=== PATIENT | male | born 1935 | race Caucasian/White ===

== ENCOUNTER 2024-05-22 18:23 | Inpatient (IN) | payer OTHER, SELFPAY ==
[2024-05-22 18:25] VITALS: BP 166/76; PULSE 51; RESP 18; TEMP 36.7; O2SAT 98
[2024-05-22 19:36] VITALS: BMI 20.8
--- NOTE | 2024-05-22 19:55 | XR_ITS ---
Examination: CT brain head without contrast. 2-D sagittal coronal reconstructions Date and time of exam:May 22, 20242024 hours INDICATIONS: Patient fell today with injury to the head, head pain CTDI: vol (mGy):54.6 DLP: (mGycm):1 Technique: Multiple CT axial sections of the brain have been obtained, 5 mm slice thickness. Contrast has not been administered. 2-D sagittal, coronal reconstructions have been obtained Low dose protocols were performed. One or more of the following dose reduction techniques were used; automated exposure control, adjustment of the mA and/or KV according to patient size, use of iterative reconstruction technique. Findings: No significant ventricular enlargement. Old infarct right cerebellar hemisphere Intra-axial or extra-axial hemorrhage density is not seen. No mass effect or midline shift Basal cisterns are not remarkable. Fourth ventricle is midline. Cranial vault intact. Old appearing fracture medial wall right orbit Impression: Negative for acute hemorrhage, mass effect or midline shift
--- NOTE | 2024-05-22 19:55 | XR_ITS ---
Examination: CT chest, without intravenous contrast. CT abdomen, without intravenous contrast. CT pelvis, without intravenous contrast. 2-D sagittal and coronal reconstructions. 3-D reconstructions. Date and time of exam:May 22, 20242024 hours INDICATIONS: Patient fell today with injury to the chest and abdomen, chest pain and abdomen pain CTDI vol (mgy) 8.33 DLP (MGycm)683 Technique: Multiple CT images, 3.0 mm slice thickness, obtained chest, abdomen, pelvis, with the high-resolution 64 slice scanner.. Sagittal and coronal 2-D reconstructions are obtained. 3-D reconstructions Low dose protocols were performed. One or more of the following dose reduction techniques were used; automated exposure control, adjustment of the mA and/or KV according to patient size, use of iterative reconstruction technique. Findings: Thoracic aorta and pulmonary arteries appear intact on this noncontrast study No pneumothorax pulmonary contusion or hemothorax The manubrium of the sternum intact No thoracic vertebral body compression fracture Acute fracture left fifth rib anteriorly without displacement Acute fracture left sixth rib anteriorly without displacement No liver splenic or renal laceration, no perinephric hematoma No gallstones Normal pancreas Abdominal aorta is intact, no free blood in the abdomen Negative for pneumoperitoneum Urinary bladder is intact Transverse prostate dimension 4.7 cm No acute lumbar fracture Bones of the pelvis demonstrate no acute fracture, hips are intact IMPRESSION: Thoracic aorta pulmonary arteries intact No pneumothorax, pulmonary contusion or hemothorax Acute nondisplaced fractures left fifth and sixth ribs anteriorly No abdominal pelvic laceration Abdominal aorta intact No free blood in the abdomen or pelvis
--- NOTE | 2024-05-22 19:55 | XR_ITS ---
Examination: CT cervical spine without contrast 2-D sagittal reconstructions 2-D coronal reconstructions 3-D reconstructions. Exam date and time:May 22, 20242021 hours INDICATIONS: Patient fell today with injury to the neck, neck pain CTDI:vol (mGy 8.06 DLP: (mGycm) 188 Technique: Multiple 2 mm axial sections of the cervical spine have been obtained. The coronal and sagittal reconstructions have been obtained. 3-D reconstructions have been obtained. Low dose protocols were performed. One or more of the following dose reduction techniques were used; automated exposure control, adjustment of the mA and/or KV according to patient size, use of iterative reconstruction technique. Findings: Axial sections demonstrate intact base of the skull. C1 exhibit satisfactory relationship to the odontoid. No acute cervical vertebral body fracture seen. Alignment posterior spinous processes satisfactory. Impression: No acute cervical fracture.
--- NOTE | 2024-05-22 19:57 | PD.EDFALL ---
ED Fall Injury RME/HPI General Chief Complaint: Fall Stated Complaint: FALL Time Seen by Provider: 05/22/24 19:29 Arrival date/time: 05/22/24 18:23 RME / HPI RME / HPI Narrative: 88-year-old male patient was brought in by EMS for evaluation regarding ground-level fall. Apparently patient was going to the restroom and the heard something loud and patient was noted on the floor. Patient sustained laceration to the scalp occipital area. Patient denies any LOC denies any vomiting denies any neck pain but complain of pain to the left anterior lateral chest wall. Denies any hip pain or pelvic pain. Patient is able to be walking but wobbly. Tetanus vaccination is unknown patient has taken it better. Related Data Home Medications ?Medication ?Instructions ?Recorded ?Confirmed latanoprost 0.005 % eye drops 1 drp Both eyes QPM 12/13/21 12/14/22 tamsulosin 0.4 mg capsule 0.4 mg PO QDAY 12/13/21 12/14/22 Allergies Allergy/AdvReac Type Severity Reaction Status Date / Time codeine Allergy Hives Verified 12/14/22 08:21 Review of Systems Review of Systems Narrative Review of Systems: Review of system reviewed and within normal limits except mentioned in HPI ED Exam Narrative Physical exam: VITAL SIGNS: Reviewed. GENERAL APPEARANCE: Alert and interactive, follows commands, no acute distress, HEAD AND FACE: 2 cm gaping laceration scalp, occipital area ENT: PERRL, pink conjunctivitis, eyelid no trauma, Mucous membrane moist. NECK: Supple, nontender, no nuchal rigidity. CHEST: Left anterolateral chest wall tenderness, no crepitus, no paradoxical movement, no retractions. LUNGS: Clear, well ventilated, symmetric, no rales, no wheezing, no ronchi, no stridor, good breath sounds bilaterally. HEART: Regular rate, regular rhythm, no murmur, no gallops. ABDOMEN: Soft, positive bowel sounds, nondistended, no guarding, nontender, no rebound, no masses, RECTAL: Deferred. GENITAL: Deferred. NEUROLOGICAL: Gross motor function intact sensory function intact, Appropriate for age. MUSCULOSKELETAL: low back nontender, full range of motion. EXTREMITIES: Nontender, full range of motion. SKIN: Color pink, dry, no rash, no lacerations, no abrasions, no contusions. LYMPHATICS: Deferred. Course Quality Measures none Orders Category Date Time Status COVID-19 Screening Questionnaire NOW Care 05/22/24 23:13 Active Decision to Admit X1 Care 05/22/24 23:13 Active EKG (ED ONLY) *Do not use* NOW Care 05/22/24 20:37 Completed Consult to Neurology / Tele-Neurology Stat Cons 05/22/24 23:[address] cervical spine wo con Stat Exams 05/22/24 19:[address] chest abdomen pelvis wo Stat Exams 05/22/24 19:[address] head/brain wo con Stat Exams 05/22/24 19:55 Completed EKG (ED Only) Stat Exams 05/22/24 20:37 Ordered CBC [CBC] Stat Lab 05/22/24 20:46 Completed CMP [Comprehensive Metabolic Panel] Stat Lab 05/22/24 20:46 Completed UA, C/S IF [Urinalysis, C/S if Indicated] Stat Lab 05/22/24 20:50 Completed Acetaminophen Tab [Tylenol ES Tab] Med 05/22/24 19:55 Discontinued 1,000 mg PO X1 ONE Tet,Diphth,Pertuss(Acell)-Tdap [Boostrix Vacc] Med 05/22/24 19:55 Discontinued 0.5 ml IMI .ONCE ONE Vital Signs Vital signs: Vital Signs Temperature 98.1 F 05/22/24 18:25 Pulse Rate 51 L 05/22/24 18:25 Respiratory Rate 18 05/22/24 18:25 Blood Pressure 166/76 H 05/22/24 18:25 Pulse Oximetry (%) 98 05/22/24 18:25 Oxygen Delivery Method Room Air 05/22/24 18:25 Fall MDM Narrative MDM Narrative:: 88-year-old male patient was brought in by EMS for evaluation regarding ground-level fall. Apparently patient was going to the restroom and the heard something loud and patient was noted on the floor. Patient sustained laceration to the scalp occipital area. Patient denies any LOC denies any vomiting denies any neck pain but complain of pain to the left anterior lateral chest wall. Denies any hip pain or pelvic pain. Patient is able to be walking but wobbly. Tetanus vaccination is unknown patient has taken it better. Patient's workup showed nondisplaced fracture of fifth and 6 rib on the left, no pneumothorax no hemothorax noted. CT scan of the head came back unremarkable CT scan of the neck came back unremarkable. Laboratory workup also came all came back normal. I was about to discharge the patient however while talking to the patient patient developed sudden onset of unresponsiveness, changes in color, become dusky and slightly cyanotic, and was shaking. Lasting for at least 20 seconds. Me and the witnessed it. I spoke to neurologist on-call, Dr Mederos, discussed the case, who advised me to admit the patient for further management and observation. Spoke with hospitalist, who admitted the patient. Patient data External records reviewed:: None Clinical information provided by:: none Social determinants that could affect healthcare access:: none Patient has the following chronic illnesses:: BPH, dementia, How is presenting disease/condition affected by chronic disease/condition?: exacerbated by Evaluation data The following diagnostics were reviewed and interpreted by me:: lab results, radiology exam(s) and EKG tracing(s) Lab and/or radiology exams considered but not ordered:: None Interpretation Summary: EKG sinus rhythm, ventricular rate of 84 bpm, MT interval 180 MS, no ST segment elevation depression noted. The rest of the labs see MDM Medications / Prescriptions Medications or Prescriptions considered but not ordered:: None Medication administrations:: Medication Administration History Discontinued Medications Acetaminophen (Acetaminophen 500 Mg Tablet) 1,000 mg PO X1 ONE Stop: 05/22/24 19:56 Last Admin: 05/22/24 20:06 Dose: 1,000 mg Documented By: LB Diphtheria/Tetanus/Acell Pertussis (Diphth,Pertuss(Acell),Tet Vac 0.5 Ml Vial) 0.5 ml IMi .ONCE ONE Stop: 05/22/24 19:56 Last Admin: 05/22/24 20:07 Dose: 0.5 ml Documented By: LB Boostrix and Tylenol Consultations Consultation(s) initiated? (list below): No Diagnosis Fall Differential Diagnosis: other (Fall, scalp laceration, rib fracture,) Most likely diagnosis given after review of the tests above:: Fall, scalp laceration, rib fracture, unexplained abnormal neurological episode Admission Indicated Admission indicated?: indicated Explain why admission is indicated or not indicated:: Patient is to be admitted for further management Admission Request Was there a request for admission?: Yes Admission Attestation Admission request attestation: Discussed case with [Dr. Angel] from Hospitalist service regarding admission. Discussed patients ED course, exam findings, labs, and radiology results. The Hospitalist [agrees] to accept the patient for admission. Disposition Plan Disposition Plan: Admit Discharge Plan Plan Patient Disposition: Admit Acute Care w/in Hospital Disposition Comment: stable Prescriptions/Referrals Prescriptions/Med Rec: No Action tamsulosin 0.4 mg capsule 0.4 mg PO QDAY latanoprost 0.005 % drops 1 drp Both eyes QPM Referrals: No Primary/Family,Physician [Primary Care Provider] - In 1 week Problem List Clinical Impression: Fall, Fracture of rib Patient/Caregiver Discharge Instructions Print Language: Kittitian Stand Alone Forms: [facility] Award Info., Patient Portal Info Letter
[2024-05-22] MEDS: ACETAMINOPHEN 500 MG TABLET 1000 MG PO (20:06)
[2024-05-22] MEDS: DIPHTH,PERTUSS(ACELL),TET VAC 0.5 ML VIAL IMi (20:07)
[2024-05-22 21:02] VITALS: BP 141/62; PULSE 74; RESP 18; O2SAT 98
[2024-05-22 21:05] LABS: Basophils % (Auto) 0 % (0-2.5); Eosinophils # (Auto) 0.1 Thou/mm3 (0.0-0.5); Eosinophils % (Auto) 1 % (0-10); Hematocrit 37.5 % (41.0-53.0); Hemoglobin 12.9 g/dL (13.5-16.0); Immature Granulocytes % (Auto) 0 % (0-0); Immature Granulocytes Auto 0.02 Thou/mm3 (0.00-0.00); Lymphocytes # (Auto) 0.9 Thou/mm3 (1.0-4.8); Lymphocytes % (Auto) 10 % (10-50); Mean Corpuscular HGB Conc 34.4 g/dl (31.0-37.0); Mean Corpuscular Hemoglobin 31.4 pg (25.0-35.0); Mean Corpuscular Volume 91 fL (80-100); Monocytes # (Auto) 0.6 Thou/mm3 (0.0-0.8); Monocytes % (Auto) 7 % (0-12); Neutrophils # (Auto) 7.6 Thou/mm3 (1.8-7.7); Neutrophils % (Auto) 82 % (37-80); Nucleated Red Blood Cell % 0 /100 WBC (0); Platelet Count 216 Thou/mm3 (140-440); RDW Standard Deviation 40.4 fL (35.1-43.9); Red Blood Count 4.11 Miln/mm3 (4.50-5.90); White Blood Count 9.3 Thou/mm3 (3.8-10.6)
[2024-05-22 21:10] LABS: Collection Type, Urine Clean Catch; Squamous Epithelial Cell,Urine 0 /hpf (0-5)
[2024-05-22 21:13] LABS: Bilirubin,Urine Negative (Negative); Blood,Urine Trace (Negative); Clarity,Urine Clear (Clear/Hazy); Color,Urine Lt-Yellow (Lt Yel-Yel); Culture Indicated,Urine Not Indicated; Glucose, Urine Negative (Negative); Ketones,Urine Negative (Negative); Leukocyte Esterase,Urine Negative (Negative); Nitrite,Urine Negative (Negative); Protein,Urine Trace (Neg - Trace); RBC,Urine 26 /hpf (0-3); Specific Gravity,Urine 1.017 (1.001-1.035); Urobilinogen,Urine Negative mg/dL (0.0-1.0); WBC,Urine 4 /hpf (0-5)
[2024-05-22 21:27] LABS: Alanine Aminotransferase 17 U/L (10-49); Albumin, Serum 4.2 gm/dL (3.4-4.8); Albumin/Globulin Ratio 1.6 (1.2-2.2); Alkaline Phosphatase 113 U/L (46-116); Anion Gap 7 (7-16); Aspartate Amino Transferase 21 U/L (0-34); BUN/Creatinine Ratio 15 Ratio (12-20); Bilirubin,Total 0.5 mg/dL (0.3-1.2); Blood Urea Nitrogen 16 mg/dL (9-23); Calcium 9.9 mg/dL (8.3-10.6); Calcium (Corrected) 9.9 mg/dL (8.5-10.1); Carbon Dioxide 28.5 mMol/L (20.0-31.0); Chloride 105 mMol/L (98-107); Creatinine (Component) 1.1 mg/dL (0.6-1.3); Estimated Creatinine Clearance 49.7 mL/min (>60); Globulin 2.6 gm/dL (2.3-3.5); Glucose 111 mg/dL (74-106); Osmolality,Calculated 281 (275-295); Potassium 4.9 mMol/L (3.4-5.1); Sodium 140 mMol/L (136-145); Total Protein 6.8 gm/dL (5.7-8.2); eGFR > 60 See Note
--- NOTE | 2024-05-22 21:30 | PC.NURSE ---
Addendum entered by Demarco Funes RN 05/22/24 23:25: 5 teresa per Clare BLAIR Original Note: Lac to back of head cleaned, stapled and dressed by Clare BLAIR.
[2024-05-22 23:00] VITALS: BP 156/72; PULSE 88; RESP 19; TEMP 36.6
--- NOTE | 2024-05-22 23:01 | PC.NURSE ---
Vladimir SEAT INSTALLER at bedside seeing pt. Results endorsed to pt and . Pt was shaky and had a blank stare. Hold discharge for now. SEAT INSTALLER is calling neurologist for consultation.
--- NOTE | 2024-05-22 23:14 | PC.NURSE ---
HBS in room seeing pt. at bedside.
[2024-05-23] VITALS (12 sets, daily range): BP systolic 115–158; BP diastolic 53–85; PULSE 64–90; RESP 15–98; TEMP 36.2–37.4; O2SAT 96–98; BMI 21.1; BMI 14.0
--- NOTE | 2024-05-23 | XR_ITS ---
Examination: MRI brain without intravenous contrast. Date and time of exam: 2024 1525 hrs. Indications: Dizziness episodes today Technique: Multiple axial and sagittal images of the brain obtained. Siemens high-resolution 1.5 Elsy short bore scanners utilized. Sagittal sections, T1-weighted, TR 500, TE 14, are performed. Axial sections proton-density and T2-weighted have been obtained. Inversion recovery axial images, TR 9, 260, TE 111, TI 2500. Diffusion weighted images, axial sections, TR 4800, TE 128, B value 1000 Axial sections, ADC map, TR 4800, TE 128 Findings: Enlargement of the sella turcica is not present. The optic chiasm and infundibular are not remarkable. Prepontine and interpeduncular cisterns are not enlarged. There is no localized enlargement of the medulla or greg. Fourth ventricle and cerebellar tonsils appear normal in position. No subacute area of hemorrhage density is seen. Mass in the cerebellopontine angle region is not evident. Globes symmetrical. Orbital musculature including medial lateral rectus muscles do not exhibit abnormality. Diffusion-weighted images demonstrate no focus of restricted diffusion. Increased white matter signal prominent including focus of increased signal on the FLAIR images in the right cerebellar hemisphere Mass effect upon the ventricular system is not identified. Impression: Negative for acute hemorrhage mass effect or midline shift No acute infarct Prominent foci of increased signal in the white matter including focus increased signal on the FLAIR images in the right cerebellar hemisphere Consider brain MRI post contrast follow-up
--- NOTE | 2024-05-23 02:47 | PD.RESHP ---
Documentation for date of: 05/23/24 HPI History of Present Illness Chief complaint: Status post ground-level fall History of present illness: Mr. Gomes is an 88-year-old male with past medical history significant for glaucoma, BPH, dementia who presented to the ED after having a ground-level fall. Patient states that he hit his head, and lost consciousness at least for 1 minute. Per patient's , patient has not had any falls in the past, and is able to ambulate on his own. Patient is also able to perform all of his IADLs. After the fall, patient had dizziness, and felt like he was going to fall, and was very off balance. Patient's baseline is A&O x [address] In the ED, patient noted to have a posterior laceration which was stapled successfully and no bleeding noted after. Her 11 PM in the ED, patient started having bilateral shakes lasting about 15 seconds, and eyes rolled to the ceiling per ED provider. Patient's at bedside only noted the bilateral shaking, and attributes that to patient wanting to say something but unable to produce speech. Associated symptoms also include left lateral chest pain on deep inspiration due to acute fifth and sixth rib fractures and tenderness to palpation anterior surface of head. Patient denies any chest pain, nausea/vomiting, constipation, diarrhea, numbness in lower extremities. Of note, patient was recently out of his memantine for a week and a half, and just restarted on 05/13/2024, and started noticing patient having difficulty producing speech. In the ED, patient presented with blood pressure 126/76, heart rate of 51 otherwise hemodynamically stable. Labs significant for slightly decreased hemoglobin of 12.9. UA negative for UTI, but did show [address] negative for any acute hemorrhage or bleed. Cervical spine CT showed no acute cervical fracture. CT chest abdomen pelvis showed no pneumothorax no free blood in the abdomen or pelvis but did show acute left fifth and sixth ribs fracture. Past medical history: As mentioned above Past surgical history: Appendectomy at 16 Family history: Noncontributory Social history: Denies any smoking, illicit drug use, alcohol use. Allergies: Codeine Patient will be admitted for further management of syncope status post ground-level fall. Review of Systems Review of Systems Systems Reviewed: All systems reviewed, normal except as documented Exam Vital Signs Temp Pulse Resp BP Pulse Ox O2 Del Method 98 F 74 20 115/53 L 97 Room Air 05/23/24 02:36 05/23/24 02:36 05/23/24 01:21 05/23/24 02:36 05/23/24 02:36 05/23/24 02:36 Narrative Exam General Appearance: Pt in mild acute distress laying in bed. Well-nourished and cooperative to most questions. HEENT: NC/AT except for 2 cm posterior laceration but is now covered in gauze. No scleral icterus, no conjunctival pallor, MMM Lungs: CTAB, no wheezes or crackles appreciated, left rib cage pain on deep inspiration CVS: RRR, S1/S2 heard, no murmurs or rubs appreciated ABD: Soft, non-tender, non-distended, BS + in all 4 quadrants EXT: no deformity/edema/lesions/cyanosis/clubbing, radial pulses 2+ BL, DP pulses 2 + BL SKIN: Skin exam normal except for seborrheic keratosis diffuse across back without any rashes. Neuro: A&O x [address]. No gross neurological deficits. Motor and sensory grossly intact in B/L UL and LL. Psych: Appropriate mood and affect Results: Labs 05/23/24 05:36 05/23/24 05:36 Labs: Short CBC 05/22/24 Range/Units 20:46 WBC 9.3 (3.8-10.6) Thou/mm3 Hgb 12.9 L (13.5-16.0) g/dL Hct 37.5 L (41.0-53.0) % Plt Count 216 (140-440) Thou/mm3 BMP 05/22/24 20:46 Sodium 140 Potassium 4.9 Chloride 105 Carbon Dioxide 28.5 BUN 16 Creatinine 1.1 Glucose 111 H Calcium 9.9 Liver Function 05/22/24 Range/Units 20:46 Total Bilirubin 0.5 (0.3-1.2) mg/dL AST 21 (0-34) U/L ALT 17 (10-49) U/L Alkaline Phosphatase 113 (46-116) U/L Albumin 4.2 (3.4-4.8) gm/dL Urine 05/22/24 Range/Units 20:50 Urine Color Lt-Yellow (Lt Yel-Yel) Urine Clarity Clear (Clear/Hazy) Urine pH 7.0 (5.0-7.0) Ur Specific [place] 1.017 (1.001-1.035) Urine Protein Trace (Neg - Trace) Urine Glucose (UA) Negative (Negative) Quality Measures Quality Measures none Advance care planning discussed with:: patient Medications Home Medications and Allergies Home Medications ?Medication ?Instructions ?Recorded ?Confirmed ?Type latanoprost 0.005 % eye drops 1 drp Both eyes QPM 12/13/21 05/23/24 History tamsulosin 0.4 mg capsule 0.4 mg PO QDAY 12/13/21 05/23/24 History memantine 5 mg tablet 5 mg PO BID 05/23/24 05/23/24 History Allergies Allergy/AdvReac Type Severity Reaction Status Date / Time codeine Allergy Hives Verified 12/14/22 08:21 Visit Medications Acetaminophen (Acetaminophen 325 Mg Tablet) 650 mg PO Q6H PRN PRN Reason: Fever >101.5 or Pain 1-3 Stop: 06/21/24 23:48 Heparin Sodium (Porcine) (Heparin Sod Inj 5000 Unit/Ml Vial) 5,000 unit SC Q12HR BLAIR Stop: 06/06/24 08:59 Latanoprost (Latanoprost Op Leyla 0.005% 2.5 Ml Btl) 0 drop BOTH EYES HS BLAIR Stop: 06/22/24 20:59 Tamsulosin HCl (Tamsulosin Hcl 0.4 Mg Capsule) 0.4 mg PO QDAY BLAIR Stop: 06/22/24 08:59 Discontinued Medications Acetaminophen (Acetaminophen 500 Mg Tablet) 1,000 mg PO X1 ONE Stop: 05/22/24 19:56 Last Admin: 05/22/24 20:06 Dose: 1,000 mg Diphtheria/Tetanus/Acell Pertussis (Diphth,Pertuss(Acell),Tet Vac 0.5 Ml Vial) 0.5 ml IMi .ONCE ONE Stop: 05/22/24 19:56 Last Admin: 05/22/24 20:07 Dose: 0.5 ml Assessment & Plan Plan Mr. Gomes is an 88-year-old male with past medical history significant for glaucoma, BPH, dementia who presented to the ED after having a ground-level fall and admitted for further management of syncope status post ground-level fall. #Syncope #Ground-level fall #? New onset seizure Patient presented with ground-level fall status post syncopal episode stating that he had some loss of consciousness lasting at least 1 minute. Patient also had a witnessed 15 seconds bilateral shaking with eyes rolled to the ceiling. Patient's denies patient ever having a seizure or having these shaking episodes. Patient most likely will have workup to determine cause of syncope either vasovagal, cardiac or neurogenic in nature. Imaging negative for any acute bleeds, but did note acute left fifth and sixth rib fractures. -Admitted to med/tele -Follow-up routine EKG, echocardiogram, orthostatic vitals -Consulted neurology, and recommended MRI and EEG -Ordered Tylenol for mild pain -Ordered PT -Ordered bedside swallow #Dementia Patient takes home memantine 5 mg twice daily. Patient's is concerned that patient's symptoms are due to restarting his home medications recently after being off for a week and a half. -Will reach out to neurology for further recommendations on whether to continue medication in the hospital #BPH Patient takes home tamsulosin 0.5 mg daily -Will restart home medication #Glaucoma Patient takes home latanoprost 1 drop in both eyes at nighttime -Will restart home medication Health Maintenance: DVT prophylaxis: Heparin subcu Diet: Carb consistent [place]: No Lines: PIV Supplemental O2: As needed CODE STATUS: Full code Disposition: Patient admitted to med/tele for further management of syncope workup. Patient's plan and care discussed with my attending, Dr. Alma Mederos MD PGY-2 Attending Provider Attestation/Addendum I attest that I was physically present for the evaluation, physical examination, lab and imaging review of the patient with the residents. I discussed the case with the residents and agree with the findings and plans of care as documented above. Patient is an 88 years old male with past medical history of BPH, dementia and glaucoma who presented to the ED after having a ground-level fall. Patient hit his head during the fall and lost his consciousness for around a minute. At baseline, patient can ambulate and perform his ADLs without assistance. Patient had dizziness and imbalance immediately following the fall. At bedside, patient is alert but oriented to name and place only. Patient also complained of left lateral chest pain on deep inspiration and had tenderness around the same area along with anterior surface of the head. Denies nausea vomiting, bleeding from orifices. at bedside also mentioned that patient used to take memantine which was held for a while and was recently started on double the dose of memantine for about a week and a half. In the ED, his heart rate was 51 otherwise vitals were stable. Head CT was done which was negative for any acute hemorrhage or mass effect or midline shift. Cervical spine CT was negative for acute fractures. CT chest/abdomen/pelvis showed acute left fifth and sixth rib fracture. We will admit the patient for management of syncope and ground-level fall. We will obtain MRI, EEG, echocardiogram, orthostatic vitals and neurology consult. We will obtain bedside swallow evaluation and physical therapy. We will hold memantine for now pending neurology recommendation. Josselyn Marquez MD
--- NOTE | 2024-05-23 03:02 | PC.NURSE ---
up to [facility]SC with assist, venessa well.
--- NOTE | 2024-05-23 04:35 | EKG_ITS ---
[facility] Test Date: 2024-05-23 Pat Name: BERYL MCLAIN Department: Room: 81A Gender: Male Architectural Representative: ZAID : [id number] Requested By: Pepe Delgado Order Number: [id number] Reading MD: Pepe Delgado Measurements Intervals [place] Rate: 76 P: 56 IA: 160 QRS: 60 QRSD: 98 T: 21 QT: 395 QTc: 446 Interpretive Statements SINUS RHYTHM WITH SINUS ARRHYTHMIA MINIMAL VOLTAGE CRITERIA FOR LVH, CONSIDER NORMAL VARIANT [MEETS CRITERIA IN ONE OF: R(aVL), S(V1), R(V5), R(V5/V6)+S(V1)] No previous ECG available for comparison /store/S0/[id number]/ecg/[id number].pdf
--- NOTE | 2024-05-23 04:36 | PC.NURSE ---
pharmacy laboratory technician called regarding patient having irregular heart rhythm second degree heart block type II, patient is asymptomatic, patient alert and oriented, awake resting in bed comfortably, called Dr. Delgado regarding this, previous EKG in chart showed sinus rhythm, stat EKG ordered.
--- NOTE | 2024-05-23 05:15 | PC.NURSE ---
called Dr. Mederos regarding patient getting more confused, restless, patient keeps getting up out of bed. Avasure in place, continue to monitor patient.
--- NOTE | 2024-05-23 05:25 | PC.NURSE ---
property assessment monitor called patient having 3 episodes of ventricular stanby, lasting a few seconds each time. called Dr. Mederos regarding this patient is asymptomatic, no complaints at this time. No new orders at this time
[2024-05-23 06:05] LABS: Basophils % (Auto) 1 % (0-2.5); Eosinophils # (Auto) 0.1 Thou/mm3 (0.0-0.5); Eosinophils % (Auto) 1 % (0-10); Hematocrit 36.8 % (41.0-53.0); Hemoglobin 12.7 g/dL (13.5-16.0); Immature Granulocytes % (Auto) 0 % (0-0); Immature Granulocytes Auto 0.03 Thou/mm3 (0.00-0.00); Lymphocytes # (Auto) 1.7 Thou/mm3 (1.0-4.8); Lymphocytes % (Auto) 21 % (10-50); Mean Corpuscular HGB Conc 34.5 g/dl (31.0-37.0); Mean Corpuscular Hemoglobin 32.1 pg (25.0-35.0); Mean Corpuscular Volume 93 fL (80-100); Monocytes # (Auto) 0.9 Thou/mm3 (0.0-0.8); Monocytes % (Auto) 10 % (0-12); Neutrophils # (Auto) 5.7 Thou/mm3 (1.8-7.7); Neutrophils % (Auto) 68 % (37-80); Nucleated Red Blood Cell % 0 /100 WBC (0); Platelet Count 213 Thou/mm3 (140-440); RDW Standard Deviation 41.2 fL (35.1-43.9); Red Blood Count 3.96 Miln/mm3 (4.50-5.90); White Blood Count 8.5 Thou/mm3 (3.8-10.6)
[2024-05-23 06:44] LABS: Alanine Aminotransferase 15 U/L (10-49); Albumin, Serum 4.2 gm/dL (3.4-4.8); Albumin/Globulin Ratio 1.6 (1.2-2.2); Alkaline Phosphatase 102 U/L (46-116); Anion Gap 8 (7-16); Aspartate Amino Transferase 18 U/L (0-34); BUN/Creatinine Ratio 13 Ratio (12-20); Bilirubin,Total 0.8 mg/dL (0.3-1.2); Blood Urea Nitrogen 14 mg/dL (9-23); Calcium 9.9 mg/dL (8.3-10.6); Calcium (Corrected) 9.9 mg/dL (8.5-10.1); Carbon Dioxide 27.2 mMol/L (20.0-31.0); Chloride 106 mMol/L (98-107); Creatinine (Component) 1.1 mg/dL (0.6-1.3); Estimated Creatinine Clearance 50.4 mL/min (>60); Globulin 2.6 gm/dL (2.3-3.5); Glucose 114 mg/dL (74-106); Magnesium 2.2 mg/dL (1.6-2.6); Osmolality,Calculated 282 (275-295); Potassium 3.8 mMol/L (3.4-5.1); Sodium 141 mMol/L (136-145); Total Protein 6.8 gm/dL (5.7-8.2); eGFR > 60 See Note
[2024-05-23] MEDS: HEPARIN SOD INJ 5000 UNIT/ML VIAL SC ×2 (09:37→21:55)
[2024-05-23] MEDS: TAMSULOSIN HCL 0.4 MG CAPSULE PO (09:37)
--- NOTE | 2024-05-23 14:48 | ESPR_ITS ---
Documentation for date of: 05/23/24 Subjective Subjective Interval history: Patient seen and examined at bedside. He is awake, sitting upright eating. He is oriented to name only, pleasantly confused. Patient does not know how he got the laceration on the back of his head. Denies passing out. Per RN, patient without sitter would try to get out of bed and wander the halls. Otherwise he is redirectable. He has no acute complaints. No witnessed seizure since admission. Exam Vital Signs Temp Pulse Resp BP Pulse Ox O2 Del Method 98.5 F 81 25 H 146/63 H 98 Room Air 05/23/24 12:00 05/23/24 12:00 05/23/24 12:00 05/23/24 12:00 05/23/24 12:05/23/24 12:00 Narrative Exam Constitutional: NAD. AAO x 1 name only. HEENT: Bandage over head laceration posterior head. Vision grossly intact. Respiratory: CTAB bilaterally. Cardiac: Normal S1, S2. No MRG appreciated. Abdomen: Soft, non-distended, non-tender. MSK: No B/L LE edema. Skin: Warm, dry, intact. No obvious lesions. Neuro: Motor and sensation grossly intact. Psychiatric: Appropriate mood and affect. Objective Labs 05/24/24 04:23 05/24/24 04:23 Labs: Laboratory Results - last 24 hr 05/22/24 05/22/24 05/23/24 20:46 20:50 05:36 WBC 9.3 8.5 RBC 4.11 L 3.96 L Hgb 12.9 L 12.7 L Hct 37.5 L 36.8 L MCV 91 93 MCH 31.4 32.1 MCHC 34.4 34.5 RDW Std Deviation 40.4 41.2 Plt Count 216 213 Neut % (Auto) 82 H 68 Lymph % (Auto) 10 21 [place] % (Auto) 7 10 Eos % (Auto) 1 1 Baso % (Auto) 0 1 Neut # (Auto) 7.6 5.7 Lymph # (Auto) 0.9 L 1.7 [place] # (Auto) 0.6 0.9 H Eos # (Auto) 0.1 0.1 Baso # (Auto) 0.0 0.0 Immature Gran # (Auto) 0.02 H 0.03 H Absolute Nucleated RBC 0.00 0.00 Immature Gran % 0 0 Nucleated RBC % 0 0 Sodium 140 141 Potassium 4.9 3.8 D Chloride 105 106 Carbon Dioxide 28.5 27.2 Anion Gap 7 8 BUN 16 14 Creatinine 1.1 1.1 Estim Creat Clear Calc 49.7 L 50.4 L eGFR > 60 > 60 BUN/Creatinine Ratio 15 13 Glucose 111 H 114 H Calculated Osmolality 281 282 Calcium 9.9 9.9 Corrected Calcium 9.9 9.9 Magnesium 2.2 Total Bilirubin 0.5 0.8 AST 21 18 ALT 17 15 Alkaline Phosphatase 113 102 Total Protein 6.8 6.8 Albumin 4.2 4.2 Globulin 2.6 2.6 Albumin/Globulin Ratio 1.6 1.6 Ur Collection Type Clean Catch Urine Color Lt-Yellow Urine Clarity Clear Urine pH 7.0 Ur Specific [place] 1.017 Urine Protein Trace Urine Glucose (UA) Negative Urine Ketones Negative Urine Blood Trace Urine Nitrite Negative Urine Bilirubin Negative Urine Urobilinogen (Auto) Negative Ur Leukocyte Esterase Negative Urine RBC 26 H Urine WBC 4 Ur Squamous Epith Cells 0 Urine Bacteria None Ur Culture Indicated? Not Indicated Quality Measures Quality Measures none Advance care planning discussed with:: other Assessment & Plan Assessment Current Active Medications: Generic Name Dose Route Start Last Admin Trade Name Freq PRN Reason Stop Dose Admin Acetaminophen 650 mg 05/22/24 23:49 Acetaminophen 325 Mg Tablet PO 06/21/24 23:48 Q6H PRN Fever >101.5 or Pain 1-3 Heparin Sodium (Porcine) 5,000 unit 05/23/24 09:00 05/23/24 09:37 Heparin Sod Inj 5000 Unit/Ml Vial SC 06/06/24 08:59 5,000 unit Q12HR BLAIR Administration Latanoprost 0 drop 05/23/24 21:00 Latanoprost Op Leyla 0.005% 2.5 Ml Btl BOTH EYES 06/22/24 20:59 HS BLAIR Tamsulosin HCl 0.4 mg 05/23/24 09:00 05/23/24 09:37 Tamsulosin Hcl 0.4 Mg Capsule PO 06/22/24 08:59 0.4 mg QDAY BLAIR Administration Plan Mr. Gomes is an 88-year-old male with past medical history significant for glaucoma, BPH, dementia who presented to the ED after having a ground-level fall and admitted for further management of syncope status post ground-level fall. #Syncope #Ground-level fall #New onset seizure Patient presented with ground-level fall status post syncopal episode stating that he had some loss of consciousness lasting at least 1 minute. Patient also had a witnessed 15 seconds bilateral shaking with eyes rolled to the ceiling. Patient's denies patient ever having a seizure or having these shaking episodes. Patient most likely will have workup to determine cause of syncope either vasovagal, cardiac or neurogenic in nature. -Follow-up routine EKG, echocardiogram, orthostatic vitals -Consulted neurology, and recommended MRI and EEG -Ordered PT -EEG pending read -MRI ordered -Seizure precautions #Acute Left 5th and 6th rib fractures Secondary to GLF as seen on CT imaging - Pain management - Incentive spirometer #Dementia Patient takes home memantine 5 mg twice daily. Patient's is concerned that patient's symptoms are due to restarting his home medications recently after being off for a week and a half. - Restart pending med rec #BPH - Continue home tamsulosin #Glaucoma Patient takes home latanoprost 1 drop in both eyes at nighttime - Restart home latanoprost Health Maintenance: DVT prophylaxis: Heparin subcu Diet: Carb consistent [place]: No Lines: PIV Supplemental O2: As needed CODE STATUS: Full code Disposition: Patient admitted to med/tele for further management of syncope workup. I have reviewed and discussed the patient's care with my attending, Dr. Felix Najera MD PGY-3 Attending Provider Attestation/Addendum I have seen and examined the patient and all labs, vitals, imaging and agree with the assessment and plan as documented above. Patient EEG done today, pending final read but does appear to show some abnormal signaling c/w possible seizure like activity. Will continue to monitor and followup with neurology, seizure precautions in place. Won Washington MD
--- NOTE | 2024-05-23 15:18 | RESP.EEG ---
EEG COMPLETED AND READY FOR REVIEW. WILL TEXT DR. Angel
--- NOTE | 2024-05-23 19:36 | PC.NURSE ---
public works technician called and said patient had a 5 seconds ventricular pause twice. Patient is resting, family on bed side. MD notified.
--- NOTE | 2024-05-23 20:31 | PC.NURSE ---
Notified by MT pt had an 8 second Ventricular pause, MD made aware no new orders at this time. will continue plan of care
--- NOTE | 2024-05-23 20:31 | PC.NURSE ---
notified by MT pt had a 8 second ventricular pause, md made aware no new orders at this time. will continue plan of care
--- NOTE | 2024-05-23 23:57 | VVPN_ITS ---
Telemedicine visit statement This visit was conducted with the use of interactive audio and video telecommunications system that permits real time communication between the patient and the provider. Patient's verbal consent for virtual visit was obtained on 05/23/24 at 2357. Documentation for date of: 05/23/24 Virtual exam Vital Signs Temp Pulse Resp BP Pulse Ox O2 Del Method 99.3 F 81 23 H 138/67 H 96 Room Air 05/23/24 20:00 05/23/24 21:07 05/23/24 21:07 05/23/24 20:00 05/23/24 20:00 05/23/24 20:00 Objective Labs 05/23/24 05:36 05/23/24 05:36 Labs: Laboratory Results - last 24 hr 05/23/24 05:36 WBC 8.5 RBC 3.96 L Hgb 12.7 L Hct 36.8 L MCV 93 MCH 32.1 MCHC 34.5 RDW Std Deviation 41.2 Plt Count 213 Neut % (Auto) 68 Lymph % (Auto) 21 [place] % (Auto) 10 Eos % (Auto) 1 Baso % (Auto) 1 Neut # (Auto) 5.7 Lymph # (Auto) 1.7 [place] # (Auto) 0.9 H Eos # (Auto) 0.1 Baso # (Auto) 0.0 Immature Gran # (Auto) 0.03 H Absolute Nucleated RBC 0.00 Immature Gran % 0 Nucleated RBC % 0 Sodium 141 Potassium 3.8 D Chloride 106 Carbon Dioxide 27.2 Anion Gap 8 BUN 14 Creatinine 1.1 Estim Creat Clear Calc 50.4 L eGFR > 60 BUN/Creatinine Ratio 13 Glucose 114 H Calculated Osmolality 282 Calcium 9.9 Corrected Calcium 9.9 Magnesium 2.2 Total Bilirubin 0.8 AST 18 ALT 15 Alkaline Phosphatase 102 Total Protein 6.8 Albumin 4.2 Globulin 2.6 Albumin/Globulin Ratio 1.6
[2024-05-24 00:19] VITALS: PULSE 59
[2024-05-24 04:00] VITALS: BP 156/77; PULSE 57; PULSE 85; RESP 19; TEMP 37.2; O2SAT 95
[2024-05-24 05:37] LABS: Basophils % (Auto) 1 % (0-2.5); Eosinophils # (Auto) 0.2 Thou/mm3 (0.0-0.5); Eosinophils % (Auto) 3 % (0-10); Hematocrit 34.6 % (41.0-53.0); Hemoglobin 11.6 g/dL (13.5-16.0); Immature Granulocytes % (Auto) 0 % (0-0); Immature Granulocytes Auto 0.02 Thou/mm3 (0.00-0.00); Lymphocytes # (Auto) 1.3 Thou/mm3 (1.0-4.8); Lymphocytes % (Auto) 23 % (10-50); Mean Corpuscular HGB Conc 33.5 g/dl (31.0-37.0); Mean Corpuscular Hemoglobin 31.4 pg (25.0-35.0); Mean Corpuscular Volume 94 fL (80-100); Monocytes # (Auto) 0.7 Thou/mm3 (0.0-0.8); Monocytes % (Auto) 12 % (0-12); Neutrophils # (Auto) 3.6 Thou/mm3 (1.8-7.7); Neutrophils % (Auto) 62 % (37-80); Nucleated Red Blood Cell % 0 /100 WBC (0); Platelet Count 252 Thou/mm3 (140-440); RDW Standard Deviation 41.4 fL (35.1-43.9); Red Blood Count 3.69 Miln/mm3 (4.50-5.90); White Blood Count 5.9 Thou/mm3 (3.8-10.6)
[2024-05-24 06:08] LABS: Alanine Aminotransferase 14 U/L (10-49); Albumin, Serum 3.8 gm/dL (3.4-4.8); Albumin/Globulin Ratio 1.6 (1.2-2.2); Alkaline Phosphatase 86 U/L (46-116); Anion Gap 7 (7-16); Aspartate Amino Transferase 20 U/L (0-34); BUN/Creatinine Ratio 13 Ratio (12-20); Bilirubin,Total 0.8 mg/dL (0.3-1.2); Blood Urea Nitrogen 13 mg/dL (9-23); Calcium 9.2 mg/dL (8.3-10.6); Calcium (Corrected) 9.4 mg/dL (8.5-10.1); Carbon Dioxide 26.3 mMol/L (20.0-31.0); Chloride 108 mMol/L (98-107); Estimated Creatinine Clearance 55.4 mL/min (>60); Globulin 2.4 gm/dL (2.3-3.5); Glucose 88 mg/dL (74-106); Magnesium 2.2 mg/dL (1.6-2.6); Osmolality,Calculated 280 (275-295); Sodium 141 mMol/L (136-145); Total Protein 6.2 gm/dL (5.7-8.2); eGFR > 60 See Note
[2024-05-24 07:42] VITALS: PULSE 94; RESP 20; RESP 97
[2024-05-24 08:00] VITALS: BP 141/75; PULSE 79; RESP 18; TEMP 37; O2SAT 96
[2024-05-24] MEDS: TAMSULOSIN HCL 0.4 MG CAPSULE PO (08:37)
[2024-05-24] MEDS: DIVALPROEX SOD EC 125 MG TABEC 250 MG PO (08:37)
[2024-05-24] MEDS: HEPARIN SOD INJ 5000 UNIT/ML VIAL SC (08:37)
--- NOTE | 2024-05-24 11:33 | PC.SS ---
Beny Gomes is a 88-year-old male admitted to [place] for Ground Level Fall. SS conducted bedside contact with the patient to complete initial assessment and to discuss discharge planning, pt was resting therefore assessment was completed wioth his Sammie Gomes [phone] via phone.? Sammie confirmed demographic information. Sammie identifies herself as the pts surrogate decision maker. Patient resides at home, with her. Sammie states he is able to complete all ADL?s independently, no need for any source of DME. Pts PCP is Dr. Fontana at the [facility] (last visit was 4 months ago) and pharmacy of choice is [facility] [address] as well. DC option discussed and pt wishes to return home with HH as recommended by PT. Sammie reports their preference for HH is [facility]. Pts family will provide transportation upon DC. No further intervention required at this time, dialysis social worker would be available to address any further concerns. DC Plan: Home with HH ([facility] preferred) Address: Confirmed on FS Contact: -Sammie PCP: Addi ([place])
[2024-05-24 12:00] VITALS: BP 135/68; PULSE 70; PULSE 74; RESP 26; TEMP 36.7; O2SAT 95
--- NOTE | 2024-05-24 13:27 | ESDS_ITS ---
<Statement entered by Won Washington MD - 05/24/24 16:27> I have examined the patient, reviewed labs and imaging findings, discussed the case with the resident(s), and reviewed entered orders. I agree with the plan of care as outlined in this note, with these additional summaries/recommendations: Discussed case with neurology, patient will clear for discharge today with Depakote after identifying seizure activity on EEG. Unclear if seizure caused fall or fall cause seizure. Will send home with home health wound care for gash on the back of the skull and will send short 7-day course of Depakote to local [facility] while he awaits mail order longer-term prescription from [place] pharmacy. Advised follow-up with primary care within 1 week and with neurology within 1 week. Return to ER if new symptoms or worsening symptoms. Won Washington MD Planned Discharge Date 05/24/24 DS: Providers Provider Date of admission: 05/23/24 16:19 Primary care physician: Physician No Primary/Family Admitting Provider: Josselyn Marquez MD Attending Provider on Admission: Josselyn Marquez MD Consults: 05/22/24 23:06 Consult to Neurology / Tele-Neurology Stat Comment: Unexplained neurologic episode Consulting Provider: Adis Mederos 05/23/24 00:29 Referral Physical Therapy Routine Comment: Physician Instructions: 05/23/24 04:22 Referral Physical Therapy Routine Comment: Physician Instructions: Referral Respiratory Therapy Routine Comment: Attending Provider on DC: Won Washington MD Discharging Provider: Won Washington MD DS: Diagnosis Problem List Completed Was Problem List Reviewed/Reconciled?: Yes Hospital Course Hospital Course Hospital course: 88-year-old male with past medical history significant for glaucoma, BPH, and dementia was admitted to the hospital on 05/23/2024 due to a syncopal episode as well as new onset seizures. In the ED patient care complains of ground-level fall and witnessed seizure by patient's . Initially patient was bradycardic, hypertensive, and afebrile. Initial labs were relevant for low hemoglobin (12.9). Initial imaging included cervical spine CT which was unremarkable, chest/abdomen/pelvis CT which showed acute nondisplaced fractures of left fifth and sixth rib anteriorly, head CT which was unremarkable, brain MRI showed increased signal in the right cerebellar hemisphere, EKG showed sinus rhythm, and EEG was abnormal. Neurology was consulted given patient's likely new onset seizures inside the patient on Depakote 250 mg twice daily. Patient did not have any further seizures throughout the hospital stay. At the time of discharge patient was stable enough to be discharged home with home health and close follow-up with neurologist. Discharge plan: Please follow-up with [facility] care physician in 1 week after discharge Please follow-up with neurologist Dr Mederos in 1 to 2 weeks after discharge Please maintain posterior head laceration clean with either water and soap or normal saline, and change dressing every 12-24hrs. You have been started on Depakote 250 mg twice daily Please continue taking all home medications as prescribed Please come back to the ER if symptoms persist or worsen Problems: #Syncope #Ground-level fall #New onset seizure #Acute Left 5th and 6th rib fractures #Dementia #BPH #Glaucoma Case disclosed with Attending Dr. Felix Schroeder PGY1 Status at Discharge Overall status at discharge: patient is progressing back to baseline Time Spent with Patient Time attestation: Total time spent providing and/or coordinating discharge services:>35 min Home Health Home Health Referral Orders: 05/24/24 13:04 Home Health Referral Routine Reason For Exam: PT and wound care Home-Bound The patient must either because of illness or injury, need the aid of supportive devices such as crutches, canes, wheelchairs, and walkers; the use of special transportation; or the assistance of another person in order to leave their place of residence; OR have a condition such that leaving his or her home is medically contraindicated. In addition, the patient also meets the following criteria: patient is normally unable to leave the home and leaving home requires considerable taxing effort. Addendum to Home Health Certification Practitioner's Certification: I certify that the patient has been under my care in the hospital and the care of attending physician (see below). We had a awev-ri-reco encounter on (see date below). My clinical findings indicate that the patient is home bound per the above criteria and the Home Health Services noted in these orders are medically necessary. The primary reason for the [id number] encounter is related to the fact that the patient requires home health services. Date Certifying [facility] Physician Encounter: 05/23/24 Physician's Name who will Assume Oversight for HH Services: Physician No Primary/Family BUSINESS DEVELOPMENT SPECIALIST - Community Resources: No PT to Evaluate: Yes PT to evaluate and provide a treatmnet plan to increase patient's mobility and strength. Wound Care: Yes Home Health RN - Wound Care Order: per wound nurse IV Therapy: No RN Safety Evaluation: Yes RN to evaluate and create a plan of care that will produce positive outcomes. Palliative Treatment: No Palliative treatment and evaluate the need for hospice. Home Health Aide - Personal Care: No Home Health Aide to assist with any ADL's. Exam Vital Signs Temp Pulse Resp BP Pulse Ox O2 Del Method 98.6 F 74 18 141/75 H 96 Room Air 05/24/24 08:00 05/24/24 12:00 05/24/24 08:00 05/24/24 08:00 05/24/24 08:00 05/24/24 08:00 Narrative Exam General: A/O x1 (only to person), no acute distress Eyes: PERRL, EOMI. Anicteric, vision grossly intact. Ears: No ear pain, no ear discharge, Hearing grossly intact. Nose: No nasal discharge. Mouth/Throat: Moist mucous membranes, no redness, no lesions. Neck: Neck supple, non-tender, no cervical lymphadenopathy. Lungs: Clear RACHEL to auscultation and percussion, No accessory muscle use. Cardio: Normal S1/S2, regular rhythm, no murmurs, no JVD Abdomen: Soft, non-tender, no palpable masses, peristalsis present, no guarding or rebound. Extremities: Symmetrical, no significant deformities, no peripheral edema , non-tender, peripheral pulses presents. Skin: No rashes, no lesions, warm to touch. Posterior scalp laceration covered by dressing Neuro: No focal neurological deficits. motor and sensory intact Psych: Cooperative, appropriate mood and effect. Discharge Plan Plan Patient Disposition: Home w/HOME HEALTH Disposition Comment: stable Care Plan Goals: Please follow-up with [facility] physician in 1 week after discharge Please follow-up with neurologist Dr Mederos in 1 to 2 weeks after discharge Please maintain posterior head laceration clean with either water and soap or normal saline, and change dressing every 12-24hrs. You have been started on Depakote 250 mg twice daily Please continue taking all home medications as prescribed Please come back to the ER if symptoms persist or worsen Prescriptions/Referrals Prescriptions/Med Rec: New divalproex 250 mg tablet,delayed release (DR/EC) 250 mg PO BID Qty: 60 1RF divalproex 250 mg tablet,delayed release (DR/EC) 250 mg PO BID 30 Days Qty: 60 2RF divalproex [Depakote] 250 mg tablet,delayed release (DR/EC) 250 mg PO BID 7 Days Qty: 14 0RF Continued tamsulosin 0.4 mg capsule 0.4 mg PO QDAY latanoprost 0.005 % drops 1 drp Both eyes QPM memantine 5 mg tablet 5 mg PO BID Referrals: No Primary/Family,Physician [Primary Care Provider] - Patient/Caregiver Discharge Instructions Other Discharge Activity Instructions:: Please follow-up with primary care physician in 1 week after discharge Please follow-up with neurologist Dr Mederos in 1 to 2 weeks after discharge Please maintain posterior head laceration clean with either water and soap or normal saline, and change dressing every 12-24hrs. You have been started on Depakote 250 mg twice daily Please continue taking all home medications as prescribed Please come back to the ER if symptoms persist or worsen Education Materials: Seizures and Epilepsy Print Language: Liberian Stand Alone Forms: Hamida Award Info., Patient Portal Info Letter Discharge Order Discharge Orders: Discharge (Routine); Ordered 05/24/24 Ordered By: Won Washington Quality Discharge Quality Measures VTE prophylaxis
--- NOTE | 2024-05-24 15:06 | PC.NURSE ---
Patient has a discharge order in the morning but need to confirm with Dr. Mederos if she has other discharge instructions. Patient's has a lot of questions. Hospitalist visited the patient and talked to the past 12 in the afternoon. requested dressing change before going home as well as medications to take home. Called pharmacy to make sure medicines were sent and ready. [facility] pharmacy stated that it was not received yet. Hospitalist was called again. [facility] confirmed around 14:55 PM that it will take an hour for the medicines to be ready. Patient's family was informed.
--- NOTE | 2024-05-25 08:35 | PC.CC ---
Pt entered into [facility], referrals sent to [facility] per patient request
== END 2024-05-24 14:59 | disposition home health service (06) | DRG 312 ==
LOC: SERX 23:13 → SERHOLD 05-23 00:28 → S3SX 05-23 03:47 → S3NX 05-23 07:55
PROVIDERS: Nurse Practitioner Family; Student in an Organized Health Care Education/Training Program; Admitting Provider Student in an Organized Health Care Education/Training Program; Emergency Provider Emergency Medicine; Visit Provider Student in an Organized Health Care Education/Training Program
DX: R55 Syncope and collapse (principal); S22.42XA Multiple fractures of ribs, left side, initial encounter for closed fracture; S01.01XA Laceration without foreign body of scalp, initial encounter; R56.9 Unspecified convulsions; F03.90 Unspecified dementia, unspecified severity, without behavioral disturbance, psychotic disturbance, mood disturbance, and anxiety; N40.0 Benign prostatic hyperplasia without lower urinary tract symptoms; H40.9 Unspecified glaucoma; Z79.899 Other long term (current) drug therapy; Z90.49 Acquired absence of other specified parts of digestive tract; Z88.5 Allergy status to narcotic agent; W18.00XA Striking against unspecified object with subsequent fall, initial encounter; Y92.012 Bathroom of single-family (private) house as the place of occurrence of the external cause
CPT/HCPCS: 36415; 70450; 70551; 71250; 72125; 74176; 80053; 81001; 83735; 85025; 90471; 90715; 93005; 93225; 94664; 94762; 95816; 97162; 99285; G0378; J1643; A9270

== ENCOUNTER 2024-06-24 15:17 | Inpatient (IN) | payer OTHER, MEDICARE, SELFPAY ==
[2024-06-24] VITALS (14 sets, daily range): BP systolic 175–199; BP diastolic 61–81; PULSE 39–54; RESP 11–21; TEMP 36.7–37.2; O2SAT 91–95; BMI 23.3
--- NOTE | 2024-06-24 15:27 | EKG_ITS ---
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
--- NOTE | 2024-06-24 15:39 | PD.EDCHEST ---
ED Chest Pain RME/HPI General Chief Complaint: Chest Pain Stated Complaint: CHEST PAIN Time Seen by Provider: 06/24/24 15:31 Arrival date/time: 06/24/24 15:17 RME / HPI RME / HPI narrative: DR. ARSHAD MAIN ED EVALUATION: This section includes all my notes and documentations, including HPI, PE, and ED course.? Joel Arshad MD HPI: 88 year old male with past medical history significant for glaucoma, BPH, dementia presents to the Emergency Department [facility] with a couple hour history of chest pain. No shortness of breath. No other complaints. ROS: All negative except as documented in HPI. Physical Exam: General:? Alert and oriented.? No acute distress when remaining still.? Eyes:? Conjunctivae and lids clear. ENT:? No nasal congestion.? ? Neck:? Supple. Heart: Sinus bradycardia (40 bpm). Lungs:? No respiratory distress.? Good air movement.? No rhonchi, wheezing, rales.? Abdomen:? Soft and nontender.? Legs:? No clubbing, cyanosis, edema. Skin:? Warm and dry.? Neuro:? Alert and oriented X 1. I reviewed all diagnostic test results. My interpretation of the EKG is?Sinus bradycardia (40 bpm) with third-degree AV block and nonspecific ST-T changes. Blood tests and urine tests unremarkable. At this point, diagnoses include third-degree heart block. I discussed the case with our inspector filters and our hospitalist.? About the presentation and exam and diagnostics and treatments here.? And need of further care in the hospital. Will accept the patient. Joel Arshad MD Related Data Home Medications ?Medication ?Instructions ?Recorded ?Confirmed latanoprost 0.005 % eye drops 1 drp Both eyes QPM 12/13/21 05/23/24 tamsulosin 0.4 mg capsule 0.4 mg PO QDAY 12/13/21 05/23/24 memantine 5 mg tablet 5 mg PO BID 05/23/24 05/23/24 Previous Rx's ?Medication ?Instructions ?Recorded divalproex 250 mg tablet,delayed 250 mg PO BID #60 tabs 05/24/24 release divalproex 250 mg tablet,delayed 250 mg PO BID 30 days #60 tabs 05/24/24 release Allergies Allergy/AdvReac Type Severity Reaction Status Date / Time codeine Allergy Hives Verified 12/14/22 08:21 Course Quality Measures none Orders Category Date Time Status Bedside COVID-19 Antigen Test NOW Care 06/24/24 15:46 Active Bedside Influenza A&B Antigen Test NOW Care 06/24/24 15:46 Completed COVID-19 Screening Questionnaire NOW Care 06/24/24 16:41 Active Decision to Admit X1 Care 06/24/24 16:41 Completed EKG (ED ONLY) *Do not use* NOW Care 06/24/24 15:27 Completed EKG (ED ONLY) *Do not use* NOW Care 06/24/24 15:46 Completed Saline [Insert IV] NOW Care 06/24/24 15:46 Active EKG (ED Only) Stat Exams 06/24/24 15:27 Draft EKG (ED Only) Stat Exams 06/24/24 15:46 Draft XR chest 1V portable Stat Exams 06/24/24 15:46 Completed BNP [B-Type Natriuretic Peptide] Stat Lab 06/24/24 16:00 Completed CBC Stat Lab 06/24/24 16:00 Completed CMP [Comprehensive Metabolic Panel] Stat Lab 06/24/24 16:00 Completed Magnesium Stat Lab 06/24/24 16:00 Completed PT [Prothrombin Time with INR] Stat Lab 06/24/24 16:00 Completed PTT [Partial Thromboplastin Time] Stat Lab 06/24/24 16:00 Completed TSH [Thyroid Stimulating Hormone] Stat Lab 06/24/24 16:00 Completed Troponin I Stat Lab 06/24/24 16:00 Completed UA, C/S IF [Urinalysis, C/S if Indicated] Stat Lab 06/25/24 15:30 Completed Vital Signs Vital signs: Vital Signs Pulse Rate 40 L 06/24/24 15:26 Respiratory Rate 21 H 06/24/24 15:26 Blood Pressure 184/61 H 06/24/24 15:26 Pulse Oximetry (%) 94 L 06/24/24 15:26 Chest Pain MDM Narrative MDM Narrative:: ICatia am scribing for and in the presence of Dr. Arshad. Patient data External records reviewed:: [facility] previous records (Reviewed last admission discharge dated 05/24/24, patient admitted for the following: Fall) and EMS form Clinical information provided by:: patient and EMS Social determinants that could affect healthcare access:: none Patient has the following chronic illnesses:: glaucoma, BPH, dementia How is presenting disease/condition affected by chronic disease/condition?: exacerbated by Evaluation data The following diagnostics were reviewed and interpreted by me:: lab results, radiology exam(s) and EKG tracing(s) (My interpretation of the EKG is: Sinus bradycardia (40 bpm) with third-degree AV block and nonspecific ST-T changes. Joel Arshad MD) Lab and/or radiology exams considered but not ordered:: none Interpretation Summary: Third-degree heart block Medications / Prescriptions Medications or Prescriptions considered but not ordered:: none Medication administrations:: Medication Administration History Atropine Sulfate (Atropine Sulf Inj 0.1 Mg/Ml Syr 10 Ml) 1 mg IV Q3MIN PRN PRN Reason: BRADYCARDIA HR LESS THAN 30 Doxycycline Hyclate (Doxycycline 100 Mg Tablet) 100 mg PO BID [facility] Stop: 07/02/24 20:59 Last Admin: 06/25/24 20:36 Dose: 100 mg Documented By: SOHEILA Guaifenesin (Guaifenesin Syrup 200 Mg/10 Ml Udc) 100 mg PO QID PRN; Protocol PRN Reason: COUGH Stop: 07/24/24 22:30 Last Admin: 06/25/24 15:37 Dose: 100 mg Documented By: MGJenny Admin: 06/24/24 22:37 Dose: 100 mg Documented By: ARTI Cefazolin Sodium/Dextrose (Ancef Ivpb) 1 gm in 50 mls @ 100 mls/hr IV Q6HR [facility]ARI Stop: 06/26/24 00:29 Last Admin: 06/25/24 17:33 Dose: 100 mls/hr Documented By: Infusion: 06/25/24 14:08 Dose: Infused Documented By: Admin: 06/25/24 13:38 Dose: 100 mls/hr Documented By: MU Valproic Acid (Valproic Acid Syrup 250 Mg/5 Ml Udc) 125 mg PO BID [facility] Stop: 07/26/24 08:59 Discontinued Medications Atropine Sulfate (Atropine Sulf Inj 0.1 Mg/Ml Syr 10 Ml) 1 mg IV Q3MIN PRN PRN Reason: BRADYCARDIA HR LESS THAN 30 Atropine Sulfate (Atropine Sulf Inj 1 Mg/Ml Vial) Confirm Administered Dose 1 mg .ROUTE .STK-MED ONE Stop: 06/25/24 07:00 Last Admin: 06/25/24 07:16 Dose: Not Given Documented By: Non-Admin Reason: Duplicate Medication on eMAR Cefazolin Sodium (Cefazolin Inj 1 Gm Vial) Confirm Administered Dose 2 gm .ROUTE [facility] Stop: 06/25/24 07:00 Last Admin: 06/25/24 07:16 Dose: Not Given Documented By: Non-Admin Reason: Duplicate Medication on eMAR Fentanyl Citrate (Fentanyl Cit Inj 50 Mcg/Ml Amp 2ml) Confirm Administered Dose 100 mcg .ROUTE [facility] Stop: 06/25/24 07:00 Last Admin: 06/25/24 07:16 Dose: Not Given Documented By: Non-Admin Reason: Duplicate Medication on eMAR Fentanyl Citrate (Fentanyl Cit Inj 50 Mcg/Ml Amp 2ml) Confirm Administered Dose 100 mcg .ROUTE .[facility] ONE Stop: 06/25/24 07:01 Last Admin: 06/25/24 07:17 Dose: Not Given Documented By: Non-Admin Reason: Duplicate Medication on eMAR Flumazenil (Flumazenil Inj 0.1 Mg/Ml Vial 10 Ml) Confirm Administered Dose 1 mg .ROUTE .[facility] ONE Stop: 06/25/24 07:00 Last Admin: 06/25/24 07:16 Dose: Not Given Documented By: Non-Admin Reason: Duplicate Medication on eMAR Dopamine HCl/Dextrose (Intropin In D5w Ivpb) 400 mg in 250 mls @ 7.952 mls/hr IV .Q24H [facility] Stop: 07/24/24 17:26 Last Admin: 06/24/24 17:42 Dose: Not Given Documented By: DAVID Non-Admin Reason: Cancelled by Provider Ceftriaxone Sodium 1,000 mg/ (Sodium Chloride) 50 mls @ 100 mls/hr IV HS [facility]IR Stop: 07/02/24 00:29 Last Admin: 06/25/24 00:58 Dose: 100 mls/hr Documented By: ARTI Cefazolin Sodium/Dextrose (Ancef Ivpb) 1 gm in 50 mls @ 100 mls/hr IV Q6HR [facility] Stop: 06/26/24 00:29 Cefazolin Sodium/Dextrose (Ancef Ivpb) 1 gm in 50 mls @ 100 mls/hr IV Q6HR [facility] Stop: 06/25/24 18:29 Lidocaine/Epinephrine (Lidocaine 1% W/Epi 1:100k 20 Ml Vial) Confirm Administered Dose 20 ml .ROUTE .STK-MED ONE Stop: 06/25/24 07:00 Last Admin: 06/25/24 07:16 Dose: Not Given Documented By: JR Non-Admin Reason: Duplicate Medication on eMAR Lidocaine/Epinephrine (Lidocaine 1% W/Epi 1:100k 20 Ml Vial) Confirm Administered Dose 60 ml .ROUTE .STK-MED ONE Stop: 06/25/24 07:02 Last Admin: 06/25/24 07:17 Dose: Not Given Documented By: JR Non-Admin Reason: Duplicate Medication on eMAR Midazolam HCl (Midazolam Inj 1 Mg/Ml Vial 2 Ml) Confirm Administered Dose 2 mg .ROUTE .STK-MED ONE Stop: 06/25/24 07:00 Last Admin: 06/25/24 07:16 Dose: Not Given Documented By: JR Non-Admin Reason: Duplicate Medication on eMAR Midazolam HCl (Midazolam Inj 1 Mg/Ml Vial 2 Ml) Confirm Administered Dose 6 mg .ROUTE .STK-MED ONE Stop: 06/25/24 07:01 Last Admin: 06/25/24 07:17 Dose: Not Given Documented By: JR Non-Admin Reason: Duplicate Medication on eMAR Morphine Sulfate (Morphine Sulf Inj 10 Mg/Ml Vial) Confirm Administered Dose 10 mg .ROUTE .STK-MED ONE Stop: 06/25/24 08:07 Last Admin: 06/25/24 09:59 Dose: Not Given Documented By: EC Non-Admin Reason: Duplicate Medication on eMAR Naloxone HCl (Naloxone Inj 0.4 Mg/Ml Vial) Confirm Administered Dose 0.4 mg .ROUTE .STK-MED ONE Stop: 06/25/24 07:00 Last Admin: 06/25/24 07:17 Dose: Not Given Documented By: JR Non-Admin Reason: Duplicate Medication on eMAR Ondansetron HCl (Ondansetron Inj 2 Mg/Ml Inj 2 Ml) 4 mg IV Q6H PRN; Protocol PRN Reason: NAUSEA OR VOMITING Stop: 07/24/24 17:24 Quetiapine Fumarate (Quetiapine Fumarate 25 Mg Tablet) 12.5 mg PO X1 ONE Stop: 06/25/24 21:01 Last Admin: 06/25/24 20:37 Dose: 12.5 mg Documented By: SOHEILA Valproic Acid (Valproic Acid Syrup 250 Mg/5 Ml Udc) 250 mg PO BID [facility] Stop: 07/24/24 20:59 Last Admin: 06/25/24 11:12 Dose: Not Given Documented By: MGD Non-Admin Reason: NPO Admin: 06/24/24 22:37 Dose: 250 mg Documented By: ARTI None Consultations Consultation(s) initiated? (list below): Yes Consultation #1 (Physician, Specialty, Details): I discussed the case with our inspector filters.? About the presentation and exam and diagnostics and treatments here.? And need of further care in the hospital. Recommended admission for pacemaker. Diagnosis Chest Pain Differential Diagnosis: stable angina, unstable angina pectoris, atypical chest pain, st elevation myocardial infarction, costochondritis, chest pain and other (Heart block) Most likely diagnosis given after review of the tests above:: Third-degree heart block Admission Indicated Admission indicated?: indicated Explain why admission is indicated or not indicated:: Third-degree heart block Admission Request Was there a request for admission?: Yes Admission Attestation Admission request attestation: Discussed case with Hospitalist service regarding admission. Discussed patients ED course, exam findings, labs, and radiology results. The Hospitalist [agrees] to accept the patient for admission. Disposition Plan Disposition Plan: Admit Discharge Plan Plan Patient Disposition: Admit Acute Care w/in Hospital Problem List Clinical Impression: Third degree heart block
--- NOTE | 2024-06-24 15:46 | XR_ITS ---
Examination: AP chest single view Technique one AP portable upright chest single view Exam date and time: June 24, 2024 1637 hours INDICATIONS: Shortness of breath today. FINDINGS: Significant bilateral pneumonia, diffuse in the right lung and at the left base Normal heart size Prominent osteopenia IMPRESSION: Significant bilateral pneumonia
--- NOTE | 2024-06-24 15:46 | EKG_ITS ---
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
[2024-06-24 16:11] LABS: Basophils # (Auto) 0.1 Thou/mm3 (0.0-0.2); Basophils % (Auto) 1 % (0-2.5); Eosinophils # (Auto) 0.2 Thou/mm3 (0.0-0.5); Eosinophils % (Auto) 2 % (0-10); Hematocrit 35.4 % (41.0-53.0); Immature Granulocytes % (Auto) 0 % (0-0); Immature Granulocytes Auto 0.02 Thou/mm3 (0.00-0.00); Lymphocytes # (Auto) 1.3 Thou/mm3 (1.0-4.8); Lymphocytes % (Auto) 14 % (10-50); Mean Corpuscular HGB Conc 33.9 g/dl (31.0-37.0); Mean Corpuscular Hemoglobin 31.6 pg (25.0-35.0); Mean Corpuscular Volume 93 fL (80-100); Monocytes # (Auto) 0.9 Thou/mm3 (0.0-0.8); Monocytes % (Auto) 9 % (0-12); Neutrophils # (Auto) 7.1 Thou/mm3 (1.8-7.7); Neutrophils % (Auto) 74 % (37-80); Nucleated Red Blood Cell % 0 /100 WBC (0); Platelet Count 237 Thou/mm3 (140-440); RDW Standard Deviation 42.8 fL (35.1-43.9); White Blood Count 9.6 Thou/mm3 (3.8-10.6)
[2024-06-24 16:26] LABS: INR 1.2 (0.9-1.3); Partial Thromboplastin Time 29.9 Seconds (22.0-36.0)
[2024-06-24 16:30] LABS: B-Type Natriuretic Peptide 906 pg/mL (0-100)
[2024-06-24 16:34] LABS: Alanine Aminotransferase 16 U/L (10-49); Albumin, Serum 3.7 gm/dL (3.4-4.8); Albumin/Globulin Ratio 1.6 (1.2-2.2); Alkaline Phosphatase 81 U/L (46-116); Anion Gap 7 (7-16); Aspartate Amino Transferase 18 U/L (0-34); BUN/Creatinine Ratio 15 Ratio (12-20); Bilirubin,Total 0.5 mg/dL (0.3-1.2); Blood Urea Nitrogen 16 mg/dL (9-23); Calcium (Corrected) 9.2 mg/dL (8.5-10.1); Carbon Dioxide 24.6 mMol/L (20.0-31.0); Chloride 107 mMol/L (98-107); Creatinine (Component) 1.1 mg/dL (0.6-1.3); Estimated Creatinine Clearance 55.5 mL/min (>60); Globulin 2.3 gm/dL (2.3-3.5); Glucose 105 mg/dL (74-106); Magnesium 2.2 mg/dL (1.6-2.6); Osmolality,Calculated 278 (275-295); Potassium 4.3 mMol/L (3.4-5.1); Sodium 139 mMol/L (136-145); Thyroid Stimulating Hormone 3.54 uIU/mL (0.55-4.78); Troponin I 0.021 ng/mL (0.0-0.045); eGFR > 60 See Note
--- NOTE | 2024-06-24 16:39 | PD.IMCONS ---
HPI Consult Narrative History of present illness: This is a 88 year old male with past medical history significant for glaucoma, BPH, dementia pt seen in the Er with atypical chest pain, weekness and fatigue EKG shows complete Heart block ; HR 39 / min troponin negative cc:: cc: Meds Home Medications and Allergies Home Medications ?Medication ?Instructions ?Recorded ?Confirmed ?Type latanoprost 0.005 % eye drops 1 drp Both eyes QPM 12/13/21 05/23/24 History tamsulosin 0.4 mg capsule 0.4 mg PO QDAY 12/13/21 05/23/24 History memantine 5 mg tablet 5 mg PO BID 05/23/24 05/23/24 History Allergies Allergy/AdvReac Type Severity Reaction Status Date / Time codeine Allergy Hives Verified 12/14/22 08:21 Exam Vital Signs Temp Pulse Resp BP Pulse Ox O2 Del Method 98.0 F 40 L 16 179/61 H 92 L Room Air 06/24/24 16:25 06/24/24 16:25 06/24/24 16:25 06/24/24 16:25 06/24/24 16:25 06/24/24 16:25 Routine HEENT Exam Head: Present normocephalic and atraumatic Eye: Present EOMI and PERRL ENT: Present mucous membranes moist Routine Neck Exam Neck: Present supple and trachea midline Routine Respiratory Exam Respiratory: Present chest non-tender, lungs clear, normal breath sounds and no resp distress Routine Cardiovascular Exam Cardiovascular: Present RRR Routine Abdominal Exam Abdominal: Present soft and normoactive bowel sounds Routine Extremities Exam Extremities: Present full ROM Routine Skin Exam Skin: Present intact, dry and warm Routine Neurological Exam Neurological: Present alert, oriented X3 and CN II-XII intact Routine Psychiatric Exam Psychiatric: Present normal affect and normal thought process Results Labs 06/24/24 16:00 06/24/24 16:00 Labs: Short CBC 06/24/24 Range/Units 16:00 WBC 9.6 (3.8-10.6) Thou/mm3 Hgb 12.0 L (13.5-16.0) g/dL Hct 35.4 L (41.0-53.0) % Plt Count 237 (140-440) Thou/mm3 BMP 06/24/24 16:00 Sodium 139 Potassium 4.3 Chloride 107 Carbon Dioxide 24.6 BUN 16 Creatinine 1.1 Glucose 105 Calcium 9.0 Cardiac Enzymes 06/24/24 Range/Units 16:00 Troponin I 0.021 (0.0-0.045) ng/mL Liver Function 06/24/24 Range/Units 16:00 Total Bilirubin 0.5 (0.3-1.2) mg/dL AST 18 (0-34) U/L ALT 16 (10-49) U/L Alkaline Phosphatase 81 (46-116) U/L Albumin 3.7 (3.4-4.8) gm/dL Assessment and Plan Assessment and plan (1) Bradycardia: Status: Acute (2) Heart block atrioventricular: Status: Acute (3) Chest pain: Status: Acute Additional Assessment & Plan Additional Plan: patient appears to have synptomatic heart block - 3 degree HR 39/min we will plan for permanent pacemaker placement
--- NOTE | 2024-06-24 17:42 | ESHP_ITS ---
<Statement entered by Nyla Mederos MD - 06/24/24 18:34> Patient is a 88-year-old male with past medical history significant for dementia, BPH, seizure disorder, glaucoma who presented to the ED on 06/24/2024 with intermittent chest pain for the last 2 hours admitted for further management of third-degree heart block. Patient is a poor historian however but denies any other symptoms except for shortness of breath and chest pain. Cardiology, Dr. Awan recommend patient to be admitted for permanent pacemaker placement in the morning. Due to patient's blood pressure, with MAP sustaining well above 65, patient can safely be managed on the floors. Initially consider dopamine drip, at a rate of 2.5 mcg/kg however, due to elevated blood pressure, pharmacy recommended not starting medication. Patient will admitted to telemetry, and will be n.p.o. after midnight. Atropine PRN added and to give if HR drops below 30, and to notify provider. If patient's BP and MAP start decreasing, consider ICU upgrade for dobutamine gtt. I discussed with and supervised the international sourcing manager physician who took care of this patient. I personally saw and examined the patient and discussed the assessment and plan with the entire medicine team, including my attending Dr. Iqbal, I agree with most of the assessment and plan as documented below Nyla Mederos M.D. PGY-2 Documentation for date of: 06/24/24 HPI History of Present Illness Chief complaint: Chest pain History of present illness: 88 y/o M with PMHx significant for dementia, BPH, seizures, glaucoma presenting with chief complaint of intermittent chest pain x 2 hours. Patient altered at baseline, history taken from chart review and daughter at bedside. Patient reports moderate chest pain localized to center, unable to describe quality, intermittent lasting only few minutes at a time. Patient notes mild shortness of breath during this time. Patient denies weakness, fatigue, lightheadedness, nausea, vomiting, fevers. ED COURSE: Lab significant for: Troponin negative, BNP 906 without previous results. Imaging significant for: Chest x-ray indicates possible mild pneumonia right lung. EKG showed complete heart block with bradycardia. Dr. Awan consulted by ED, recommended admission to telemetry pacemaker placement tomorrow. PMH: Seizures, dementia, BPH, glaucoma PSH: Appendectomy SH: Patient quit smoking in 1960, quit drinking many years ago. No history illicit drug use. FH: Brother had unknown heart disease. Allergies: Codeine Medications: Depakote, tamsulosin, memantine, latanoprost eyedrops Review of Systems Review of Systems Systems Reviewed: All systems reviewed, normal except as documented Past Medical History Past Medical History Comments PMH COMMENT: PMH: Seizures, dementia, BPH, glaucoma PSH: Appendectomy SH: Patient quit smoking in 1960, quit drinking many years ago. No history illicit drug use. FH: Brother had unknown heart disease. Allergies: Codeine Medications: Depakote, tamsulosin, memantine, latanoprost eyedrops Exam Vital Signs Temp Pulse Resp BP Pulse Ox O2 Del Method 98.0 F 39 L 15 175/62 H 94 L Room Air 06/24/24 16:25 06/24/24 17:01 06/24/24 17:01 06/24/24 17:01 06/24/24 17:01 06/24/24 16:25 Narrative Exam PE: Gen: Well-developed and well-nourished. Thin. Elderly. HEENT: NCAT, PERRLA, EOMI, MMM, anicteric conjunctivae. CVS: normal S1 and S2. No M/R/G. Bradycardic, complete heart block. Resp: CTA B/L. No rhonchi, rales, crackles or wheezing. Abd: soft, non-tender, non-distended. MSK: Good ROM in BUE & BLE. No rash. 1+ pitting edema BLE. Neuro: CN II-XII grossly intact. Strength 5/5 in BUE & BLE. Alert and oriented x 2, baseline for patient. Psych: appropriate mood and affect. Results: Labs 06/25/24 04:38 06/25/24 04:38 Labs: Short CBC 06/24/24 Range/Units 16:00 WBC 9.6 (3.8-10.6) Thou/mm3 Hgb 12.0 L (13.5-16.0) g/dL Hct 35.4 L (41.0-53.0) % Plt Count 237 (140-440) Thou/mm3 BMP 06/24/24 16:00 Sodium 139 Potassium 4.3 Chloride 107 Carbon Dioxide 24.6 BUN 16 Creatinine 1.1 Glucose 105 Calcium 9.0 Cardiac Enzymes 06/24/24 Range/Units 16:00 Troponin I 0.021 (0.0-0.045) ng/mL Liver Function 06/24/24 Range/Units 16:00 Total Bilirubin 0.5 (0.3-1.2) mg/dL AST 18 (0-34) U/L ALT 16 (10-49) U/L Alkaline Phosphatase 81 (46-116) U/L Albumin 3.7 (3.4-4.8) gm/dL Quality Measures Quality Measures VTE prophylaxis Advance care planning discussed with:: patient Medications Home Medications and Allergies Home Medications ?Medication ?Instructions ?Recorded ?Confirmed ?Type latanoprost 0.005 % eye drops 1 drp Both eyes QPM 11/2105/23/24 History tamsulosin 0.4 mg capsule 0.4 mg PO QDAY 12/13/2105/16 History memantine 5 mg tablet 5 mg PO BID 05/23/24 5 History Allergies Allergy/AdvReac Type Severity Reaction Status Date / Time codeine Allergy Hives Verified 12/14/22 08:21 Visit Medications Ondansetron HCl (Ondansetron Inj 2 Mg/Ml Inj 2 Ml) 4 mg IV Q6H PRN; Protocol PRN Reason: NAUSEA OR VOMITING Stop: 07/24/24 17:24 Discontinued Medications Dopamine HCl/Dextrose (Intropin In D5w Ivpb) 400 mg in 250 mls @ 7.952 mls/hr IV .Q24H [facility]LAIR Stop: 07/24/24 17:26 Assessment & Plan Plan 88 y/o M with PMHx significant for dementia, BPH, seizures, glaucoma presenting with chief complaint of intermittent chest pain x 2 hours, admitted for third- degree heart block. #Third-degree heart block with bradycardia Patient presented with chief complaint of chest pain, intermittent. Troponin negative, but EKG showed complete heart block with bradycardia. Cardiology was consulted, Dr. Awan recommended admission to telemetry, plan to place pacemaker tomorrow. Patient hemodynamically stable at this time. Endorses mild shortness of breath but saturating well. Considered dopamine drip, will not use due to elevated blood pressure, 175/62. -Telemetry -Plan for pacemaker tomorrow -N.p.o. after midnight -Cardiology consulted, appreciate recommendations -Recheck troponin in 6 hours. #Seizures, patient history Patient was diagnosed with new onset seizures 1 month ago following a fall with EEG indicating seizure-like activity. Patient be discharged with Depakote, has not had seizure since. -Depakote 250 mg p.o. twice daily #Dementia, patient history Patient has history of dementia. A&O x 2 currently at patient's baseline. -Delirium precautions -Avoid sedatives -Maintain good day night cycle -Encourage family #BPH, patient history #Glaucoma, patient history Patient is history as stated. Med rec's pending. -Consider resuming following med rec's DVT prophylaxis: SCDs GI prophylaxis: None Diet: Cardiac, n.p.o. after midnight Lines: Peripheral IV Code status: Limited code: No compressions or intubation, defibrillation acceptable Plan of care discussed with senior resident Dr. Mederos PGY?[address] Iqbal. Kei Slater MD PGY?1 Attending Provider Attestation/Addendum Anna, Faith Iqbal, DO, attest that I was physically present for the cuellar portions of the service and evaluated the patient with the resident and I reviewed and discussed the case with the resident and agree with the resident's findings and plans of care as documented above Patient is an 88-year-old male with past medical history of seizures, dementia and BPH who presented with generalized weakness, cough and intermittent chest pain that began yesterday. Grandson is at bedside to provide some history. Patient appears to be unsure about why he is in the hospital. He had endorsed some chest pain to resident physician, but states that he has a cough and some shortness of breath here. He denies any recent sick contacts otherwise. Upon evaluation in the ED, patient is noted to be bradycardic in the 40s. EKG shows evidence of a high-grade AV block. Per grandson, patient does occasionally have falls at home, but no syncopal episodes or loss of consciousness. Patient appears to be at his baseline mental status. Cardiology was consulted from ED and plans on placing a permanent pacemaker in the morning due to high-grade AV block. Blood pressure has been elevated with systolic in the 170s to 180s. Patient is in no acute distress and on room air. Lungs are clear to auscultation bilaterally. He has noted to be bradycardic, no rubs or murmurs noted on cardiac exam. Will admit to telemetry for further workup and medical management of high-grade AV block. No need for any drips at this time as blood pressure is elevated despite bradycardia. However, ICU team is made aware in the event that patient becomes bradycardic and may need a dobutamine drip. Will admit to telemetry. Hold off on any QTc prolonging agents. Will place n.p.o. after midnight. Chest x-ray does show concern for possible significant bilateral pneumonia. However, patient is in no respiratory distress and saturating in the 90s on room air.
[2024-06-24] MEDS: guaiFENesin SYRUP 200 MG/10 ML UDC 100 MG PO (22:37)
[2024-06-24] MEDS: VALPROIC ACID SYRUP 250 MG/5 ML UDC PO (22:37)
[2024-06-25] VITALS (14 sets, daily range): BP systolic 112–169; BP diastolic 47–94; PULSE 39–98; RESP 12–31; TEMP 36.6–37.4; O2SAT 90–98
[2024-06-25] MEDS: cefTRIAXone 1,000 MG in SODIUM CHLORIDE 0.9% (Popper) 50 ML 100 MG IV (00:58)
--- NOTE | 2024-06-25 04:14 | PC.RT ---
assess pt at 02:53, on RA spo2 93% RR16, Hr 40, auscultated italia bs, no distress noted, pt able to expectorate sputum, expectorated small yellow thin.
[2024-06-25 05:12] LABS: Basophils % (Auto) 0 % (0-2.5); Eosinophils # (Auto) 0.1 Thou/mm3 (0.0-0.5); Eosinophils % (Auto) 1 % (0-10); Hemoglobin 11.7 g/dL (13.5-16.0); Immature Granulocytes % (Auto) 0 % (0-0); Immature Granulocytes Auto 0.03 Thou/mm3 (0.00-0.00); Lymphocytes # (Auto) 0.9 Thou/mm3 (1.0-4.8); Lymphocytes % (Auto) 9 % (10-50); Mean Corpuscular HGB Conc 34.4 g/dl (31.0-37.0); Mean Corpuscular Hemoglobin 31.7 pg (25.0-35.0); Mean Corpuscular Volume 92 fL (80-100); Monocytes % (Auto) 9 % (0-12); Neutrophils # (Auto) 8.2 Thou/mm3 (1.8-7.7); Neutrophils % (Auto) 80 % (37-80); Nucleated Red Blood Cell % 0 /100 WBC (0); Platelet Count 229 Thou/mm3 (140-440); RDW Standard Deviation 41.9 fL (35.1-43.9); Red Blood Count 3.69 Miln/mm3 (4.50-5.90); White Blood Count 10.2 Thou/mm3 (3.8-10.6)
[2024-06-25 05:34] LABS: INR 1.2 (0.9-1.3); Partial Thromboplastin Time 29.9 Seconds (22.0-36.0); Prothrombin Time 13.2 Seconds (9.0-12.2)
[2024-06-25 05:47] LABS: Alanine Aminotransferase 15 U/L (10-49); Albumin, Serum 3.5 gm/dL (3.4-4.8); Albumin/Globulin Ratio 1.7 (1.2-2.2); Alkaline Phosphatase 74 U/L (46-116); Anion Gap 10 (7-16); Aspartate Amino Transferase 17 U/L (0-34); BUN/Creatinine Ratio 17 Ratio (12-20); Bilirubin,Total 0.6 mg/dL (0.3-1.2); Blood Urea Nitrogen 15 mg/dL (9-23); Calcium 8.8 mg/dL (8.3-10.6); Calcium (Corrected) 9.2 mg/dL (8.5-10.1); Carbon Dioxide 24.5 mMol/L (20.0-31.0); Cardiac Risk Estimate 3.5 RATIO (4.0-6.7); Chloride 106 mMol/L (98-107); Cholesterol 127 mg/dL (132-200); Creatinine (Component) 0.9 mg/dL (0.6-1.3); Estimated Creatinine Clearance 67.8 mL/min (>60); Globulin 2.1 gm/dL (2.3-3.5); Glucose 101 mg/dL (74-106); HDL Cholesterol 36 mg/dL (40-60); LDL Cholesterol,Calculated 73 mg/dL (0-130); Magnesium 2.1 mg/dL (1.6-2.6); Osmolality,Calculated 280 (275-295); Phosphorous 3.1 mg/dL (2.4-5.1); Potassium 4.2 mMol/L (3.4-5.1); Sodium 140 mMol/L (136-145); Total Protein 5.6 gm/dL (5.7-8.2); Triglycerides 88 mg/dL (30-150); eGFR > 60 See Note
[2024-06-25 06:01] LABS: Troponin I 0.224 ng/mL (0.0-0.045)
--- NOTE | 2024-06-25 08:07 | PC.SS ---
Update: Patient at production laborer obtaining pacemaker.
--- NOTE | 2024-06-25 08:34 | PD.CARDCATH ---
Cardiac Cath Procedure Procedure Narrative Date of the procedure 06/25/2024 TITLE OF THE PROCEDURE: PERMANENT PACEMAKER PLACEMENT Indication for the procedure Is an 88-year-old gentleman with dementia Complains of atypical chest pain dizziness fatigue tiredness EKG in the emergency room revealed complete heart block third-degree Heart rate was 39 bpm Therefore permanent pacemaker was recommended Procedure Procedure was done in the OR after appropriate timeout and under continuous electrocardiographic monitoring and intermittent blood pressure monitoring and after instituting conscious sedation we started the procedure. Left subclavian region was prepared in a sterile fashion and sterile gowns were applied. 1% lidocaine anesthesia was used locally. Left subclavian venous access was obtained. Modified Seldinger technique was used for this. After the blood return was confirmed guidewire was placed into the left subclavian vein. We proceeded with making a pacemaker pocket. Incision was made over the left subclavian region and hemostasis was achieved. By gentle dissection pacemaker pocket was fashioned out of the prepectoralis fascia. Subsequently venous sheath was placed over the guidewire and a second guidewire was also placed through the venous sheath. Subsequently a new venous sheet was gently passed over one of the guidewires and through the venous sheet ventricular lead was gently advanced under fluoroscopic guidance. Ventricular lead was positioned at the apex of the right ventricle under fluoroscopic guidance and the lead was gently screwed into the myocardium. Subsequently we proceeded with lead testing. After the ventricular lead was placed, through a second venous sheath atrial lead was advanced under fluoroscopic guidance. Subsequently the atrial lead was positioned into the right atrial appendix and gently screwed in. After that atrial lead was tested. After both leads were tested and they were connected to the generator. The generator was placed in the pocket and pocket was flushed with antibiotic solution. Subsequently further hemostasis was achieved and pocket was inspected carefully and removed all gauzes. The generator was sutured to the prepectoralis fascia with silk. We started to proceed with suturing of the pocket. 2-0 Vicryl was used to suture the pocket and Skin was secured with Dermabond TESTING PARAMETERS ARE: Atrial lead: Biotronik serial #[id number] P-wave: 2.5 mV Threshold: 0.7 V at 0.4 ms Impedance: 487 ohms Ventricular lead Biotronik serial #[id number] R-wave: 11.9 mV Threshold: 1 V at 0.4 ms Impedance: 760 ohms After the procedure was done, the final position of the leads and pacemaker was confirmed by fluoroscopy, and patient was taken to the recovery on stable conditions.
--- NOTE | 2024-06-25 08:44 | ESPR_ITS ---
Documentation for date of: 06/25/24 Subjective Subjective Interval history: Status post permanent pacemaker placement Exam Vital Signs Temp Pulse Resp BP Pulse Ox O2 Del Method 99.1 F 41 L 14 161/94 H 93 L Room Air 06/25/24 07:04 06/25/24 07:04 06/25/24 07:04 06/25/24 07:04 06/25/24 07:04 06/25/24 07:04 Routine HEENT Exam Head: Present normocephalic and atraumatic Eye: Present EOMI and PERRL ENT: Present mucous membranes moist Routine Neck Exam Neck: Present supple and trachea midline Routine Respiratory Exam Respiratory: Present chest non-tender, lungs clear, normal breath sounds and no resp distress Routine Cardiovascular Exam Cardiovascular: Present RRR Routine Abdominal Exam Abdominal: Present soft and normoactive bowel sounds Routine Extremities Exam Extremities: Present full ROM Routine Skin Exam Skin: Present intact, dry and warm Routine Neurological Exam Neurological: Present alert, oriented X3 and CN II-XII intact Routine Psychiatric Exam Psychiatric: Present normal affect and normal thought process Objective Labs 06/25/24 04:38 06/25/24 04:38 Labs: Laboratory Results - last 24 hr 06/24/24 06/24/24 06/25/24 16:00 22:21 04:38 WBC 9.6 10.2 RBC 3.80 L 3.69 L Hgb 12.0 L 11.7 L Hct 35.4 L 34.0 L MCV 93 92 MCH 31.6 31.7 MCHC 33.9 34.4 RDW Std Deviation 42.8 41.9 Plt Count 237 229 Neut % (Auto) 74 80 Lymph % (Auto) 14 9 L [place] % (Auto) 9 9 Eos % (Auto) 2 1 Baso % (Auto) 1 0 Neut # (Auto) 7.1 8.2 H Lymph # (Auto) 1.3 0.9 L [place] # (Auto) 0.9 H 1.0 H Eos # (Auto) 0.2 0.1 Baso # (Auto) 0.1 0.0 Immature Gran # (Auto) 0.02 H 0.03 H Absolute Nucleated RBC 0.00 0.00 Immature Gran % 0 0 Nucleated RBC % 0 0 PT 13.0 H 13.2 H INR 1.2 1.2 APTT 29.9 29.9 Sodium 139 140 Potassium 4.3 4.2 Chloride 107 106 Carbon Dioxide 24.6 24.5 Anion Gap 7 10 BUN 16 15 Creatinine 1.1 0.9 Estim Creat Clear Calc 55.5 L 67.8 eGFR > 60 > 60 BUN/Creatinine Ratio 15 17 Glucose 105 101 Calculated Osmolality 278 280 Calcium 9.0 8.8 Corrected Calcium 9.2 9.2 Phosphorus 3.1 Magnesium 2.2 2.1 Total Bilirubin 0.5 0.6 AST 18 17 ALT 16 15 Alkaline Phosphatase 81 74 Troponin I 0.021 0.140 H* 0.224 H* B-Natriuretic Peptide 906 H* Total Protein 6.0 5.6 L Albumin 3.7 3.5 Globulin 2.3 2.1 L Albumin/Globulin Ratio 1.6 1.7 Triglycerides 88 Cholesterol 127 L LDL Cholesterol, Calc 73 HDL Cholesterol 36 L Cholesterol/HDL Ratio 3.5 L TSH 3.54 Assessment & Plan A&P Narrative Status post permanent pacemaker placement Continue current medical management Time Spent With Patient Time: Total time spent is greater than 50% in coordination of care (as documented) at patient's floor/unit and/or counseling patient:
--- NOTE | 2024-06-25 08:46 | XR_ITS ---
Examination: AP chest single view Technique one AP upright portable chest single view Exam date and time: June 25, 2024 0917 hours INDICATIONS: Postop pacemaker insertion FINDINGS: Transvenous dual-chamber bipolar cardiac leads satisfactory position No pneumothorax Extensive bilateral edema and/or pneumonia IMPRESSION: Cardiac leads satisfactory position
--- NOTE | 2024-06-25 09:56 | PC.PT ---
PT rodger held today. Patient had permanent pacemaker placed 06/25/24 in the A.M. PT will evaluate the patient at a later time to allow for adequate recovery from the procedure.
--- NOTE | 2024-06-25 10:13 | PC.NURSE ---
consulted dr storey regarding post procedure chest xray per MD, leads in good position, no pneumothorax
--- NOTE | 2024-06-25 10:23 | PC.NURSE ---
report given to Day MCNULTY
--- NOTE | 2024-06-25 11:36 | PC.SS ---
COMMUNITY SERVICE SPECIALIST conducted bedside contact with the patient conduct initial assessment and to discuss discharge planning.? At bedside with patient was spouse, Sammie Gomes .? Patient resides at home with spouse.? Patient is a [employer] aligned with [employer] Patient possesses history of dementia.? Patient utilizes a walker to assist with ambulation.? Patient does not utilize home oxygen.? Patient currently on 3L oxygen, nasal cannula.? Patient requires assistance with the completion of ADL?s.? Patient?s care provider is daughter, Janice Gomes .? Care provider services provided by the [facility].? The patient?[facility] Patient does not possess any specialty providers.? Discharge plan for the patient is short term SNF placement.? [facility] SNF is [facility].? No further intervention required at this time, delinquency prevention social worker will be available to address any further concerns.? Next of Kin: Sammie Arreolandon D/C Plan: SNF
--- NOTE | 2024-06-25 13:14 | PC.SS ---
PASSR completed. ?Level II Mental Health Evaluation referral is not required due to a Categorical Condition. On line closure pending.
[2024-06-25 13:27] LABS: Troponin I 0.227 ng/mL (0.0-0.045)
[2024-06-25] MEDS: ceFAZolin/D5W 1 GM IVPB 1 GM/50 ML BAG IV ×3 (13:38→23:27)
--- NOTE | 2024-06-25 13:42 | PC.SS ---
SNF referral submitted on [facility]. Responses are pending.
--- NOTE | 2024-06-25 14:23 | PC.SS ---
Rounding Note: Pace maker placed this morning. Swallow evaluation is pending. Possible d/c tomorrow.
--- NOTE | 2024-06-25 15:30 | ESPR_ITS ---
<Statement entered by Nyla Mederos MD - 06/26/24 17:05> Patient seen and examined at bedside. No acute overnight events reported. Patient seen after receiving pacemaker today. Patient was sound asleep unable to be woken up from sternal rub most likely from anesthetic effect. Family at bedside, and all questions asked and answered. Patient's heart rate is currently well above 60 on quality assurance monitor body. Will continue with IV antibiotics for concern for right middle lobe pneumonia and recent pacemaker insertion. Patient seen on minimal O2 requirements, and not tachypneic. Anticipate discharge within 24 to 48 hours status post procedure. I discussed with and supervised the internet systems administrator physician who took care of this patient. I personally saw and examined the patient and discussed the assessment and plan with the entire medicine team, including my attending Dr. Iqbal, I agree with most of the assessment and plan as documented below Nyla Mederos M.D. PGY-2 Disclaimer: Despite multiple revisions, due to the dictation software being used, the document bellow may not be free of grammatical errors including phonetic/typographic errors. However, this does not deter from our commitment to providing health care in the patient's best interest in mind. Documentation for date of: 06/25/24 Subjective Subjective Interval history: No overnight events. Patient seen and examined at bedside. Patient received pacemaker plantation this morning, was well-tolerated. Heart rate regular rate and rhythm now. Patient complains of slight cough, denies shortness of breath, chest pain, fever, chills. Patient is confused, likely hospital induced delirium. One-time dose Seroquel tonight for sleep. Change antibiotics to doxycyclin and cefazolin. Exam Vital Signs Temp Pulse Resp BP Pulse Ox O2 Del Method O2 Flow Rate 98.5 F 66 26 H 149/80 H 95 Nasal Cannula 3 06/25/24 12:06/25/24 12:06/25/24 12:06/25/24 12:06/25/24 12:06/25/24 12:06/25/24 12:00 Narrative Exam PE: Gen: Well-developed and well-nourished. Thin. Elderly. HEENT: NCAT, PERRLA, EOMI, MMM, anicteric conjunctivae. CVS: normal S1 and S2. No M/R/G. RRR. Pacemaker. Resp: Coarse lung sounds diffusely, worse on right side. Abd: soft, non-tender, non-distended. MSK: Good ROM in BUE & BLE. No rash. 1+ pitting edema BLE. Neuro: CN II-XII grossly intact. Strength 5/5 in BUE & BLE. Alert and oriented x 1, delirious. Objective Labs 06/26/24 04:32 06/26/24 04:32 Labs: Laboratory Results - last 24 hr 06/24/24 06/24/24 06/25/24 16:00 22:21 04:38 WBC 9.6 10.2 RBC 3.80 L 3.69 L Hgb 12.0 L 11.7 L Hct 35.4 L 34.0 L MCV 93 92 MCH 31.6 31.7 MCHC 33.9 34.4 RDW Std Deviation 42.8 41.9 Plt Count 237 229 Neut % (Auto) 74 80 Lymph % (Auto) 14 9 L [place] % (Auto) 9 9 Eos % (Auto) 2 1 Baso % (Auto) 1 0 Neut # (Auto) 7.1 8.2 H Lymph # (Auto) 1.3 0.9 L [place] # (Auto) 0.9 H 1.0 H Eos # (Auto) 0.2 0.1 Baso # (Auto) 0.1 0.0 Immature Gran # (Auto) 0.02 H 0.03 H Absolute Nucleated RBC 0.00 0.00 Immature Gran % 0 0 Nucleated RBC % 0 0 PT 13.0 H 13.2 H INR 1.2 1.2 APTT 29.9 29.9 Sodium 139 140 Potassium 4.3 4.2 Chloride 107 106 Carbon Dioxide 24.6 24.5 Anion Gap 7 10 BUN 16 15 Creatinine 1.1 0.9 Estim Creat Clear Calc 55.5 L 67.8 eGFR > 60 > 60 BUN/Creatinine Ratio 15 17 Glucose 105 101 Calculated Osmolality 278 280 Calcium 9.0 8.8 Corrected Calcium 9.2 9.2 Phosphorus 3.1 Magnesium 2.2 2.1 Total Bilirubin 0.5 0.6 AST 18 17 ALT 16 15 Alkaline Phosphatase 81 74 Troponin I 0.021 0.140 H* 0.224 H* B-Natriuretic Peptide 906 H* Total Protein 6.0 5.6 L Albumin 3.7 3.5 Globulin 2.3 2.1 L Albumin/Globulin Ratio 1.6 1.7 Triglycerides 88 Cholesterol 127 L LDL Cholesterol, Calc 73 HDL Cholesterol 36 L Cholesterol/HDL Ratio 3.5 L TSH 3.54 06/25/24 12:05 WBC RBC Hgb Hct MCV MCH MCHC RDW Std Deviation Plt Count Neut % (Auto) Lymph % (Auto) [place] % (Auto) Eos % (Auto) Baso % (Auto) Neut # (Auto) Lymph # (Auto) [place] # (Auto) Eos # (Auto) Baso # (Auto) Immature Gran # (Auto) Absolute Nucleated RBC Immature Gran % Nucleated RBC % PT INR APTT Sodium Potassium Chloride Carbon Dioxide Anion Gap BUN Creatinine Estim Creat Clear Calc eGFR BUN/Creatinine Ratio Glucose Calculated Osmolality Calcium Corrected Calcium Phosphorus Magnesium Total Bilirubin AST ALT Alkaline Phosphatase Troponin I 0.227 H* B-Natriuretic Peptide Total Protein Albumin Globulin Albumin/Globulin Ratio Triglycerides Cholesterol LDL Cholesterol, Calc HDL Cholesterol Cholesterol/HDL Ratio TSH Quality Measures Quality Measures VTE prophylaxis Advance care planning discussed with:: patient Assessment & Plan Assessment Current Active Medications: Generic Name Dose Route Start Last Admin Trade Name Freq PRN Reason Stop Dose Admin Atropine Sulfate 1 mg 06/24/24 18:33 Atropine Sulf Inj 0.1 Mg/Ml Syr 10 Ml IV Q3MIN PRN BRADYCARDIA HR LESS THAN 30 Doxycycline Hyclate 100 mg 06/25/24 21:00 Doxycycline 100 Mg Tablet PO 07/02/24 20:59 BID [facility] Guaifenesin 100 mg 06/24/24 22:31 06/24/24 22:37 Guaifenesin Syrup 200 Mg/10 Ml Udc PO 07/24/24 22:30 100 mg QID PRN Administration COUGH Protocol Cefazolin Sodium/Dextrose 1 gm in 50 mls @ 100 mls/hr 06/25/24 14:00 06/25/24 13:38 Ancef Ivpb IV 06/26/24 00:29 100 mls/hr Q6HR BLAIR Administration Quetiapine Fumarate 12.5 mg 06/25/24 21:00 Quetiapine Fumarate 25 Mg Tablet PO 06/25/24 21:01 X1 ONE Valproic Acid 125 mg 06/26/24 09:00 Valproic Acid Syrup 250 Mg/5 Ml Udc PO 07/26/24 08:59 BID BLAIR Plan 88 y/o M with PMHx significant for dementia, BPH, seizures, glaucoma presenting with chief complaint of intermittent chest pain x 2 hours, admitted for third- degree heart block. #Third-degree heart block with bradycardia s/p pacemaker implantation Patient presented with chief complaint of chest pain, intermittent. Troponin negative, but EKG showed complete heart block with bradycardia. Cardiology was consulted, Dr. Awan recommended admission to telemetry, plan to place pacemaker tomorrow. Patient hemodynamically stable at this time. Endorses mild shortness of breath but saturating well. Considered dopamine drip, will not use due to elevated blood pressure, 175/62. Patient pacemaker implanted, well-tolerated. Patient has paced rhythm, regular rate and rhythm now. Troponin only mildly elevated. -Cardiac diet -Cardiology consulted, appreciate recommendations -Cefazolin 1 g IV every 6 hours x 3 bags -Telemetry #Community acquired pneumonia On initial chest x-ray patient had right-sided infiltrates. At time, patient denies shortness of breath, cough, fever, chills. Patient had no WBC elevation or other signs of infection so was not treated. Overnight, patient developed cough, complains of mild cough without shortness of breath. Antibiotics initiated. Remains afebrile, no leukocytosis. -Doxycycline 100 mg p.o. twice daily -Robitussin 100 mg p.o. 4 times daily as needed for cough #Seizures, patient history Patient was diagnosed with new onset seizures 1 month ago following a fall with EEG indicating seizure-like activity. Patient be discharged with Depakote, has not had seizure since. -Depakote 125 mg p.o. twice daily #Dementia, patient history #Hospital induced delirium Patient has history of dementia. A&O x 2 currently at patient's baseline. Patient hide mildly increased confusion following procedure, likely hospital induced delirium. -Delirium precautions -Avoid sedatives -Maintain good day night cycle -Encourage family visits -Seroquel 12.5 mg x 1 at 9 PM #BPH, patient history #Glaucoma, patient history Patient is history as stated. Med rec's pending. -Consider resuming following med rec's DVT prophylaxis: SCDs GI prophylaxis: None Diet: Cardiac Lines: Peripheral IV Code status: Limited code: No compressions or intubation, defibrillation acceptable Plan of care discussed with senior resident Dr. Mederos PGY?[address] Iqbal. Kei Slater MD PGY?1 Attending Provider Attestation/Addendum I, Faith Iqbal, DO, attest that I was physically present for the cuellar portions of the service and evaluated the patient with the resident and I reviewed and discussed the case with the resident and agree with the resident's findings and plans of care as documented above Seen and eval this afternoon after pacemaker placement. Patient was confused following procedure and states that he is at home. Patient is anxious to get out of bed. He is currently requiring a one-to-one sitter. Encourage patient to keep his left arm in splint. Will place patient on doxycycline for IV antibiotics due to concern for bibasilar pneumonia. However, patient remains on room air at this time and has no respiratory symptoms. Patient is on cefazolin for post pacemaker placement prophylaxis.
[2024-06-25] MEDS: guaiFENesin SYRUP 200 MG/10 ML UDC 100 MG PO (15:37)
[2024-06-25 15:51] LABS: Collection Type, Urine Clean Catch; Squamous Epithelial Cell,Urine 0 /hpf (0-5)
[2024-06-25 15:58] LABS: Bilirubin,Urine Negative (Negative); Blood,Urine Negative (Negative); Clarity,Urine Clear (Clear/Hazy); Color,Urine Lt-Yellow (Lt Yel-Yel); Culture Indicated,Urine Not Indicated; Glucose, Urine Negative (Negative); Ketones,Urine 1+ (Negative); Leukocyte Esterase,Urine Negative (Negative); Nitrite,Urine Negative (Negative); PH,Urine 6.5 (5.0-7.0); Protein,Urine Negative (Neg - Trace); RBC,Urine 1 /hpf (0-3); Specific Gravity,Urine 1.012 (1.001-1.035); Urobilinogen,Urine Negative mg/dL (0.0-1.0); WBC,Urine 1 /hpf (0-5)
--- NOTE | 2024-06-25 16:39 | PC.NURSE ---
patient's ricky sounds very coarse, patient s tachypneic o2 @3liters/nc ith o2sats 92, called dr vick and made aware, no ne order received.
[2024-06-25] MEDS: DOXYCYCLINE 100 MG TABLET PO (20:36)
[2024-06-25] MEDS: QUEtiapine FUMARATE 25 MG TABLET 12.5 MG PO (20:37)
--- NOTE | 2024-06-25 21:19 | PC.NURSE ---
Notified hospitalist regarding patients breathing sound. Patient breath sound gargled (course). Nurse notified MD.
--- NOTE | 2024-06-25 23:02 | PC.NURSE ---
S[place]'s nurse (Pasquale) is currently sitting in room with patient (1:1) due to the patient trying to get out of bed. For the patient's safety the nurse decided to sit with the patient. When the nurse was with the patient the patient no longer tried to get out of bed. Patient also has an avesure in room. Patient is redirectable and is no longer trying to get out of bed.
[2024-06-26] VITALS (8 sets, daily range): BP systolic 120–140; BP diastolic 74–85; PULSE 64–118; RESP 14–39; TEMP 36.1–37.2; O2SAT 91–98
[2024-06-26 05:24] LABS: Basophils % (Auto) 0 % (0-2.5); Eosinophils # (Auto) 0.1 Thou/mm3 (0.0-0.5); Eosinophils % (Auto) 1 % (0-10); Hematocrit 36.2 % (41.0-53.0); Hemoglobin 12.5 g/dL (13.5-16.0); Immature Granulocytes % (Auto) 0 % (0-0); Immature Granulocytes Auto 0.02 Thou/mm3 (0.00-0.00); Lymphocytes # (Auto) 0.9 Thou/mm3 (1.0-4.8); Lymphocytes % (Auto) 9 % (10-50); Mean Corpuscular HGB Conc 34.5 g/dl (31.0-37.0); Mean Corpuscular Hemoglobin 31.5 pg (25.0-35.0); Mean Corpuscular Volume 91 fL (80-100); Monocytes # (Auto) 1.1 Thou/mm3 (0.0-0.8); Monocytes % (Auto) 11 % (0-12); Neutrophils % (Auto) 79 % (37-80); Nucleated Red Blood Cell % 0 /100 WBC (0); Platelet Count 306 Thou/mm3 (140-440); RDW Standard Deviation 41.3 fL (35.1-43.9); Red Blood Count 3.97 Miln/mm3 (4.50-5.90)
[2024-06-26 05:50] LABS: Alanine Aminotransferase 13 U/L (10-49); Albumin, Serum 3.3 gm/dL (3.4-4.8); Albumin/Globulin Ratio 1.4 (1.2-2.2); Alkaline Phosphatase 74 U/L (46-116); Anion Gap 8 (7-16); Aspartate Amino Transferase 34 U/L (0-34); BUN/Creatinine Ratio 17 Ratio (12-20); Bilirubin,Total 0.7 mg/dL (0.3-1.2); Blood Urea Nitrogen 15 mg/dL (9-23); Calcium 8.8 mg/dL (8.3-10.6); Calcium (Corrected) 9.4 mg/dL (8.5-10.1); Carbon Dioxide 25.4 mMol/L (20.0-31.0); Chloride 105 mMol/L (98-107); Creatinine (Component) 0.9 mg/dL (0.6-1.3); Globulin 2.4 gm/dL (2.3-3.5); Glucose 99 mg/dL (74-106); Magnesium 2.1 mg/dL (1.6-2.6); Osmolality,Calculated 276 (275-295); Phosphorous 3.5 mg/dL (2.4-5.1); Potassium 4.2 mMol/L (3.4-5.1); Sodium 138 mMol/L (136-145); Total Protein 5.7 gm/dL (5.7-8.2); eGFR > 60 See Note
[2024-06-26] MEDS: DOXYCYCLINE 100 MG TABLET PO ×2 (08:59→20:38)
[2024-06-26] MEDS: guaiFENesin SYRUP 200 MG/10 ML UDC 100 MG PO ×4 (09:00→20:40)
[2024-06-26] MEDS: VALPROIC ACID SYRUP 250 MG/5 ML UDC 125 MG PO ×2 (09:00→20:38)
--- NOTE | 2024-06-26 09:28 | ECHO_ITS ---
Transthoracic Echo Report Ht (in): 75 Wt (lb): 184 Exam Location: Echo Lab Status: Inpatient Turner Splitter Machine Operator: sandy rose^^^^ Indications: Procedure Performed: BP: 120 / 75 HR: 96 Technical Quality: Technically difficult study MEASUREMENTS (Male / Female) Normal Values 2D ECHO LV Diastolic Diameter PLAX 5.5 cm 4.2 - 5.9 / 3.9 - 5.3 cm LV Systolic Diameter PLAX 4.4 cm IVS Diastolic Thickness 0.7 cm 0.6 - 1.0 / 0.6 - 0.9 cm LVPW Diastolic Thickness 0.7 cm 0.6 - 1.0 / 0.6 - 0.9 cm LV Relative Wall Thickness 0.3 LVOT Diameter 1.6 cm Aortic Root Diameter 2.3 cm LA Systolic Diameter LX 4.1 cm 3.0 - 4.0 / 2.7 - 3.8 cm LV Ejection Fraction MOD BP 58.5 % >= 55 % LV Cardiac Index MOD BP 2862.5 cm?/min?m? LV Ejection Fraction MOD 4C 60.3 % LV Cardiac Index MOD 4C 2867.1 cm?/min?m? LV Ejection Fraction 4C AL 61.1 % LV Cardiac Index 4C AL 3083.4 cm?/min?m? LV Ejection Fraction MOD 2C 57.7 % LV Cardiac Index MOD 2C 2798.5 cm?/min?m? LV Ejection Fraction 2C AL 58.3 % LV Cardiac Index 2C AL 2900.1 cm?/min?m? LA Volume Index 53.3 cm?/m? 16 - 28 cm?/m? DOPPLER AV Peak Velocity 146.7 cm/s AV Peak Gradient 8.6 mmHg AV Mean Gradient 6.0 mmHg AV Velocity Time Integral 25.9 cm LVOT Peak Velocity 115.0 cm/s LVOT Peak Gradient 5.3 mmHg LVOT Velocity Time Integral 20.8 cm LVOT Cardiac Index 1912.3 cm?/min?m? AV Area Cont Eq vti 1.6 cm? AV Area Cont Eq pk 1.6 cm? MV Peak Velocity 121.0 cm/s MV Peak Gradient 5.9 mmHg MV Mean Velocity 80.8 cm/s MV Mean Gradient 3.0 mmHg MV Area PHT 4.8 cm? MR Peak Velocity 195.0 cm/s MR Peak Gradient 15.2 mmHg Mitral E Point Velocity 61.1 cm/s Mitral A Point Velocity 100.0 cm/s Mitral E to A Ratio 0.6 LV E' Lateral Velocity 12.1 cm/s Mitral E to LV E' Lateral Ratio 5.0 LV E' Septal Velocity 8.7 cm/s Mitral E to LV E' Septal Ratio 7.1 TR Peak Velocity 288.0 cm/s TR Peak Gradient 33.2 mmHg PV Peak Velocity 96.6 cm/s PV Peak Gradient 3.7 mmHg RVOT Peak Velocity 48.0 cm/s FINDINGS Left Ventricle The left ventricular ejection fraction is ,mildly reduced ; approximte EF 40- 45%. The left ventricular cavity size is mildly increased. There is grade III diastolic dysfunction of the left ventricle (restrictive filling pattern). Right Ventricle The right ventricle is normal in size and systolic function. The estimated right ventricular systolic pressure, 38 mmHg. Left Atrium Moderately increased left atrial volume 53.3 mL/m?. Right Atrium The right atrial cavity size is mildly increased. Atrial Septum The interatrial septum appears normal with no evidence of a shunt. Aorta The aorta is normal by two-dimensional, color flow and Doppler interrogation. Mitral Valve [id number] mitral regurgitation. Moderate mitral annular calcification. Moderate thickening of the mitral valve leaflets. Aortic Valve Mild thickening of the aortic valve leaflets. Aortic valve sclerosis. Tricuspid Valve There is mild tricuspid valve regurgitation. Pulmonic Valve Trivial pulmonic valve regurgitation. Vessels The pulmonary artery appears normal. The inferior vena cava pulmonary and hepatic veins appear normal. Pericardium The pericardium is normal by two-dimensional imaging. There is no significant pericardial effusion. CONCLUSIONS indication: Pleural edema LV appears slightly dilated with EF 40-45%. Diastolic Dysfunction III is present. RV appears normal with RVSP 38 mmHg. LA is moderatley dilated. RA is mildly dilated. MV has mild-mod MR & MAC. AOV is sclerotic. TV has mild TR. Imani Awan (Electronically Signed) Final Date: 27 June 2024 13:31
[2024-06-26] MEDS: POLYETHYLENE GLYCOL 17 GM PACKET PO (09:41)
[2024-06-26] MEDS: FUROSEMIDE INJ 10 MG/ML 4ML VIAL 40 MG IVP (09:41)
--- NOTE | 2024-06-26 09:50 | EKG_ITS ---
[facility] Test Date: 2024-06-26 Pat Name: BERYL MCLAIN [facility] Gender[facility] Male Statistical Assistant: FELIPE : 1935 Requested By: Kei Bennett Order Number: [id number] Reading MD: Kei Bennett Measurements Intervals [place] Rate: 72 P: 69 [place]: 188 QRS: -62 QRSD: 176 T: 90 QT: 438 QTc: 480 Interpretive Statements ELECTRONIC VENTRICULAR PACEMAKER ABNORMAL RHYTHM ECG Compared to ECG 06/24/2024 15:53:20 Sinus rhythm no longer present /store/S0/[id number]
--- NOTE | 2024-06-26 10:41 | CHAP ---
Patient expressed gratitude for visit and prayer.
[2024-06-26] MEDS: METOPROLOL SUCCINATE XL 25 MG TABCR PO (11:15)
[2024-06-26] MEDS: cefTRIAXone 1,000 MG in SODIUM CHLORIDE 0.9% (Popper) 50 ML 100 MG IV (11:16)
--- NOTE | 2024-06-26 14:43 | ESPR_ITS ---
<Statement entered by Nyla Mederos MD - 06/27/24 16:54> Patient seen and examined at bedside. Overnight, patient started requiring increased oxygen, and seen on 6 L nasal cannula saturating well above 90%. Patient however is not using any accessory muscle use, but is tachypneic. PVCs also seen frequently on telemetry. Cardiology was contacted, and recommended to give IV Lasix and metoprolol. Will continue to monitor on telemetry and resume patient's home memantine. Pending EKG and echocardiogram and wean O2 as tolerated. Will continue with breathing treatments. I discussed with and supervised the audit practice intern physician who took care of this patient. I personally saw and examined the patient and discussed the assessment and plan with the entire medicine team, including my attending Dr. Iqbal, I agree with most of the assessment and plan as documented below Nyla Mederos M.D. PGY-2 Disclaimer: Despite multiple revisions, due to the dictation software being used, the document bellow may not be free of grammatical errors including phonetic/typographic errors. However, this does not deter from our commitment to providing health care in the patient's best interest in mind. Documentation for date of: 06/26/24 Subjective Subjective Interval history: Patient developed acute hypoxic respiratory failure with low saturations, requiring 5 L/min via nasal cannula saturating 92%. Patient seen examined at bedside. Patient resting comfortably, calm. Patient remains disoriented but is cooperative. Patient denies chest pain, nausea, vomiting, fever, chills. Patient does endorse shortness of breath and nonproductive cough. Patient requiring O2 via nasal cannula. Frequent PVCs seen on telemetry. EKG, echo, metoprolol succinate 25 ordered. Lasix 40 IV x 1 given. Resumed home memantine. Exam Vital Signs Temp Pulse Resp BP Pulse Ox O2 Del Method O2 Flow Rate 99.0 F 64 28 H 140/85 H 93 L Nasal Cannula 5 06/26/24 12:06/26/24 12:06/26/24 12:06/26/24 12:06/26/24 12:00 06/26/24 12:06/26/24 12:00 Narrative Exam PE: Gen: Well-developed and well-nourished. Thin. Elderly. HEENT: NCAT, PERRLA, EOMI, MMM, anicteric conjunctivae. CVS: normal S1 and S2. No M/R/G. Regular rhythm, tachycardia. Pacemaker. Resp: Coarse lung sounds diffusely, worse on right side. Bibasilar crackles. Abd: soft, non-tender, non-distended. MSK: Good ROM in BUE & BLE. No rash. Trace pitting edema BLE. Neuro: CN II-XII grossly intact. Strength 5/5 in BUE & BLE. Alert and oriented x 1, delirious. Objective Labs 06/27/24 05:29 06/27/24 05:29 Labs: Laboratory Results - last 24 hr 06/25/24 06/26/24 15:30 04:32 WBC 10.0 RBC 3.97 L Hgb 12.5 L Hct 36.2 L MCV 91 MCH 31.5 MCHC 34.5 RDW Std Deviation 41.3 Plt Count 306 D Neut % (Auto) 79 Lymph % (Auto) 9 L [place] % (Auto) 11 Eos % (Auto) 1 Baso % (Auto) 0 Neut # (Auto) 8.0 H Lymph # (Auto) 0.9 L [place] # (Auto) 1.1 H Eos # (Auto) 0.1 Baso # (Auto) 0.0 Immature Gran # (Auto) 0.02 H Absolute Nucleated RBC 0.00 Immature Gran % 0 Nucleated RBC % 0 Sodium 138 Potassium 4.2 Chloride 105 Carbon Dioxide 25.4 Anion Gap 8 BUN 15 Creatinine 0.9 Estim Creat Clear Calc 67.0 eGFR > 60 BUN/Creatinine Ratio 17 Glucose 99 Calculated Osmolality 276 Calcium 8.8 Corrected Calcium 9.4 Phosphorus 3.5 Magnesium 2.1 Total Bilirubin 0.7 AST 34 ALT 13 Alkaline Phosphatase 74 Total Protein 5.7 Albumin 3.3 L Globulin 2.4 Albumin/Globulin Ratio 1.4 Ur Collection Type Clean Catch Urine Color Lt-Yellow Urine Clarity Clear Urine pH 6.5 Ur Specific [place] 1.012 Urine Protein Negative Urine Glucose (UA) Negative Urine Ketones 1+ A Urine Blood Negative Urine Nitrite Negative Urine Bilirubin Negative Urine Urobilinogen (Auto) Negative Ur Leukocyte Esterase Negative Urine RBC 1 Urine WBC 1 Ur Squamous Epith Cells 0 Urine Bacteria None Ur Culture Indicated? Not Indicated Quality Measures Quality Measures VTE prophylaxis Advance care planning discussed with:: patient Assessment & Plan Assessment Current Active Medications: Generic Name Dose Route Start Last Admin Trade Name Freq PRN Reason Stop Dose Admin Atropine Sulfate 1 mg 06/24/24 18:33 Atropine Sulf Inj 0.1 Mg/Ml Syr 10 Ml IV Q3MIN PRN BRADYCARDIA HR LESS THAN 30 Doxycycline Hyclate 100 mg 06/25/24 21:00 06/26/24 08:59 Doxycycline 100 Mg Tablet PO 07/02/24 20:59 100 mg BID BLAIR Administration Guaifenesin 100 mg 06/26/24 12:30 06/26/24 13:27 Guaifenesin Syrup 200 Mg/10 Ml Udc PO 07/26/24 12:29 100 mg QID BLAIR Administration Protocol Ceftriaxone Sodium 1,000 mg/ 50 mls @ 100 mls/hr 06/26/24 09:51 06/26/24 11:16 Sodium Chloride IV 07/03/24 09:50 100 mls/hr QDAY BLAIR Administration Latanoprost 0 drop 06/26/24 21:00 Latanoprost Op Leyla 0.005% 2.5 Ml Btl BOTH EYES 07/26/24 20:59 QPM BLAIR Memantine 5 mg 06/26/24 21:00 Memantine Hcl 5 Mg Tablet PO 07/26/24 20:59 BID BLAIR Metoprolol Succinate 25 mg 06/26/24 10:00 06/26/24 11:15 Metoprolol Succinate Xl 25 Mg Tabcr PO 07/26/24 09:59 25 mg QDAY BLAIR Administration Valproic Acid 125 mg 06/26/24 09:00 06/26/24 09:00 Valproic Acid Syrup 250 Mg/5 Ml Udc PO 07/26/24 08:59 125 mg BID BLAIR Administration Plan 88 y/o M with PMHx significant for dementia, BPH, seizures, glaucoma presenting with chief complaint of intermittent chest pain x 2 hours, admitted for third- degree heart block. 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 Troponin negative, but EKG showed complete heart block with bradycardia. Cardiology was consulted, Dr. Awan recommended admission to telemetry, plan to place pacemaker tomorrow. Patient hemodynamically stable at this time. Endorses mild shortness of breath but saturating well. Considered dopamine drip, will not use due to elevated blood pressure, 175/62. Patient pacemaker implanted, well-tolerated. Patient has paced rhythm, regular rate and rhythm now. Troponin only mildly elevated. Cefazolin 1 g IV every 6 hours x 3 bags completed. Frequent PVCs seen on telemetry. EKG showed paced rhythm. -Cardiac diet -Cardiology consulted, appreciate recommendations -Telemetry -Echo ordered, follow-up. -Metoprolol succinate 25 mg p.o. daily #Acute hypoxic respiratory failure secondary to #Community acquired pneumonia #Pleural edema possible heart failure On initial chest x-ray patient had right-sided infiltrates. At time, patient denies shortness of breath, cough, fever, chills. Patient had no WBC elevation or other signs of infection so was not treated. Overnight, patient developed cough, complains of mild cough without shortness of breath. Antibiotics initiated. Remains afebrile, no leukocytosis. Patient developed acute hypoxic respiratory failure, requiring 5 L/min of O2 via nasal cannula, saturating 92%. Bibasilar crackles on exam. -Doxycycline 100 mg p.o. twice daily (started 06/25) -Rocephin 1 g IV daily (started 06/26) -Robitussin 100 mg p.o. 4 times daily as needed for cough -Lasix 40 mg IV x 1 given -Lasix 20 mg IV daily #Seizures Patient was diagnosed with new onset seizures 1 month ago following a fall with EEG indicating seizure-like activity. Patient be discharged with Depakote, has not had seizure since. -Depakote 125 mg p.o. twice daily #Dementia #Hospital induced delirium Patient has history of dementia. A&O x 2 currently at patient's baseline. Patient hide mildly increased confusion following procedure, likely hospital induced delirium. -Delirium precautions -Avoid sedatives -Maintain good day night cycle -Encourage family visits -Home medication memantine 5 mg p.o. twice daily started #BPH, patient history #Glaucoma Patient is history as stated. -Latanoprost eyedrops daily -Holding tamsulosin due to recent pacemaker DVT prophylaxis: SCDs GI prophylaxis: None Diet: Cardiac Lines: Peripheral IV Code status: Limited code: No compressions or intubation, defibrillation acceptable Plan of care discussed with senior resident Dr. Mederos PGY?[address] Iqbal. Kei Slater MD PGY?1 Attending Provider Attestation/Addendum I, Faith Iqbal DO, attest that I was physically present for the cuellar portions of the service and evaluated the patient with the resident and I reviewed and discussed the case with the resident and agree with the resident's findings and plans of care as documented above Patient seen and eval this a.m. Patient is much calmer and cooperative. is at bedside. Patient appears to be better oriented today and is ANO x 2. He was able to ambulate with front wheel walker with physical therapy. Patient noted to have scattered rhonchi and rales. Chest x-ray showed extensive bilateral edema/pneumonia. Will give patient IV Lasix as he is currently needing 6 L nasal cannula today. Pending echocardiogram. Will continue to titrate O2 as tolerated..
--- NOTE | 2024-06-26 14:43 | PC.SS ---
Update: Patient's oxygen demand has increased to 5L. D/C within 1-2 days.
--- NOTE | 2024-06-26 15:05 | PC.PT ---
Patient is safe to ambulate to the bathroom using a FWW and 1 staff assist. RN made aware.
--- NOTE | 2024-06-26 15:13 | PC.SS ---
[employer] informed by patient's spouse request to submit referral to [facility]. [employer] discussed with patient's spouse that acute rehab referral will be submitted upon completion of PT evaluation. Discussed elevated level of PT at acute rehab versus SNF. In addition discussed with patient's spouse acceptance dependent on availability and if facility accepts patient's form of insurance.
--- NOTE | 2024-06-26 15:24 | PC.SS ---
Acute Rehab referral submitted to [facility]. Response pending.
--- NOTE | 2024-06-26 16:28 | PC.NURSE ---
Contacted Dr. Burrell in regards to SCD machine not available. stated that he will look into it and call me back.
[2024-06-26] MEDS: MEMANTINE HCL 5 MG TABLET PO (20:38)
[2024-06-26] MEDS: LATANOPROST OP SOL 0.005% 2.5 ML BTL BOTH EYES (20:38)
[2024-06-27] VITALS (10 sets, daily range): BP systolic 123–157; BP diastolic 70–91; PULSE 63–112; RESP 16–24; TEMP 36.2–37.4; O2SAT 91–100; BMI 20.9
[2024-06-27] MEDS: guaiFENesin SYRUP 200 MG/10 ML UDC 100 MG PO ×4 (05:03→21:21)
[2024-06-27 05:56] LABS: Basophils # (Auto) 0.1 Thou/mm3 (0.0-0.2); Basophils % (Auto) 0 % (0-2.5); Eosinophils # (Auto) 0.1 Thou/mm3 (0.0-0.5); Eosinophils % (Auto) 0 % (0-10); Hematocrit 41.4 % (41.0-53.0); Hemoglobin 14.6 g/dL (13.5-16.0); Immature Granulocytes % (Auto) 0 % (0-0); Immature Granulocytes Auto 0.04 Thou/mm3 (0.00-0.00); Lymphocytes # (Auto) 0.9 Thou/mm3 (1.0-4.8); Lymphocytes % (Auto) 6 % (10-50); Mean Corpuscular HGB Conc 35.3 g/dl (31.0-37.0); Mean Corpuscular Hemoglobin 31.6 pg (25.0-35.0); Mean Corpuscular Volume 90 fL (80-100); Monocytes # (Auto) 1.2 Thou/mm3 (0.0-0.8); Monocytes % (Auto) 8 % (0-12); Neutrophils # (Auto) 13.4 Thou/mm3 (1.8-7.7); Neutrophils % (Auto) 86 % (37-80); Nucleated Red Blood Cell % 0 /100 WBC (0); Platelet Count 311 Thou/mm3 (140-440); RDW Standard Deviation 39.7 fL (35.1-43.9); Red Blood Count 4.62 Miln/mm3 (4.50-5.90); White Blood Count 15.6 Thou/mm3 (3.8-10.6)
[2024-06-27 06:36] LABS: Alanine Aminotransferase 22 U/L (10-49); Albumin, Serum 3.6 gm/dL (3.4-4.8); Albumin/Globulin Ratio 1.4 (1.2-2.2); Alkaline Phosphatase 91 U/L (46-116); Anion Gap 8 (7-16); Aspartate Amino Transferase 44 U/L (0-34); BUN/Creatinine Ratio 23 Ratio (12-20); Blood Urea Nitrogen 18 mg/dL (9-23); Calcium 9.1 mg/dL (8.3-10.6); Calcium (Corrected) 9.4 mg/dL (8.5-10.1); Carbon Dioxide 27.7 mMol/L (20.0-31.0); Chloride 100 mMol/L (98-107); Creatinine (Component) 0.8 mg/dL (0.6-1.3); Estimated Creatinine Clearance 68.8 mL/min (>60); Globulin 2.5 gm/dL (2.3-3.5); Glucose 103 mg/dL (74-106); Osmolality,Calculated 273 (275-295); Phosphorous 2.9 mg/dL (2.4-5.1); Potassium 3.8 mMol/L (3.4-5.1); Sodium 136 mMol/L (136-145); Total Protein 6.1 gm/dL (5.7-8.2); eGFR > 60 See Note
[2024-06-27] MEDS: VALPROIC ACID SYRUP 250 MG/5 ML UDC 125 MG PO ×2 (08:44→21:21)
[2024-06-27] MEDS: MEMANTINE HCL 5 MG TABLET PO ×2 (08:45→21:21)
[2024-06-27] MEDS: DOXYCYCLINE 100 MG TABLET PO ×2 (08:45→21:21)
[2024-06-27] MEDS: METOPROLOL SUCCINATE XL 25 MG TABCR PO (08:45)
[2024-06-27] MEDS: FUROSEMIDE INJ 10 MG/ML VIAL 2 ML 20 MG IVP (08:46)
[2024-06-27] MEDS: cefTRIAXone 1,000 MG in SODIUM CHLORIDE 0.9% (Popper) 50 ML 100 MG IV (08:49)
--- NOTE | 2024-06-27 11:56 | ESPR_ITS ---
Documentation for date of: 06/27/24 Subjective Subjective Interval history: confused s/pPPM Exam Vital Signs Temp Pulse Resp BP Pulse Ox O2 Del Method O2 Flow Rate 98.0 F 89 19 123/70 95 Nasal Cannula 4 06/27/24 08:00 06/27/24 08:46 06/27/24 08:00 06/27/24 08:46 06/27/24 08:00 06/27/24 08:00 06/27/24 08:00 Routine HEENT Exam Head: Present normocephalic and atraumatic Eye: Present EOMI and PERRL ENT: Present mucous membranes moist Routine Neck Exam Neck: Present supple and trachea midline Routine Respiratory Exam Respiratory: Present chest non-tender, lungs clear, normal breath sounds and no resp distress Routine Cardiovascular Exam Cardiovascular: Present RRR Routine Abdominal Exam Abdominal: Present soft and normoactive bowel sounds Routine Extremities Exam Extremities: Present full ROM Routine Skin Exam Skin: Present intact, dry and warm Routine Neurological Exam Neurological: Present alert, oriented X3 and CN II-XII intact Routine Psychiatric Exam Psychiatric: Present normal affect and normal thought process Objective Labs 06/27/24 05:29 06/27/24 05:29 Labs: Laboratory Results - last 24 hr 06/27/24 05:29 WBC 15.6 H D RBC 4.62 Hgb 14.6 D Hct 41.4 MCV 90 MCH 31.6 MCHC 35.3 RDW Std Deviation 39.7 Plt Count 311 Neut % (Auto) 86 H Lymph % (Auto) 6 L [place] % (Auto) 8 Eos % (Auto) 0 Baso % (Auto) 0 Neut # (Auto) 13.4 H Lymph # (Auto) 0.9 L [place] # (Auto) 1.2 H Eos # (Auto) 0.1 Baso # (Auto) 0.1 Immature Gran # (Auto) 0.04 H Absolute Nucleated RBC 0.00 Immature Gran % 0 Nucleated RBC % 0 Sodium 136 Potassium 3.8 Chloride 100 Carbon Dioxide 27.7 Anion Gap 8 BUN 18 Creatinine 0.8 Estim Creat Clear Calc 68.8 eGFR > 60 BUN/Creatinine Ratio 23 H Glucose 103 Calculated Osmolality 273 L Calcium 9.1 Corrected Calcium 9.4 Phosphorus 2.9 Magnesium 2.0 Total Bilirubin 1.0 AST 44 H ALT 22 Alkaline Phosphatase 91 D Total Protein 6.1 Albumin 3.6 Globulin 2.5 Albumin/Globulin Ratio 1.4 Assessment & Plan A&P Narrative Status post permanent pacemaker placement Continue current medical management Time Spent With Patient Time: Total time spent is greater than 50% in coordination of care (as documented) at patient's floor/unit and/or counseling patient:
--- NOTE | 2024-06-27 14:40 | PD.RESPRO ---
Documentation for date of: 06/27/24 Subjective Subjective Interval history: No overnight events. Patient seen and examined at bedside. Patient resting comfortably. Patient remains calm and cooperative, endorses shortness of breath, mild cough. Denies chest pain, weakness, fatigue, fever, chills. Echo showed dilated cardiomyopathy. Continue current management with Lasix and metoprolol, lisinopril. Patient needs to follow-up with cardiology outpatient for further management. Titrating down O2 requirements. Exam Vital Signs Temp Pulse Resp BP Pulse Ox O2 Del Method O2 Flow Rate 97.2 F 78 24 H 131/91 H 92 L Nasal Cannula 4 06/27/24 12:00 06/27/24 12:00 06/27/24 12:00 06/27/24 12:00 06/27/24 12:00 06/27/24 12:06/27/24 12:00 Narrative Exam PE: Gen: Well-developed and well-nourished. Thin. Elderly. HEENT: NCAT, PERRLA, EOMI, MMM, anicteric conjunctivae. CVS: normal S1 and S2. No M/R/G. Regular rhythm, tachycardia. Pacemaker. Resp: Coarse lung sounds diffusely, greatly improved. Abd: soft, non-tender, non-distended. MSK: Good ROM in BUE & BLE. No rash. Trace pitting edema BLE. Neuro: CN II-XII grossly intact. Strength 5/5 in BUE & BLE. Alert and oriented x 1, delirious. Objective Labs 06/27/24 05:29 06/27/24 05:29 Labs: Laboratory Results - last 24 hr 06/27/24 05:29 WBC 15.6 H D RBC 4.62 Hgb 14.6 D Hct 41.4 MCV 90 MCH 31.6 MCHC 35.3 RDW Std Deviation 39.7 Plt Count 311 Neut % (Auto) 86 H Lymph % (Auto) 6 L [place] % (Auto) 8 Eos % (Auto) 0 Baso % (Auto) 0 Neut # (Auto) 13.4 H Lymph # (Auto) 0.9 L [place] # (Auto) 1.2 H Eos # (Auto) 0.1 Baso # (Auto) 0.1 Immature Gran # (Auto) 0.04 H Absolute Nucleated RBC 0.00 Immature Gran % 0 Nucleated RBC % 0 Sodium 136 Potassium 3.8 Chloride 100 Carbon Dioxide 27.7 Anion Gap 8 BUN 18 Creatinine 0.8 Estim Creat Clear Calc 68.8 eGFR > 60 BUN/Creatinine Ratio 23 H Glucose 103 Calculated Osmolality 273 L Calcium 9.1 Corrected Calcium 9.4 Phosphorus 2.9 Magnesium 2.0 Total Bilirubin 1.0 AST 44 H ALT 22 Alkaline Phosphatase 91 D Total Protein 6.1 Albumin 3.6 Globulin 2.5 Albumin/Globulin Ratio 1.4 Quality Measures Quality Measures VTE prophylaxis Advance care planning discussed with:: patient Assessment & Plan Assessment Current Active Medications: Generic Name Dose Route Start Last Admin Trade Name Freq PRN Reason Stop Dose Admin Atropine Sulfate 1 mg 06/24/24 18:33 Atropine Sulf Inj 0.1 Mg/Ml Syr 10 Ml IV Q3MIN PRN BRADYCARDIA HR LESS THAN 30 Doxycycline Hyclate 100 mg 06/25/24 21:00 06/27/24 08:45 Doxycycline 100 Mg Tablet PO 07/02/24 20:59 100 mg BID BLAIR Administration Furosemide 20 mg 06/27/24 09:00 06/27/24 08:46 Furosemide Inj 10 Mg/Ml Vial 2 Ml IVP 07/27/24 08:59 20 mg QDAY BLAIR Administration Guaifenesin 100 mg 06/26/24 12:30 06/27/24 11:48 Guaifenesin Syrup 200 Mg/10 Ml Udc PO 07/26/24 12:29 100 mg QID BLAIR Administration Protocol Ceftriaxone Sodium 1,000 mg/ 50 mls @ 100 mls/hr 06/26/24 09:51 06/27/24 08:49 Sodium Chloride IV 07/03/24 09:50 100 mls/hr QDAY BLAIR Administration Latanoprost 0 drop 06/26/24 21:00 06/26/24 20:38 Latanoprost Op Leyla 0.005% 2.5 Ml Btl BOTH EYES 07/26/24 20:59 1 drop QPM BLAIR Administration Memantine 5 mg 06/26/24 21:00 06/27/24 08:45 Memantine Hcl 5 Mg Tablet PO 07/26/24 20:59 5 mg BID BLAIR Administration Metoprolol Succinate 25 mg 06/26/24 10:00 06/27/24 08:45 Metoprolol Succinate Xl 25 Mg Tabcr PO 07/26/24 09:59 25 mg QDAY BLAIR Administration Valproic Acid 125 mg 06/26/24 09:00 06/27/24 08:44 Valproic Acid Syrup 250 Mg/5 Ml Udc PO 07/26/24 08:59 125 mg BID BLAIR Administration Plan 88 y/o M with PMHx significant for dementia, BPH, seizures, glaucoma presenting with chief complaint of intermittent chest pain x 2 hours, admitted for third-degree heart block. 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 Troponin negative, but EKG showed complete heart block with bradycardia. Cardiology was consulted, Dr. Awan recommended admission to telemetry, plan to place pacemaker tomorrow. Patient hemodynamically stable at this time. Endorses mild shortness of breath but saturating well. Considered dopamine drip, will not use due to elevated blood pressure, 175/62. Patient pacemaker implanted, well-tolerated. Patient has paced rhythm, regular rate and rhythm now. Troponin only mildly elevated. Cefazolin 1 g IV every 6 hours x 3 bags completed. Frequent PVCs seen on telemetry. EKG showed paced rhythm. Echo showed dilated left ventricle, ejection fraction 40-45%, diastolic dysfunction grade 3. -Cardiac diet -Cardiology consulted, appreciate recommendations -Telemetry -Metoprolol succinate 25 mg p.o. daily -Lasix 20 mg IV daily -Lisinopril 2.5 mg p.o. daily #Acute hypoxic respiratory failure secondary to #Community acquired pneumonia # Acute decompensated heart failure On initial chest x-ray patient had right-sided infiltrates. At time, patient denies shortness of breath, cough, fever, chills. Patient had no WBC elevation or other signs of infection so was not treated. Overnight, patient developed cough, complains of mild cough without shortness of breath. Antibiotics initiated. Remains afebrile, no leukocytosis. Patient developed acute hypoxic respiratory failure, requiring 5 L/min of O2 via nasal cannula, saturating 92%. Bibasilar crackles on exam. Patient has been treated with Lasix, improvement lung sounds, O2 being titrated down. -Doxycycline 100 mg p.o. twice daily (started 06/25) -Rocephin 1 g IV daily (started 06/26) -Robitussin 100 mg p.o. 4 times daily as needed for cough -Supplemental O2, titrate down. -Treat heart failure as above #Seizures Patient was diagnosed with new onset seizures 1 month ago following a fall with EEG indicating seizure-like activity. Patient be discharged with Depakote, has not had seizure since. -Depakote 125 mg p.o. twice daily #Dementia #Hospital induced delirium Patient has history of dementia. A&O x 2 currently at patient's baseline. Patient hide mildly increased confusion following procedure, likely hospital induced delirium. -Delirium precautions -Avoid sedatives -Maintain good day night cycle -Encourage family visits -Home medication memantine 5 mg p.o. twice daily started #BPH, patient history #Glaucoma Patient is history as stated. -Latanoprost eyedrops daily -Holding tamsulosin due to recent pacemaker DVT prophylaxis: SCDs GI prophylaxis: None Diet: Cardiac Lines: Peripheral IV Code status: Limited code: No compressions or intubation, defibrillation acceptable Plan of care discussed with attending Dr. Iqbal. Kei Slater MD PGY?1 Attending Provider Attestation/Addendum Anna, Faith Iqbal, DO, attest that I was physically present for the cuellar portions of the service and evaluated the patient with the resident and I reviewed and discussed the case with the resident and agree with the resident's findings and plans of care as documented above Patient seen and evaluated this AM. Patient is resting comfortably, less rales today on lung exam. Echocardiogram shows dilated cardiomyopathy with a EF of 40 to 45% with diastolic dysfunction type III. RV pressure is 38 mmHg. Left atrium appears moderately dilated and right atrium also appears mildly dilated. Continue with IV diuresis at this time. Patient is currently on 3 L nasal cannula. Will continue to titrate O2 as tolerated. Will start PATSY inhibitor in addition to the beta-gabino due to cardiomyopathy. No acute events overnight otherwise.
[2024-06-27] MEDS: LATANOPROST OP SOL 0.005% 2.5 ML BTL BOTH EYES (21:22)
[2024-06-28] VITALS (11 sets, daily range): BP systolic 105–139; BP diastolic 56–84; PULSE 75–111; RESP 18–92; TEMP 36.2–36.9; O2SAT 91–98; BMI 20.9
[2024-06-28] MEDS: guaiFENesin SYRUP 200 MG/10 ML UDC 100 MG PO ×4 (05:18→20:17)
[2024-06-28 06:45] LABS: Basophils % (Auto) 0 % (0-2.5); Eosinophils # (Auto) 0.1 Thou/mm3 (0.0-0.5); Eosinophils % (Auto) 0 % (0-10); Hematocrit 37.6 % (41.0-53.0); Hemoglobin 13.1 g/dL (13.5-16.0); Immature Granulocytes % (Auto) 0 % (0-0); Immature Granulocytes Auto 0.06 Thou/mm3 (0.00-0.00); Lymphocytes # (Auto) 0.7 Thou/mm3 (1.0-4.8); Lymphocytes % (Auto) 5 % (10-50); Mean Corpuscular HGB Conc 34.8 g/dl (31.0-37.0); Mean Corpuscular Hemoglobin 31.4 pg (25.0-35.0); Mean Corpuscular Volume 90 fL (80-100); Monocytes # (Auto) 1.5 Thou/mm3 (0.0-0.8); Monocytes % (Auto) 10 % (0-12); Neutrophils # (Auto) 12.2 Thou/mm3 (1.8-7.7); Neutrophils % (Auto) 84 % (37-80); Nucleated Red Blood Cell % 0 /100 WBC (0); Platelet Count 239 Thou/mm3 (140-440); RDW Standard Deviation 40.6 fL (35.1-43.9); Red Blood Count 4.17 Miln/mm3 (4.50-5.90); White Blood Count 14.6 Thou/mm3 (3.8-10.6)
[2024-06-28 07:04] LABS: Alanine Aminotransferase 26 U/L (10-49); Albumin, Serum 3.1 gm/dL (3.4-4.8); Albumin/Globulin Ratio 1.5 (1.2-2.2); Alkaline Phosphatase 78 U/L (46-116); Anion Gap 6 (7-16); Aspartate Amino Transferase 34 U/L (0-34); BUN/Creatinine Ratio 23 Ratio (12-20); Bilirubin,Total 0.8 mg/dL (0.3-1.2); Blood Urea Nitrogen 21 mg/dL (9-23); Calcium 8.8 mg/dL (8.3-10.6); Calcium (Corrected) 9.5 mg/dL (8.5-10.1); Carbon Dioxide 29.6 mMol/L (20.0-31.0); Chloride 100 mMol/L (98-107); Creatinine (Component) 0.9 mg/dL (0.6-1.3); Estimated Creatinine Clearance 61.2 mL/min (>60); Globulin 2.1 gm/dL (2.3-3.5); Glucose 109 mg/dL (74-106); Magnesium 1.9 mg/dL (1.6-2.6); Osmolality,Calculated 275 (275-295); Phosphorous 3.5 mg/dL (2.4-5.1); Sodium 136 mMol/L (136-145); Total Protein 5.2 gm/dL (5.7-8.2); eGFR > 60 See Note
[2024-06-28] MEDS: METOPROLOL SUCCINATE XL 25 MG TABCR PO (08:37)
[2024-06-28] MEDS: cefTRIAXone 1,000 MG in SODIUM CHLORIDE 0.9% (Popper) 50 ML 100 MG IV (08:37)
[2024-06-28] MEDS: MEMANTINE HCL 5 MG TABLET PO ×2 (08:38→20:17)
[2024-06-28] MEDS: DOXYCYCLINE 100 MG TABLET PO ×2 (08:38→20:17)
[2024-06-28] MEDS: Lisinopril 2.5 MG TABLET PO (08:38)
[2024-06-28] MEDS: FUROSEMIDE INJ 10 MG/ML VIAL 2 ML 20 MG IVP (08:39)
[2024-06-28] MEDS: VALPROIC ACID SYRUP 250 MG/5 ML UDC 125 MG PO ×2 (08:39→20:17)
--- NOTE | 2024-06-28 10:37 | PC.SS ---
Follow up note: SS reviewed notes and patient is pending approval/auth for [facility] acute rehab. [facility] indicates they are considering patient. F/u on Saturday with facility.
--- NOTE | 2024-06-28 12:00 | PD.RESPRO ---
Documentation for date of: 06/28/24 Subjective Subjective Interval history: Overnight no acute events reported. Patient seen and examined at bedside. Patient is currently on 1 L nasal cannula, saturating well above 94%. Patient's heart rate is well above 60, and denies any complaints at this time. Patient is currently awaiting auth for PT in [place]. Will continue with metoprolol, lisinopril, Lasix. Exam Vital Signs Temp Pulse Resp BP Pulse Ox O2 Del Method O2 Flow Rate 97.3 F 111 H 34 H 139/84 H 92 L Nasal Cannula 4 06/28/24 08:00 06/28/24 11:01 06/28/24 11:01 06/28/24 08:39 06/28/24 08:00 06/28/24 08:00 06/28/24 04:00 Narrative Exam General Appearance: Pt is an elderly male, thin and elderly in mild acute distress, cooperative well-developed. Alert and oriented. HEENT: NC/AT, no scleral icterus, no conjunctival pallor, MMM Lungs: CTAB, no wheezes or crackles appreciated CVS: RRR. S1/S2 heard, no murmurs or rubs appreciated, pacemaker insertion site clean and intact ABD: Soft, non-tender, non-distended, BS + in all 4 quadrants EXT: no deformity/edema/lesions/cyanosis/clubbing, radial pulses 2+ BL, DP pulses 2 + BL SKIN: Skin exam normal without any rashes. Neuro: A&O x 1 to name. No gross neurological deficits. Motor and sensory grossly intact in B/L UL and LL. Objective Labs 06/29/24 05:13 06/29/24 05:13 Labs: Laboratory Results - last 24 hr 06/28/24 06:27 WBC 14.6 H RBC 4.17 L Hgb 13.1 L Hct 37.6 L MCV 90 MCH 31.4 MCHC 34.8 RDW Std Deviation 40.6 Plt Count 239 D Neut % (Auto) 84 H Lymph % (Auto) 5 L [place] % (Auto) 10 Eos % (Auto) 0 Baso % (Auto) 0 Neut # (Auto) 12.2 H Lymph # (Auto) 0.7 L [place] # (Auto) 1.5 H Eos # (Auto) 0.1 Baso # (Auto) 0.0 Immature Gran # (Auto) 0.06 H Absolute Nucleated RBC 0.00 Immature Gran % 0 Nucleated RBC % 0 Sodium 136 Potassium 4.0 Chloride 100 Carbon Dioxide 29.6 Anion Gap 6 L BUN 21 Creatinine 0.9 Estim Creat Clear Calc 61.2 eGFR > 60 BUN/Creatinine Ratio 23 H Glucose 109 H Calculated Osmolality 275 Calcium 8.8 Corrected Calcium 9.5 Phosphorus 3.5 Magnesium 1.9 Total Bilirubin 0.8 AST 34 ALT 26 Alkaline Phosphatase 78 Total Protein 5.2 L Albumin 3.1 L D Globulin 2.1 L Albumin/Globulin Ratio 1.5 Quality Measures Quality Measures VTE prophylaxis Advance care planning discussed with:: spouse Assessment & Plan Assessment Current Active Medications: Generic Name Dose Route Start Last Admin Trade Name Freq PRN Reason Stop Dose Admin Atropine Sulfate 1 mg 06/24/24 18:33 Atropine Sulf Inj 0.1 Mg/Ml Syr 10 Ml IV Q3MIN PRN BRADYCARDIA HR LESS THAN 30 Doxycycline Hyclate 100 mg 06/25/24 21:00 06/28/24 08:38 Doxycycline 100 Mg Tablet PO 07/02/24 20:59 100 mg BID BALIR Administration Furosemide 20 mg 06/27/24 09:00 06/28/24 08:39 Furosemide Inj 10 Mg/Ml Vial 2 Ml IVP 07/27/24 08:59 20 mg QDAY BLAIR Administration Guaifenesin 100 mg 06/26/24 12:30 06/28/24 05:18 Guaifenesin Syrup 200 Mg/10 Ml Udc PO 07/26/24 12:29 100 mg QID BLAIR Administration Protocol Ceftriaxone Sodium 1,000 mg/ 50 mls @ 100 mls/hr 06/26/24 09:51 06/28/24 08:37 Sodium Chloride IV 07/03/24 09:50 100 mls/hr QDAY BLAIR Administration Latanoprost 0 drop 06/26/24 21:00 06/27/24 21:22 Latanoprost Op Leyla 0.005% 2.5 Ml Btl BOTH EYES 07/26/24 20:59 1 drop QPM BLAIR Administration Lisinopril 2.5 mg 06/28/24 09:00 06/28/24 08:38 Lisinopril 2.5 Mg Tablet PO 07/28/24 08:59 2.5 mg QDAY BLAIR Administration Memantine 5 mg 06/26/24 21:00 06/28/24 08:38 Memantine Hcl 5 Mg Tablet PO 07/26/24 20:59 5 mg BID BLAIR Administration Metoprolol Succinate 25 mg 06/26/24 10:00 06/28/24 08:37 Metoprolol Succinate Xl 25 Mg Tabcr PO 07/26/24 09:59 25 mg QDAY BLAIR Administration Valproic Acid 125 mg 06/26/24 09:00 06/28/24 08:39 Valproic Acid Syrup 250 Mg/5 Ml Udc PO 07/26/24 08:59 125 mg BID BLAIR Administration Plan 88 y/o M with PMHx significant for dementia, BPH, seizures, glaucoma presenting with chief complaint of intermittent chest pain x 2 hours, admitted for third-degree heart block. 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 Troponin negative, but EKG showed complete heart block with bradycardia. Cardiology was consulted, Dr. Awan recommended admission to telemetry, plan to place pacemaker tomorrow. Patient hemodynamically stable at this time. Endorses mild shortness of breath but saturating well. Considered dopamine drip, will not use due to elevated blood pressure, 175/62. Patient pacemaker implanted, well-tolerated. Patient has paced rhythm, regular rate and rhythm now. Troponin only mildly elevated. Cefazolin 1 g IV every 6 hours x 3 bags completed. Frequent PVCs seen on telemetry. EKG showed paced rhythm. Echo showed dilated left ventricle, ejection fraction 40-45%, diastolic dysfunction grade 3. -Cardiac diet -Cardiology consulted, appreciate recommendations -Telemetry -Metoprolol succinate 25 mg p.o. daily -Lasix 20 mg IV daily -Lisinopril 2.5 mg p.o. daily #Acute hypoxic respiratory failure secondary to #Community acquired pneumonia # Acute decompensated heart failure On initial chest x-ray patient had right-sided infiltrates. At time, patient denies shortness of breath, cough, fever, chills. Patient had no WBC elevation or other signs of infection so was not treated. Overnight, patient developed cough, complains of mild cough without shortness of breath. Antibiotics initiated. Remains afebrile, no leukocytosis. Patient developed acute hypoxic respiratory failure, requiring 5 L/min of O2 via nasal cannula, saturating 92%. Bibasilar crackles on exam. Patient has been treated with Lasix, improvement lung sounds, O2 being titrated down. -Doxycycline 100 mg p.o. twice daily (started 06/25) -Rocephin 1 g IV daily (started 06/26) -Robitussin 100 mg p.o. 4 times daily as needed for cough -Supplemental O2, titrate down. -Treat heart failure as above #Seizures Patient was diagnosed with new onset seizures 1 month ago following a fall with EEG indicating seizure-like activity. Patient be discharged with Depakote, has not had seizure since. -Depakote 125 mg p.o. twice daily #Dementia #Hospital induced delirium Patient has history of dementia. A&O x 2 currently at patient's baseline. Patient hide mildly increased confusion following procedure, likely hospital induced delirium. -Delirium precautions -Avoid sedatives -Maintain good day night cycle -Encourage family visits -Home medication memantine 5 mg p.o. twice daily started #BPH, patient history #Glaucoma Patient is history as stated. -Latanoprost eyedrops daily -Holding tamsulosin due to recent pacemaker Health maintenance: DVT prophylaxis: SCDs GI prophylaxis: None Diet: Cardiac Lines: Peripheral IV Code status: Limited code: No compressions or intubation, defibrillation acceptable Patient's plan and care discussed with my attending, Dr. Farida Mederos MD PGY-2 Attending Provider Attestation/Addendum Anna, Faith Iqbal DO, attest that I was physically present for the cuellar portions of the service and evaluated the patient with the resident and I reviewed and discussed the case with the resident and agree with the resident's findings and plans of care as documented above Patient seen and evaluated this a.m. Patient resting comfortably and denies any active chest pain, shortness of breath, nausea, vomiting otherwise. Lungs are clear to auscultation bilaterally. He is currently on 1 L nasal cannula and in no respiratory distress. Patient is pending arrangement for SNF in [place] for acute rehab. Patient can otherwise be discharged to SNF once arranged.
[2024-06-28] MEDS: LATANOPROST OP SOL 0.005% 2.5 ML BTL BOTH EYES (20:18)
[2024-06-29] VITALS (10 sets, daily range): BP systolic 116–140; BP diastolic 54–82; PULSE 72–100; RESP 14–30; TEMP 36.2–37; O2SAT 92–98; BMI 20.6; BMI 13.0
[2024-06-29] MEDS: guaiFENesin SYRUP 200 MG/10 ML UDC 100 MG PO ×4 (05:14→20:20)
[2024-06-29 06:09] LABS: Basophils # (Auto) 0.1 Thou/mm3 (0.0-0.2); Basophils % (Auto) 0 % (0-2.5); Eosinophils # (Auto) 0.3 Thou/mm3 (0.0-0.5); Eosinophils % (Auto) 2 % (0-10); Hematocrit 37.5 % (41.0-53.0); Immature Granulocytes % (Auto) 0 % (0-0); Immature Granulocytes Auto 0.03 Thou/mm3 (0.00-0.00); Lymphocytes # (Auto) 0.8 Thou/mm3 (1.0-4.8); Lymphocytes % (Auto) 7 % (10-50); Mean Corpuscular HGB Conc 34.7 g/dl (31.0-37.0); Mean Corpuscular Hemoglobin 31.4 pg (25.0-35.0); Mean Corpuscular Volume 91 fL (80-100); Monocytes # (Auto) 1.4 Thou/mm3 (0.0-0.8); Monocytes % (Auto) 11 % (0-12); Neutrophils % (Auto) 79 % (37-80); Nucleated Red Blood Cell % 0 /100 WBC (0); Platelet Count 266 Thou/mm3 (140-440); RDW Standard Deviation 40.1 fL (35.1-43.9); Red Blood Count 4.14 Miln/mm3 (4.50-5.90); White Blood Count 12.6 Thou/mm3 (3.8-10.6)
[2024-06-29 06:34] LABS: Alanine Aminotransferase 89 U/L (10-49); Albumin, Serum 3.1 gm/dL (3.4-4.8); Albumin/Globulin Ratio 1.3 (1.2-2.2); Alkaline Phosphatase 97 U/L (46-116); Anion Gap 8 (7-16); Aspartate Amino Transferase 127 U/L (0-34); BUN/Creatinine Ratio 34 Ratio (12-20); Bilirubin,Total 0.8 mg/dL (0.3-1.2); Blood Urea Nitrogen 24 mg/dL (9-23); Calcium 9.1 mg/dL (8.3-10.6); Calcium (Corrected) 9.8 mg/dL (8.5-10.1); Chloride 101 mMol/L (98-107); Creatinine (Component) 0.7 mg/dL (0.6-1.3); Estimated Creatinine Clearance 77.7 mL/min (>60); Globulin 2.4 gm/dL (2.3-3.5); Glucose 95 mg/dL (74-106); Osmolality,Calculated 277 (275-295); Sodium 137 mMol/L (136-145); Total Protein 5.5 gm/dL (5.7-8.2); eGFR > 60 See Note
[2024-06-29] MEDS: Lisinopril 2.5 MG TABLET PO (09:08)
[2024-06-29] MEDS: VALPROIC ACID SYRUP 250 MG/5 ML UDC 125 MG PO ×2 (09:08→20:20)
[2024-06-29] MEDS: FUROSEMIDE INJ 10 MG/ML VIAL 2 ML 20 MG IVP (09:09)
[2024-06-29] MEDS: DOXYCYCLINE 100 MG TABLET PO ×2 (09:09→20:20)
[2024-06-29] MEDS: MEMANTINE HCL 5 MG TABLET PO ×2 (09:09→20:20)
[2024-06-29] MEDS: METOPROLOL SUCCINATE XL 25 MG TABCR PO (09:09)
[2024-06-29] MEDS: cefTRIAXone 1,000 MG in SODIUM CHLORIDE 0.9% (Popper) 50 ML 100 MG IV (09:09)
--- NOTE | 2024-06-29 09:27 | PC.CM ---
Patient is opened to [facility]. If he goes home he will need new orders.
--- NOTE | 2024-06-29 10:51 | PC.SS ---
DEVULCANIZER HEAD fielded phone call from [facility]hab staff, Racheal Stanton; informing DEVULCANIZER HEAD that patient does not meet criteria for acute rehab placement. DEVULCANIZER HEAD relayed information to patient's spouse, Sammie Gomes. Spouse has elected to transition the patient to [facility] for short term placement. DEVULCANIZER HEAD notified [facility] staff, Mine Garcia. SNF to begin authorization process.
--- NOTE | 2024-06-29 10:54 | PC.SS ---
Update: Patient is on room air. Receiving antibiotics to address PNA. PT treatment session scheduled for today.
--- NOTE | 2024-06-29 15:56 | ESDS_ITS ---
<Statement entered by Faith Iqbal DO - 06/29/24 17:46> I, Faith Iqbal DO, attest that I was physically present for the cuellar portions of the service and evaluated the patient with the resident and I reviewed and discussed the case with the resident and agree with the resident's findings and plans of care as documented above <Statement entered by Sarah Carrillo MD - 06/29/24 16:59> I discussed with and supervised the diversity intern physician who took care of this patient. I personally saw and examined the patient and discussed the assessment and plan with the entire medicine team, including my attending Dr. Iqbal I agree with the assessment and plan as documented below Patient seen and examined at bedside today. Labs and imaging reviewed. PCP and auto radiator specialist within 1-2 weeks. Please take your new medications as prescribed: Doxycycline twice daily for three more days, Lisinopril 2.5mg once daily, Metoprolol succinate 25mg once daily, and Valproic acid 125mg twice daily Continue all other home medications as prescribed, and use O2 as needed. Sarah Carrillo MD PGY-3 Disclaimer: Despite multiple revisions, due to the dictation software being used, the document bellow may not be free of grammatical errors including phonetic/typographic errors. However, this does not deter from our commitment to providing health care in the patient's best interest in mind. Planned Discharge Date 06/29/24 DS: Providers Provider Date of admission: 06/24/24 17:25 Primary care physician: Physician No Primary/Family Admitting Provider: Faith Iqbal DO Attending Provider on Admission: Fiath Iqbal DO Consults: 06/24/24 18:11 Consult to Cardiology Stat Comment: Consulting Provider: Dejan Awan 06/24/24 23:58 Referral [place] Routine Comment: Referral Physical Therapy Routine Comment: Physician Instructions: Referral Respiratory Therapy Routine Comment: Health Equity Referral - Knowledge Deficit Routine Comment: Positive screening for knowledge deficit needs. Attending Provider on DC: Faith Iqbal DO Discharging Provider: Kei Slater MD DS: Diagnosis Problem List Completed Was Problem List Reviewed/Reconciled?: Yes Hospital Course Hospital Course Hospital course: 88 y/o M with PMHx significant for dementia, BPH, seizures, glaucoma presented with chief complaint of intermittent chest pain x 2 hours. Patient altered at baseline, history taken from chart review and daughter at bedside. Patient reports moderate chest pain with mild shortness of breath during. Troponin only mildly elevated, EKG showed complete heart block with bradycardia. Cardiology was consulted, pacemaker was placed without incident. During course of hospital stay, patient developed worsening shortness of breath, chest x-ray indicating pneumonia. Patient was treated with antibiotics. Echo showed diastolic dysfunction and heart failure with reduced ejection fraction. Appropriate medications initiated with cardiology recommendations. Patient cleared from cardiology for discharge. Patient medically stable and cleared for discharge. Discharge plan: Please see your PCP and auto radiator specialist within 1-2 weeks. Please take your new medications as prescribed: Doxycycline twice daily for three more days, Lisinopril 2.5mg once daily, Metoprolol succinate 25mg once daily, and Valproic acid 125mg twice daily Continue all other home medications as prescribed, and use O2 as needed. 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 Carrillo PGY?[address] Iqbal. Kei Slater MD PGY?1 Time Spent with Patient Time attestation: Total time spent providing and/or coordinating discharge services: Exam Vital Signs Temp Pulse Resp BP Pulse Ox O2 Del Method O2 Flow Rate 97.2 F 89 20 129/71 98 Nasal Cannula 3.5 06/29/24 11:55 06/29/24 11:55 06/29/24 11:55 06/29/24 11:55 06/29/24 11:55 06/29/24 11:55 06/29/24 11:55 Narrative Exam General Appearance: Pt is an elderly male, thin and elderly in mild acute distress, cooperative well-developed. Alert and oriented. HEENT: NC/AT, no scleral icterus, no conjunctival pallor, MMM Lungs: CTAB, no wheezes or crackles appreciated CVS: RRR. S1/S2 heard, no murmurs or rubs appreciated, pacemaker insertion site clean and intact ABD: Soft, non-tender, non-distended, BS + in all 4 quadrants EXT: no deformity/edema/lesions/cyanosis/clubbing, radial pulses 2+ BL, DP pulses 2 + BL SKIN: Skin exam normal without any rashes. Neuro: A&O x 1 to name. No gross neurological deficits. Motor and sensory grossly intact in B/L UL and LL. Discharge Plan Plan Patient Disposition: Xfer Skilled Nsg Fac (SNF) Patient condition on transfer: Stable Care Plan Goals: Please see your PCP and auto radiator specialist within 1-2 weeks. Please take your new medications as prescribed: Doxycycline twice daily for three more days, Lisinopril 2.5mg once daily, Metoprolol succinate 25mg once daily, and Valproic acid 125mg twice daily Continue all other home medications as prescribed, and use O2 as needed. Prescriptions/Referrals Prescriptions/Med Rec: New metoprolol succinate 25 mg Tablet Extended Release 24 Hr 25 mg PO QDAY 30 Days Qty: 30 0RF lisinopril 2.5 mg Tablet 2.5 mg PO QDAY 30 Days Qty: 30 0RF doxycycline hyclate 100 mg Tablet 100 mg PO BID 3 Days Qty: 6 0RF valproic acid (as sodium salt) 250 mg/5 mL (5 mL) Solution 125 mg PO BID 30 Days Qty: 150 0RF Continued tamsulosin 0.4 mg capsule 0.4 mg PO QDAY latanoprost 0.005 % drops 1 drp Both eyes QPM memantine 5 mg tablet 5 mg PO BID Discontinued divalproex 250 mg tablet,delayed release (DR/EC) 250 mg PO BID Qty: 60 1RF divalproex 250 mg tablet,delayed release (DR/EC) 250 mg PO BID 30 Days Qty: 60 2RF Referrals: No Primary/Family,Physician [Primary Care Provider] - Dejan Awan MD [Physician] - Adis Mederos MD [Physician] - Patient/Caregiver Discharge Instructions Discharge Activity: resume usual activities Education Materials: Living with a Pacemaker, Discharge Instructions for ..., Preventing Surgical Site Infections, Procedural Sedation Print Language: Palestinian Activity Restrictions/Additional Instructions: Please call to schedule a follow up appointment to be seen by Dr. Awan, (Rn Burn), in his office within one week upon discharge. . Address: [address] [place]. [address]. DO NOT REMOVE THE DRESSING THAT COVERS YOUR SURGICAL SITE, KEEP IT CLEAN AND DRY. If you need to take a shower, not recommended the same day of the surgery, but; until the following day, cover your dressing to keep it dry. If is easier for you, you can choose to take sponge baths to avoid getting your surgical dressing wet. You need to call the auto radiator specialist?s office to schedule a follow up appointment. During this visit, your auto radiator specialist will remove the dressing place on the surgical incision, DO NOT REMOVE IT BEFORE THIS DATE, and will take a look to the surgical site to make sure there is not complications after the procedure such as but not limited to infection. In addition, your auto radiator specialist may cons ider to remove the teresa placed during this procedure on the same day of your appointment. Call your primary care doctor right away if you develop signs and symptoms of infection such as elevated temperature, malaise, redness to the surgical site, pain to the surgical site, or drainage. Stand Alone Forms: [facility]ida Award Info., Patient Portal Info Letter Discharge Order Discharge Orders: Discharge (Routine); Ordered 06/29/24 Ordered By: Nyla Mederos Quality Discharge Quality Measures VTE prophylaxis
--- NOTE | 2024-06-29 17:27 | PC.SS ---
C[employer]ON [employer]ER confirmed with [facility] staff that authorization remains pending.
[2024-06-29] MEDS: LATANOPROST OP SOL 0.005% 2.5 ML BTL BOTH EYES (21:00)
[2024-06-30] VITALS (11 sets, daily range): BP systolic 106–162; BP diastolic 77–92; PULSE 92–114; RESP 13–91; TEMP 36.2–36.9; O2SAT 91–98; BMI 20.4
[2024-06-30] MEDS: guaiFENesin SYRUP 200 MG/10 ML UDC 100 MG PO ×2 (05:16→20:54)
[2024-06-30 06:09] LABS: Basophils # (Auto) 0.1 Thou/mm3 (0.0-0.2); Basophils % (Auto) 0 % (0-2.5); Eosinophils # (Auto) 0.2 Thou/mm3 (0.0-0.5); Eosinophils % (Auto) 2 % (0-10); Hematocrit 38.1 % (41.0-53.0); Hemoglobin 13.2 g/dL (13.5-16.0); Immature Granulocytes % (Auto) 0 % (0-0); Immature Granulocytes Auto 0.03 Thou/mm3 (0.00-0.00); Lymphocytes # (Auto) 0.7 Thou/mm3 (1.0-4.8); Lymphocytes % (Auto) 6 % (10-50); Mean Corpuscular HGB Conc 34.6 g/dl (31.0-37.0); Mean Corpuscular Hemoglobin 31.6 pg (25.0-35.0); Mean Corpuscular Volume 91 fL (80-100); Monocytes # (Auto) 1.3 Thou/mm3 (0.0-0.8); Monocytes % (Auto) 11 % (0-12); Neutrophils # (Auto) 9.2 Thou/mm3 (1.8-7.7); Neutrophils % (Auto) 80 % (37-80); Nucleated Red Blood Cell % 0 /100 WBC (0); Platelet Count 291 Thou/mm3 (140-440); RDW Standard Deviation 40.2 fL (35.1-43.9); Red Blood Count 4.18 Miln/mm3 (4.50-5.90); White Blood Count 11.5 Thou/mm3 (3.8-10.6)
[2024-06-30 06:48] LABS: Alanine Aminotransferase 130 U/L (10-49); Albumin, Serum 3.2 gm/dL (3.4-4.8); Albumin/Globulin Ratio 1.3 (1.2-2.2); Alkaline Phosphatase 124 U/L (46-116); Anion Gap 8 (7-16); Aspartate Amino Transferase 150 U/L (0-34); BUN/Creatinine Ratio 28 Ratio (12-20); Bilirubin,Total 0.9 mg/dL (0.3-1.2); Blood Urea Nitrogen 22 mg/dL (9-23); Calcium 9.1 mg/dL (8.3-10.6); Calcium (Corrected) 9.7 mg/dL (8.5-10.1); Chloride 101 mMol/L (98-107); Creatinine (Component) 0.8 mg/dL (0.6-1.3); Estimated Creatinine Clearance 67.3 mL/min (>60); Globulin 2.4 gm/dL (2.3-3.5); Glucose 105 mg/dL (74-106); Osmolality,Calculated 277 (275-295); Phosphorous 3.6 mg/dL (2.4-5.1); Potassium 3.7 mMol/L (3.4-5.1); Sodium 137 mMol/L (136-145); Total Protein 5.6 gm/dL (5.7-8.2); eGFR > 60 See Note
[2024-06-30] MEDS: DOXYCYCLINE 100 MG TABLET PO ×2 (08:28→20:54)
[2024-06-30] MEDS: MEMANTINE HCL 5 MG TABLET PO ×2 (08:28→20:54)
[2024-06-30] MEDS: METOPROLOL SUCCINATE XL 25 MG TABCR PO (08:28)
[2024-06-30] MEDS: VALPROIC ACID SYRUP 250 MG/5 ML UDC 125 MG PO ×2 (08:28→20:54)
[2024-06-30] MEDS: Lisinopril 2.5 MG TABLET PO (08:28)
[2024-06-30] MEDS: FUROSEMIDE INJ 10 MG/ML VIAL 2 ML 20 MG IVP (08:29)
[2024-06-30] MEDS: cefTRIAXone 1,000 MG in SODIUM CHLORIDE 0.9% (Popper) 50 ML 100 MG IV (08:29)
[2024-06-30] MEDS: POTASSIUM CHLORIDE 20 mEq TABCR PO (11:08)
--- NOTE | 2024-06-30 13:51 | PD.RESDS ---
Planned Discharge Date 06/30/24 DS: Providers Provider Date of admission: 06/24/24 17:25 Primary care physician: Physician No Primary/Family Admitting Provider: Faith Iqbal DO Attending Provider on Admission: Faith Iqbal DO Consults: 06/24/24 18:11 Consult to Cardiology Stat Comment: Consulting Provider: Dejan Awan 06/24/24 23:58 Referral [place] Routine Comment: Referral Physical Therapy Routine Comment: Physician Instructions: Referral Respiratory Therapy Routine Comment: Health Equity Referral - Knowledge Deficit Routine Comment: Positive screening for knowledge deficit needs. Attending Provider on DC: Kei Slater MD Discharging Provider: Kei Slater MD Hospital Course Hospital Course Hospital course: 88 y/o M with PMHx significant for dementia, BPH, seizures, glaucoma presented with chief complaint of intermittent chest pain x 2 hours. Patient altered at baseline, history taken from chart review and daughter at bedside. Patient reports moderate chest pain with mild shortness of breath during. Troponin only mildly elevated, EKG showed complete heart block with bradycardia. Cardiology was consulted, pacemaker was placed without incident. During course of hospital stay, patient developed worsening shortness of breath, chest x-ray indicating pneumonia. Patient was treated with antibiotics. Echo showed diastolic dysfunction and heart failure with reduced ejection fraction. Appropriate medications initiated with cardiology recommendations. Patient cleared from cardiology for discharge. Patient medically stable and cleared for discharge. Discharge plan: Please see your PCP and calculation reviewer within 1-2 weeks. Please take your new medications as prescribed: Doxycycline twice daily for three more days, Lisinopril 2.5mg once daily, Metoprolol succinate 25mg once daily, and Valproic acid 125mg twice daily Continue all other home medications as prescribed, and use O2 as needed. 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 Carrillo PGY?[address] Iqbal. Kei Slater MD PGY?1 Time Spent with Patient Time attestation: Total time spent providing and/or coordinating discharge services: Exam Vital Signs Temp Pulse Resp BP Pulse Ox O2 Del Method O2 Flow Rate 97.2 F 98 18 162/87 H 91 L Nasal Cannula 3 06/30/24 12:00 06/30/24 12:00 06/30/24 12:00 06/30/24 12:00 06/30/24 12:00 06/30/24 12:00 06/30/24 12:00 Discharge Plan Plan Patient Disposition: Xfer Skilled Nsg Fac (SNF) Patient condition on transfer: Stable Care Plan Goals: Please see your PCP and calculation reviewer within 1-2 weeks. Please take your new medications as prescribed: Doxycycline twice daily for three more days, Lisinopril 2.5mg once daily, Metoprolol succinate 25mg once daily, and Valproic acid 125mg twice daily Continue all other home medications as prescribed, and use O2 as needed. Prescriptions/Referrals Prescriptions/Med Rec: New metoprolol succinate 25 mg Tablet Extended Release 24 Hr 25 mg PO QDAY 30 Days Qty: 30 0RF lisinopril 2.5 mg Tablet 2.5 mg PO QDAY 30 Days Qty: 30 0RF doxycycline hyclate 100 mg Tablet 100 mg PO BID 3 Days Qty: 6 0RF valproic acid (as sodium salt) 250 mg/5 mL (5 mL) Solution 125 mg PO BID 30 Days Qty: 150 0RF Continued tamsulosin 0.4 mg capsule 0.4 mg PO QDAY latanoprost 0.005 % drops 1 drp Both eyes QPM memantine 5 mg tablet 5 mg PO BID Discontinued divalproex 250 mg tablet,delayed release (DR/EC) 250 mg PO BID Qty: 60 1RF divalproex 250 mg tablet,delayed release (DR/EC) 250 mg PO BID 30 Days Qty: 60 2RF Referrals: No Primary/Family,Physician [Primary Care Provider] - Dejan Awan MD [Physician] - Adis Mederos MD [Physician] - Patient/Caregiver Discharge Instructions Discharge Activity: resume usual activities Education Materials: Living with a Pacemaker, Discharge Instructions for ..., Preventing Surgical Site Infections, Procedural Sedation Print Language: Burmese Activity Restrictions/Additional Instructions: Please call to schedule a follow up appointment to be seen by Dr. Awan, (Bed Maker), in his office within one week upon discharge. . Address: [address] [place] [address]. [phone]. DO NOT REMOVE THE DRESSING THAT COVERS YOUR SURGICAL SITE, KEEP IT CLEAN AND DRY. If you need to take a shower, not recommended the same day of the surgery, but; until the following day, cover your dressing to keep it dry. If is easier for you, you can choose to take sponge baths to avoid getting your surgical dressing wet. You need to call the calculation reviewer?s office to schedule a follow up appointment. During this visit, your calculation reviewer will remove the dressing place on the surgical incision, DO NOT REMOVE IT BEFORE THIS DATE, and will take a look to the surgical site to make sure there is not complications after the procedure such as but not limited to infection. In addition, your calculation reviewer may consider to remove the teresa placed during this procedure on the same day of your appointment. Call your primary care doctor right away if you develop signs and symptoms of infection such as elevated temperature, malaise, redness to the surgical site, pain to the surgical site, or drainage. Stand Alone Forms: Hamida Award Info., Patient Portal Info Letter Discharge Order Discharge Orders: Discharge (Routine); Ordered 06/30/24 Ordered By: Nyla Mederos
--- NOTE | 2024-06-30 15:52 | PC.SS ---
Follow up note: SS followed up with Mine @ [facility] on authorization. She states they are waiting to communicate further with the [place] for auth approval. They currently state they are not going to approve to their facility. [facility] states they are contracted and their Director is in contact with [place] to clarify. We may have to look at other contracted facilities. Patient now on med/surg unit. Nursing states he's on restraints. Hx: dementia
--- NOTE | 2024-06-30 17:35 | PC.NURSE ---
Report received from Cassandra MCNULTY around 16:55 PM.
--- NOTE | 2024-06-30 17:39 | ESPR_ITS ---
<Statement entered by Nyla Mederos MD - 07/01/24 14:55> Patient seen and examined at bedside. No acute overnight events reported. Patient appears to be tachycardic even at rest, however is calm, often seen fidgeting with his towel. Patient is redirectable, however does take time. Patient is more oriented when around family members, especially his spouse. Patient is pending [facility]. Will order right upper quadrant ultrasound to evaluate for recent uptrend in LFTs. I discussed with and supervised the risk intern physician who took care of this patient. I personally saw and examined the patient and discussed the assessment and plan with the entire medicine team, including my attending Dr. Iqbal, I agree with most of the assessment and plan as documented below Nyla Mederos M.D. PGY-2 Disclaimer: Despite multiple revisions, due to the dictation software being used, the document bellow may not be free of grammatical errors including phonetic/typographic errors. However, this does not deter from our commitment to providing health care in the patient's best interest in mind. Documentation for date of: 06/30/24 Subjective Subjective Interval history: No overnight events. Patient seen and examined at bedside, resting comfortably. Patient remains disoriented, but calm and cooperative. Denies shortness of breath, chest pain, weakness, fatigue. Patient titrated off O2. Patient will be discharged pending insurance authorization for SNF placement. Ordered right upper quadrant ultrasound for transaminitis. Exam Vital Signs Temp Pulse Resp BP Pulse Ox O2 Del Method O2 Flow Rate 97.9 F 114 H 17 134/80 H 93 L Nasal Cannula 3 06/30/24 16:00 06/30/24 16:00 06/30/24 16:00 06/30/24 16:00 06/30/24 16:00 06/30/24 16:06/30/24 16:00 Narrative Exam PE: Gen: Well-developed and well-nourished. Thin. Elderly. HEENT: NCAT, PERRLA, EOMI, MMM, anicteric conjunctivae. CVS: normal S1 and S2. No M/R/G. RRR. Pacemaker. Resp: Lungs clear to auscultation bilaterally. Abd: soft, non-tender, non-distended. MSK: Good ROM in BUE & BLE. No rash. Trace pitting edema BLE. Neuro: CN II-XII grossly intact. Strength 5/5 in BUE & BLE. Alert and oriented x 1, disoriented. Calm and cooperative. Objective Labs 07/02/24 05:32 07/02/24 13:20 Labs: Laboratory Results - last 24 hr 06/30/24 05:45 WBC 11.5 H RBC 4.18 L Hgb 13.2 L Hct 38.1 L MCV 91 MCH 31.6 MCHC 34.6 RDW Std Deviation 40.2 Plt Count 291 Neut % (Auto) 80 Lymph % (Auto) 6 [place] % (Auto) 11 Eos % (Auto) 2 Baso % (Auto) 0 Neut # (Auto) 9.2 H Lymph # (Auto) 0.7 L [place] # (Auto) 1.3 H Eos # (Auto) 0.2 Baso # (Auto) 0.1 Immature Gran # (Auto) 0.03 H Absolute Nucleated RBC 0.00 Immature Gran % 0 Nucleated RBC % 0 Sodium 137 Potassium 3.7 Chloride 101 Carbon Dioxide 28.0 Anion Gap 8 BUN 22 Creatinine 0.8 Estim Creat Clear Calc 67.3 eGFR > 60 BUN/Creatinine Ratio 28 H Glucose 105 Calculated Osmolality 277 Calcium 9.1 Corrected Calcium 9.7 Phosphorus 3.6 Magnesium 2.0 Total Bilirubin 0.9 AST 150 H ALT 130 H Alkaline Phosphatase 124 H D Total Protein 5.6 L Albumin 3.2 L Globulin 2.4 Albumin/Globulin Ratio 1.3 Quality Measures Quality Measures VTE prophylaxis Advance care planning discussed with:: patient Assessment & Plan Assessment Current Active Medications: Generic Name Dose Route Start Last Admin Trade Name Freq PRN Reason Stop Dose Admin Atropine Sulfate 1 mg 06/24/24 18:33 Atropine Sulf Inj 0.1 Mg/Ml Syr 10 Ml IV Q3MIN PRN BRADYCARDIA HR LESS THAN 30 Doxycycline Hyclate 100 mg 06/25/24 21:00 06/30/24 08:28 Doxycycline 100 Mg Tablet PO 07/02/24 20:59 100 mg BID BLAIR Administration Furosemide 20 mg 06/27/24 09:00 06/30/24 08:29 Furosemide Inj 10 Mg/Ml Vial 2 Ml IVP 07/27/24 08:59 20 mg QDAY BLAIR Administration Guaifenesin 100 mg 06/26/24 12:30 06/30/24 16:54 Guaifenesin Syrup 200 Mg/10 Ml Udc PO 07/26/24 12:29 Not Given QID [facility] Protocol Latanoprost 0 drop 06/26/24 21:00 06/29/24 21:00 Latanoprost Op Leyla 0.005% 2.5 Ml Btl BOTH EYES 07/26/24 20:59 1 drop QPM BLAIR Administration Lisinopril 2.5 mg 06/28/24 09:00 06/30/24 08:28 Lisinopril 2.5 Mg Tablet PO 07/28/24 08:59 2.5 mg QDAY BLAIR Administration Memantine 5 mg 06/26/24 21:00 06/30/24 08:28 Memantine Hcl 5 Mg Tablet PO 07/26/24 20:59 5 mg BID BLAIR Administration Metoprolol Succinate 25 mg 06/26/24 10:00 06/30/24 08:28 Metoprolol Succinate Xl 25 Mg Tabcr PO 07/26/24 09:59 25 mg QDAY BLAIR Administration Valproic Acid 125 mg 06/26/24 09:00 06/30/24 08:28 Valproic Acid Syrup 250 Mg/5 Ml Udc PO 07/26/24 08:59 125 mg BID BLAIR Administration Plan 88 y/o M with PMHx significant for dementia, BPH, seizures, glaucoma presenting with chief complaint of intermittent chest pain x 2 hours, admitted for third- degree heart block. 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 Troponin negative, but EKG showed complete heart block with bradycardia. Cardiology was consulted, Dr. Awan recommended admission to telemetry, plan to place pacemaker tomorrow. Patient hemodynamically stable at this time. Endorses mild shortness of breath but saturating well. Considered dopamine drip, will not use due to elevated blood pressure, 175/62. Patient pacemaker implanted, well-tolerated. Patient has paced rhythm, regular rate and rhythm now. Troponin only mildly elevated. Cefazolin 1 g IV every 6 hours x 3 bags completed. Frequent PVCs seen on telemetry. EKG showed paced rhythm. Echo showed dilated left ventricle, ejection fraction 40-45%, diastolic dysfunction grade 3. -Cardiac diet -Cardiology consulted, appreciate recommendations -Telemetry -Metoprolol succinate 25 mg p.o. daily -Lasix 20 mg IV daily -Lisinopril 2.5 mg p.o. daily #Transaminitis Patient liver enzymes uptrending, AST 150, ALT 130, ALP 124. Possibly related to Rocephin which has been discontinued. -Monitor daily -RUQ ultrasound ordered, follow-up #Acute hypoxic respiratory failure (resolved) secondary to #Community acquired pneumonia # Acute decompensated heart failure On initial chest x-ray patient had right-sided infiltrates. At time, patient denies shortness of breath, cough, fever, chills. Patient had no WBC elevation or other signs of infection so was not treated. Overnight, patient developed cough, complains of mild cough without shortness of breath. Antibiotics initiated. Remains afebrile, no leukocytosis. Patient developed acute hypoxic respiratory failure, requiring 5 L/min of O2 via nasal cannula, saturating 92%. Bibasilar crackles on exam. Patient has been treated with Lasix, improvement lung sounds, O2 being titrated down. -Doxycycline 100 mg p.o. twice daily (started 06/25) -Rocephin 1 g IV daily (06/26?06/30) -Robitussin 100 mg p.o. 4 times daily as needed for cough -Supplemental O2, titrate down. -Treat heart failure as above #Seizures Patient was diagnosed with new onset seizures 1 month ago following a fall with EEG indicating seizure-like activity. Patient be discharged with Depakote, has not had seizure since. -Depakote 125 mg p.o. twice daily #Dementia #Hospital induced delirium Patient has history of dementia. A&O x 2 currently at patient's baseline. Patient hide mildly increased confusion following procedure, likely hospital induced delirium. -Delirium precautions -Avoid sedatives -Maintain good day night cycle -Encourage family visits -Home medication memantine 5 mg p.o. twice daily started #BPH, patient history #Glaucoma Patient is history as stated. -Latanoprost eyedrops daily -Holding tamsulosin due to recent pacemaker DVT prophylaxis: SCDs GI prophylaxis: None Diet: Cardiac Lines: Peripheral IV Code status: Limited code: No compressions or intubation, defibrillation acceptable Plan of care discussed with senior resident Dr. Mederos PGY?[address] Iqbal. Kei Slater MD PGY?1 Attending Provider Attestation/Addendum I, Faith Iqbal, DO, attest that I was physically present for the cuellar portions of the service and evaluated the patient with the resident and I reviewed and discussed the case with the resident and agree with the resident's findings and plans of care as documented above Patient seen and evaluated this AM. No acute events overnight. Patient downgraded from telemetry. Patient is much more alert and oriented. Pending placement at SNF.
--- NOTE | 2024-06-30 17:41 | XR_ITS ---
Examination: Abdomen sonogram, Limited Date and time of exam: June 30, 2024 2013 hrs. Indications: Elevated liver function tests on laboratory examination today Technique: Real-time ryan scale transabdominal sonographic images of the upper abdomen obtained. Findings: Negative for gallstones Gallbladder wall 0.5 cm Common bile duct 0.3 cm Pancreatic head 2.2 cm Liver 14.70 Impression: Normal hepatopedal portal venous flow Patent IVC Impression: Abnormal gallbladder wall thickening, clinical correlation advised Consider HIDA scan or MRCP follow-up
[2024-06-30] MEDS: LATANOPROST OP SOL 0.005% 2.5 ML BTL BOTH EYES (20:54)
[2024-07-01] VITALS (12 sets, daily range): BP systolic 114–167; BP diastolic 58–88; PULSE 72–104; RESP 18–26; TEMP 35.9–36.2; O2SAT 94–96; BMI 20.3
[2024-07-01] MEDS: guaiFENesin SYRUP 200 MG/10 ML UDC 100 MG PO ×2 (05:13→13:33)
--- NOTE | 2024-07-01 07:56 | PC.SS ---
LOG COOKER received phone call from patient?s spouse requesting SNF referral be submitted to [facility] in [place].? LOG COOKER submitted referral as requested on [facility] [place].? Spouse provided contact numbers for [employer] caregiver assistance and .? Caregiver assistance provides guidance with SNF placement and resources to [employer] members.?
[2024-07-01] MEDS: DOXYCYCLINE 100 MG TABLET PO (08:12)
[2024-07-01] MEDS: Lisinopril 2.5 MG TABLET PO (08:13)
[2024-07-01] MEDS: FUROSEMIDE INJ 10 MG/ML VIAL 2 ML 20 MG IVP (08:13)
[2024-07-01] MEDS: MEMANTINE HCL 5 MG TABLET PO (08:14)
[2024-07-01] MEDS: METOPROLOL SUCCINATE XL 25 MG TABCR PO (08:14)
[2024-07-01] MEDS: VALPROIC ACID SYRUP 250 MG/5 ML UDC 125 MG PO (08:14)
--- NOTE | 2024-07-01 08:43 | PC.SS ---
Addendum entered by HANS Lao 07/01/24 14:43: SS follow up: [facility] sent an updated list of contracted [facility] facilities. Notified patient's , Sammie. She selected [facility] as [facility] is unable to accept the patient due to a current [facility] hold. Reached out to Meli with admissions at [facility] and she is agreeable to begin working on insurance authorization on behalf of the patient today. Provided her my contact information to her for follow up questions. Addendum entered by HANS Lao 07/01/24 13:17: SS follow up: attempted contact with [place] [employer] department chair Allen [phone], left a voicemail with call back number. Addendum entered by HANS Lao 07/01/24 13:11: SS follow up: attempted contact with [place] [employer] department chair Arline Berg , left a voicemail with call back number. Addendum entered by HANS Lao 07/01/24 12:15: SS follow up: contacted Arianne at [facility] to determine if they are contracted through patient's insurance carrier through the [facility]. Arianne informed she will get back to . Addendum entered by HANS Lao 07/01/24 12:13: SS follow up: Attempted contact with Jesusita at the [facility] at [phone] ext [phone]. Left a voicemail with call back number. Original Note: SS follow up: spoke with Lena at [facility] who informed that the [facility] did not give authorization to their SNF. Attempted contact with Ejsusita at the [facility] at [phone] ext [phone]. Left a voicemail with call back number.
--- NOTE | 2024-07-01 11:40 | CHAP ---
Spiritual Care Volunteer prayed silently for patient. (Volunteer was in the hospital from 11:15-11:40).
--- NOTE | 2024-07-01 14:47 | ESPR_ITS ---
<Statement entered by Nyla Mederos MD - 07/01/24 15:37> I discussed with and supervised the internal combustion engine assembler physician who took care of this patient. I personally saw and examined the patient and discussed the assessment and plan with the entire medicine team, including my attending , I agree with most of the assessment and plan as documented below Nyla Mederos M.D. PGY-2 Documentation for date of: 07/01/24 Subjective Subjective Interval history: No overnight events. Patient seen examined at bedside. Patient somewhat lethargic, otherwise at baseline. Did not sleep well last night. Denies shortness of breath, chest pain, nausea, vomiting, fever, chills. Encouraged family at bedside to help maintain normal day night sleep cycle, opened blinds and turned on lights. Continue current medical management. Will DC pending authorization. Exam Vital Signs Temp Pulse Resp BP Pulse Ox O2 Del Method O2 Flow Rate 97.1 F 73 18 135/78 H 94 L Nasal Cannula 2 07/01/24 11:58 07/01/24 12:06 07/01/24 12:06 07/01/24 11:58 07/01/24 12:06 07/01/24 11:58 07/01/24 12:06 Narrative Exam PE: Gen: Well-developed and well-nourished. Thin. Elderly. HEENT: NCAT, PERRLA, EOMI, MMM, anicteric conjunctivae. CVS: normal S1 and S2. No M/R/G. RRR. Pacemaker. Resp: Lungs clear to auscultation bilaterally. Abd: soft, non-tender, non-distended. MSK: Good ROM in BUE & BLE. No rash. Trace pitting edema BLE. Neuro: CN II-XII grossly intact. Strength 5/5 in BUE & BLE. Alert and oriented x 1, disoriented. Calm and cooperative. Objective Labs 06/30/24 05:45 06/30/24 05:45 Quality Measures Quality Measures VTE prophylaxis Advance care planning discussed with:: patient Assessment & Plan Assessment Current Active Medications: Generic Name Dose Route Start Last Admin Trade Name Freq PRN Reason Stop Dose Admin Atropine Sulfate 1 mg 06/24/24 18:33 Atropine Sulf Inj 0.1 Mg/Ml Syr 10 Ml IV Q3MIN PRN BRADYCARDIA HR LESS THAN 30 Doxycycline Hyclate 100 mg 06/25/24 21:00 07/01/24 08:12 Doxycycline 100 Mg Tablet PO 07/02/24 20:59 100 mg BID BLAIR Administration Furosemide 20 mg 06/27/24 09:00 07/01/24 08:13 Furosemide Inj 10 Mg/Ml Vial 2 Ml IVP 07/27/24 08:59 20 mg QDAY BLAIR Administration Guaifenesin 100 mg 06/26/24 12:30 07/01/24 13:33 Guaifenesin Syrup 200 Mg/10 Ml Udc PO 07/26/24 12:29 100 mg QID BLAIR Administration Protocol Latanoprost 0 drop 06/26/24 21:00 06/30/24 20:54 Latanoprost Op Leyla 0.005% 2.5 Ml Btl BOTH EYES 07/26/24 20:59 1 drop QPM BLAIR Administration Lisinopril 2.5 mg 06/28/24 09:00 07/01/24 08:13 Lisinopril 2.5 Mg Tablet PO 07/28/24 08:59 2.5 mg QDAY BLAIR Administration Memantine 5 mg 06/26/24 21:00 07/01/24 08:14 Memantine Hcl 5 Mg Tablet PO 07/26/24 20:59 5 mg BID BLAIR Administration Metoprolol Succinate 25 mg 06/26/24 10:00 07/01/24 08:14 Metoprolol Succinate Xl 25 Mg Tabcr PO 07/26/24 09:59 25 mg QDAY BLAIR Administration Valproic Acid 125 mg 06/26/24 09:00 07/01/24 08:14 Valproic Acid Syrup 250 Mg/5 Ml Udc PO 07/26/24 08:59 125 mg BID BLAIR Administration Plan 88 y/o M with PMHx significant for dementia, BPH, seizures, glaucoma presenting with chief complaint of intermittent chest pain x 2 hours, admitted for third- degree heart block. 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 Troponin negative, but EKG showed complete heart block with bradycardia. Cardiology was consulted, Dr. Awan recommended admission to telemetry, plan to place pacemaker tomorrow. Patient hemodynamically stable at this time. Endorses mild shortness of breath but saturating well. Considered dopamine drip, will not use due to elevated blood pressure, 175/62. Patient pacemaker implanted, well-tolerated. Patient has paced rhythm, regular rate and rhythm now. Troponin only mildly elevated. Cefazolin 1 g IV every 6 hours x 3 bags completed. Frequent PVCs seen on telemetry. EKG showed paced rhythm. Echo showed dilated left ventricle, ejection fraction 40-45%, diastolic dysfunction grade 3. -Cardiac diet -Cardiology consulted, appreciate recommendations -Cardiac monitoring, med/tele -Metoprolol succinate 25 mg p.o. daily -Lasix 20 mg IV daily -Lisinopril 2.5 mg p.o. daily #Transaminitis Patient liver enzymes uptrending, AST 150, ALT 130, ALP 124. Possibly related to Rocephin which has been discontinued. Liver ultrasound showed only gallbladder wall thickening, nonspecific findings. -Monitor #Acute hypoxic respiratory failure (resolved) secondary to #Community acquired pneumonia # Acute decompensated heart failure, resolved On initial chest x-ray patient had right-sided infiltrates. At time, patient denies shortness of breath, cough, fever, chills. Patient had no WBC elevation or other signs of infection so was not treated. Overnight, patient developed cough, complains of mild cough without shortness of breath. Antibiotics initiated. Remains afebrile, no leukocytosis. Patient developed acute hypoxic respiratory failure, requiring 5 L/min of O2 via nasal cannula, saturating 92%. Bibasilar crackles on exam. Patient has been treated with Lasix, improvement lung sounds, O2 being titrated down. -Doxycycline 100 mg p.o. twice daily (started 06/25) -Rocephin 1 g IV daily (06/26?06/30) -Robitussin 100 mg p.o. 4 times daily as needed for cough -Supplemental O2, titrate down. -Treat heart failure as above #Seizures Patient was diagnosed with new onset seizures 1 month ago following a fall with EEG indicating seizure-like activity. Patient be discharged with Depakote, has not had seizure since. -Depakote 125 mg p.o. twice daily #Dementia #Hospital induced delirium Patient has history of dementia. A&O x 2 currently at patient's baseline. Patient hide mildly increased confusion following procedure, likely hospital induced delirium. -Delirium precautions -Avoid sedatives -Maintain good day night cycle -Encourage family visits -Home medication memantine 5 mg p.o. twice daily started #BPH, patient history #Glaucoma Patient is history as stated. -Latanoprost eyedrops daily -Holding tamsulosin due to recent pacemaker DVT prophylaxis: SCDs GI prophylaxis: None Diet: Cardiac Lines: Peripheral IV Code status: Limited code: No compressions or intubation, defibrillation acceptable Plan of care discussed with senior resident Dr. Mederos PGY?[address] Marquez. Kei Slater MD PGY?1 Attending Provider Attestation/Addendum I attest that I was physically present for the evaluation, physical examination, lab and imaging review of the patient with the residents. I discussed the case with the residents and agree with the findings and plans of care as documented above. At bedside today, patient is sleepy. As per patient's RN, patient did not get good sleep overnight. Continues to be on doxycycline, supplemental oxygen 1 L nasal cannula, Lasix. Lungs are clear to auscultation bilaterally. Awaiting insurance authorization for SNF placement. Josselyn Marquez MD
[2024-07-02] VITALS (9 sets, daily range): BP systolic 120–138; BP diastolic 62–84; PULSE 66–86; RESP 16–20; TEMP 36.1–36.6; O2SAT 92–98; BMI 20.5
[2024-07-02 05:55] LABS: Basophils # (Auto) 0.1 Thou/mm3 (0.0-0.2); Basophils % (Auto) 1 % (0-2.5); Eosinophils # (Auto) 0.7 Thou/mm3 (0.0-0.5); Eosinophils % (Auto) 5 % (0-10); Hematocrit 41.3 % (41.0-53.0); Hemoglobin 14.1 g/dL (13.5-16.0); Immature Granulocytes % (Auto) 0 % (0-0); Immature Granulocytes Auto 0.06 Thou/mm3 (0.00-0.00); Lymphocytes # (Auto) 1.5 Thou/mm3 (1.0-4.8); Lymphocytes % (Auto) 10 % (10-50); Mean Corpuscular HGB Conc 34.1 g/dl (31.0-37.0); Mean Corpuscular Hemoglobin 31.6 pg (25.0-35.0); Mean Corpuscular Volume 93 fL (80-100); Monocytes # (Auto) 1.5 Thou/mm3 (0.0-0.8); Monocytes % (Auto) 10 % (0-12); Neutrophils # (Auto) 10.6 Thou/mm3 (1.8-7.7); Neutrophils % (Auto) 74 % (37-80); Nucleated Red Blood Cell % 0 /100 WBC (0); Platelet Count 346 Thou/mm3 (140-440); Red Blood Count 4.46 Miln/mm3 (4.50-5.90); White Blood Count 14.4 Thou/mm3 (3.8-10.6)
[2024-07-02 06:26] LABS: Alanine Aminotransferase 142 U/L (10-49); Albumin, Serum 3.4 gm/dL (3.4-4.8); Albumin/Globulin Ratio 1.4 (1.2-2.2); Alkaline Phosphatase 143 U/L (46-116); Anion Gap 11 (7-16); Aspartate Amino Transferase 120 U/L (0-34); BUN/Creatinine Ratio 29 Ratio (12-20); Bilirubin,Total 0.7 mg/dL (0.3-1.2); Blood Urea Nitrogen 35 mg/dL (9-23); Calcium 9.2 mg/dL (8.3-10.6); Calcium (Corrected) 9.7 mg/dL (8.5-10.1); Chloride 101 mMol/L (98-107); Creatinine (Component) 1.2 mg/dL (0.6-1.3); Estimated Creatinine Clearance 44.6 mL/min (>60); Globulin 2.5 gm/dL (2.3-3.5); Glucose 107 mg/dL (74-106); Magnesium 2.3 mg/dL (1.6-2.6); Osmolality,Calculated 289 (275-295); Phosphorous 4.8 mg/dL (2.4-5.1); Potassium 3.9 mMol/L (3.4-5.1); Sodium 141 mMol/L (136-145); Total Protein 5.9 gm/dL (5.7-8.2); eGFR 58 See Note
--- NOTE | 2024-07-02 08:01 | PD.IMPROG ---
Documentation for date of: 07/02/24 Subjective Subjective Interval history: s/p PPM contine heart failure meds Exam Vital Signs Temp Pulse Resp BP Pulse Ox O2 Del Method O2 Flow Rate 97.9 F 68 20 120/63 93 L Nasal Cannula 2 07/02/24 04:00 07/02/24 04:00 07/02/24 04:00 07/02/24 04:00 07/02/24 04:00 07/02/24 04:00 07/02/24 04:00 Routine HEENT Exam Head: Present normocephalic and atraumatic Eye: Present EOMI and PERRL ENT: Present mucous membranes moist Routine Neck Exam Neck: Present supple and trachea midline Routine Respiratory Exam Respiratory: Present chest non-tender, lungs clear, normal breath sounds and no resp distress Routine Cardiovascular Exam Cardiovascular: Present RRR Routine Abdominal Exam Abdominal: Present soft and normoactive bowel sounds Routine Extremities Exam Extremities: Present full ROM Routine Skin Exam Skin: Present intact, dry and warm Routine Neurological Exam Neurological: Present alert, oriented X3 and CN II-XII intact Routine Psychiatric Exam Psychiatric: Present normal affect and normal thought process Objective Labs 07/02/24 05:32 07/02/24 05:32 Labs: Laboratory Results - last 24 hr 07/02/24 05:32 WBC 14.4 H RBC 4.46 L Hgb 14.1 Hct 41.3 MCV 93 MCH 31.6 MCHC 34.1 RDW Std Deviation 42.0 Plt Count 346 D Neut % (Auto) 74 Lymph % (Auto) 10 [place] % (Auto) 10 Eos % (Auto) 5 Baso % (Auto) 1 Neut # (Auto) 10.6 H Lymph # (Auto) 1.5 [place] # (Auto) 1.5 H Eos # (Auto) 0.7 H Baso # (Auto) 0.1 Immature Gran # (Auto) 0.06 H Absolute Nucleated RBC 0.00 Immature Gran % 0 Nucleated RBC % 0 Sodium 141 Potassium 3.9 Chloride 101 Carbon Dioxide 29.0 Anion Gap 11 BUN 35 H Creatinine 1.2 Estim Creat Clear Calc 44.6 L eGFR 58 L BUN/Creatinine Ratio 29 H Glucose 107 H Calculated Osmolality 289 Calcium 9.2 Corrected Calcium 9.7 Phosphorus 4.8 Magnesium 2.3 Total Bilirubin 0.7 AST 120 H ALT 142 H Alkaline Phosphatase 143 H Total Protein 5.9 Albumin 3.4 Globulin 2.5 Albumin/Globulin Ratio 1.4 Assessment & Plan A&P Narrative Status post permanent pacemaker placement continue heart failure meds Continue current medical management Time Spent With Patient Time: Total time spent is greater than 50% in coordination of care (as documented) at patient's floor/unit and/or counseling patient:
[2024-07-02] MEDS: VALPROIC ACID SYRUP 250 MG/5 ML UDC 125 MG PO (08:18)
[2024-07-02] MEDS: DOXYCYCLINE 100 MG TABLET PO (08:18)
[2024-07-02] MEDS: MEMANTINE HCL 5 MG TABLET PO (08:18)
[2024-07-02] MEDS: Lisinopril 2.5 MG TABLET PO (08:19)
[2024-07-02] MEDS: METOPROLOL SUCCINATE XL 25 MG TABCR PO (08:20)
--- NOTE | 2024-07-02 09:19 | PC.SS ---
Addendum entered by HANS Lao 07/02/24 15:07: Rounding note: patient receiving fluids, ENA improvement. Addendum entered by HANS Lao 07/02/24 15:05: Attempted contact with Meli with admissions at [facility], to get an update on current status, she was unavailable and a voicemail was provided with call back number. Addendum entered by HANS Lao 07/02/24 11:14: Updated patient's Sammie to make aware. Addendum entered by HANS Lao 07/02/24 11:11: [facility] notified them I sent PT note on [facility]. Addendum entered by HANS Lao 07/02/24 09:27: SS update: [facility] is requesting updated PT notes for the patient. Notified Dr. Francois to make aware it will be needed for insurance authorization. Original Note: SS follow up: [facility] contact with [facility], she was unavailable and a voicemail was provided with call back number.
[2024-07-02] MEDS: RINGERS LACTATED 1000 ML 500 ML 999 ML IV (09:21)
[2024-07-02] MEDS: guaiFENesin SYRUP 200 MG/10 ML UDC 100 MG PO ×2 (11:36→16:27)
[2024-07-02 13:55] LABS: Albumin, Serum 3.1 gm/dL (3.4-4.8); Anion Gap 8 (7-16); BUN/Creatinine Ratio 34 Ratio (12-20); Blood Urea Nitrogen 37 mg/dL (9-23); Calcium 9.4 mg/dL (8.3-10.6); Calcium (Corrected) 10.1 mg/dL (8.5-10.1); Carbon Dioxide 29.9 mMol/L (20.0-31.0); Chloride 103 mMol/L (98-107); Creatinine (Component) 1.1 mg/dL (0.6-1.3); Glucose 111 mg/dL (74-106); Osmolality,Calculated 290 (275-295); Phosphorous 4.5 mg/dL (2.4-5.1); Potassium 4.1 mMol/L (3.4-5.1); Sodium 141 mMol/L (136-145); eGFR > 60 See Note
--- NOTE | 2024-07-02 13:57 | ESPR_ITS ---
<Statement entered by Nyla Mederos MD - 07/02/24 15:36> I discussed with and supervised the intern architect physician who took care of this patient. I personally saw and examined the patient and discussed the assessment and plan with the entire medicine team, including my attending , I agree with most of the assessment and plan as documented below Nyla Mederos M.D. PGY-2 Documentation for date of: 07/02/24 Subjective Subjective Interval history: No overnight events. Patient seen and examined at bedside, resting comfortably. No new complaints. Patient given bolus for mild ENA secondary to dehydration. Lasix held. Pending SNF authorization. Exam Vital Signs Temp Pulse Resp BP Pulse Ox O2 Del Method O2 Flow Rate 97.0 F 73 19 130/68 98 Nasal Cannula 2 07/02/24 12:00 07/02/24 12:00 07/02/24 12:00 07/02/24 12:00 07/02/24 12:00 07/02/24 12:07/02/24 12:00 Narrative Exam PE: Gen: Well-developed and well-nourished. Thin. Elderly. HEENT: NCAT, PERRLA, EOMI, MMM, anicteric conjunctivae. CVS: normal S1 and S2. No M/R/G. RRR. Pacemaker. Resp: Lungs clear to auscultation bilaterally. Abd: soft, non-tender, non-distended. MSK: Good ROM in BUE & BLE. No rash. Trace pitting edema BLE. Neuro: CN II-XII grossly intact. Strength 5/5 in BUE & BLE. Alert and oriented x 1, disoriented. Calm and cooperative. Objective Labs 07/02/24 05:32 07/02/24 13:20 Labs: Laboratory Results - last 24 hr 07/02/24 07/02/24 05:32 13:20 WBC 14.4 H RBC 4.46 L Hgb 14.1 Hct 41.3 MCV 93 MCH 31.6 MCHC 34.1 RDW Std Deviation 42.0 Plt Count 346 D Neut % (Auto) 74 Lymph % (Auto) 10 [place] % (Auto) 10 Eos % (Auto) 5 Baso % (Auto) 1 Neut # (Auto) 10.6 H Lymph # (Auto) 1.5 [place] # (Auto) 1.5 H Eos # (Auto) 0.7 H Baso # (Auto) 0.1 Immature Gran # (Auto) 0.06 H Absolute Nucleated RBC 0.00 Immature Gran % 0 Nucleated RBC % 0 Sodium 141 141 Potassium 3.9 4.1 Chloride 101 103 Carbon Dioxide 29.0 29.9 Anion Gap 11 8 BUN 35 H 37 H Creatinine 1.2 1.1 Estim Creat Clear Calc 44.6 L 49.0 L eGFR 58 L > 60 BUN/Creatinine Ratio 29 H 34 H Glucose 107 H 111 H Calculated Osmolality 289 290 Calcium 9.2 9.4 Corrected Calcium 9.7 10.1 Phosphorus 4.8 4.5 Magnesium 2.3 Total Bilirubin 0.7 AST 120 H ALT 142 H Alkaline Phosphatase 143 H Total Protein 5.9 Albumin 3.4 3.1 L Globulin 2.5 Albumin/Globulin Ratio 1.4 Quality Measures Quality Measures VTE prophylaxis Advance care planning discussed with:: patient Assessment & Plan Assessment Current Active Medications: Generic Name Dose Route Start Last Admin Trade Name Freq PRN Reason Stop Dose Admin Atropine Sulfate 1 mg 06/24/24 18:33 Atropine Sulf Inj 0.1 Mg/Ml Syr 10 Ml IV Q3MIN PRN BRADYCARDIA HR LESS THAN 30 Doxycycline Hyclate 100 mg 06/25/24 21:00 07/02/24 08:18 Doxycycline 100 Mg Tablet PO 07/02/24 20:59 100 mg BID BLAIR Administration Furosemide 20 mg 06/27/24 09:00 07/01/24 08:13 Furosemide Inj 10 Mg/Ml Vial 2 Ml IVP 07/27/24 08:59 20 mg QDAY BLAIR Administration Guaifenesin 100 mg 06/26/24 12:30 07/02/24 11:36 Guaifenesin Syrup 200 Mg/10 Ml Udc PO 07/26/24 12:29 100 mg QID BLAIR Administration Protocol Latanoprost 0 drop 06/26/24 21:00 07/01/24 20:39 Latanoprost Op Leyla 0.005% 2.5 Ml Btl BOTH EYES 07/26/24 20:59 Not Given QPM BLAIR Lisinopril 2.5 mg 06/28/24 09:00 07/02/24 08:19 Lisinopril 2.5 Mg Tablet PO 07/28/24 08:59 2.5 mg QDAY BLAIR Administration Memantine 5 mg 03/07/25 21:00 07/02/24 08:18 Memantine Hcl 5 Mg Tablet PO 07/26/24 20:59 5 mg BID BLAIR Administration Metoprolol Succinate 25 mg 06/26/24 10:00 07/02/24 08:20 Metoprolol Succinate Xl 25 Mg Tabcr PO 07/26/24 09:59 25 mg QDAY BLAIR Administration Valproic Acid 125 mg 06/26/24 09:00 07/02/24 08:18 Valproic Acid Syrup 250 Mg/5 Ml Udc PO 07/26/24 08:59 125 mg BID BLAIR Administration Plan 88 y/o M with PMHx significant for dementia, BPH, seizures, glaucoma presenting with chief complaint of intermittent chest pain x 2 hours, admitted for third- degree heart block. #ENA, prerenal secondary to dehydration On hospital day 8, patient found to have mild ENA with creatinine elevated 0.8- 1.2. Patient has been receiving IV Lasix, likely prerenal secondary to dehydration. Patient given 500 mL bolus, Lasix held. 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 Troponin negative, but EKG showed complete heart block with bradycardia. Cardiology was consulted, Dr. Awan recommended admission to telemetry, plan to place pacemaker tomorrow. Patient hemodynamically stable at this time. Endorses mild shortness of breath but saturating well. Considered dopamine drip, will not use due to elevated blood pressure, 175/62. Patient pacemaker implanted, well-tolerated. Patient has paced rhythm, regular rate and rhythm now. Troponin only mildly elevated. Cefazolin 1 g IV every 6 hours x 3 bags completed. Frequent PVCs seen on telemetry. EKG showed paced rhythm. Echo showed dilated left ventricle, ejection fraction 40-45%, diastolic dysfunction grade 3. -Cardiac diet -Cardiology consulted, appreciate recommendations -Cardiac monitoring, med/tele -Metoprolol succinate 25 mg p.o. daily -Lasix 20 mg IV daily -Lisinopril 2.5 mg p.o. daily #Transaminitis Patient liver enzymes uptrending, AST 150, ALT 130, ALP 124. Possibly related to Rocephin which has been discontinued. Liver ultrasound showed only gallbladder wall thickening, nonspecific findings. LFTs downtrending. -Monitor #Acute hypoxic respiratory failure (resolved) secondary to #Community acquired pneumonia # Acute decompensated heart failure, resolved On initial chest x-ray patient had right-sided infiltrates. At time, patient denies shortness of breath, cough, fever, chills. Patient had no WBC elevation or other signs of infection so was not treated. Overnight, patient developed cough, complains of mild cough without shortness of breath. Antibiotics initiated. Remains afebrile, no leukocytosis. Patient developed acute hypoxic respiratory failure, requiring 5 L/min of O2 via nasal cannula, saturating 92%. Bibasilar crackles on exam. Patient has been treated with Lasix, improvement lung sounds, O2 being titrated down. -Doxycycline 100 mg p.o. twice daily (started 06/25) -Rocephin 1 g IV daily (06/26?06/30) -Robitussin 100 mg p.o. 4 times daily as needed for cough -Supplemental O2, titrate down. -Treat heart failure as above #Seizures Patient was diagnosed with new onset seizures 1 month ago following a fall with EEG indicating seizure-like activity. Patient be discharged with Depakote, has not had seizure since. -Depakote 125 mg p.o. twice daily #Dementia #Hospital induced delirium Patient has history of dementia. A&O x 2 currently at patient's baseline. Patient hide mildly increased confusion following procedure, likely hospital induced delirium. -Delirium precautions -Avoid sedatives -Maintain good day night cycle -Encourage family visits -Home medication memantine 5 mg p.o. twice daily started #BPH, patient history #Glaucoma Patient is history as stated. -Latanoprost eyedrops daily -Holding tamsulosin due to recent pacemaker DVT prophylaxis: SCDs GI prophylaxis: None Diet: Cardiac Lines: Peripheral IV Code status: Limited code: No compressions or intubation, defibrillation acceptable Plan of care discussed with senior resident Dr. Mederos PGY?[address] Marquez. Kei Slater MD PGY?1 Attending Provider Attestation/Addendum I attest that I was physically present for the evaluation, physical examination, lab and imaging review of the patient with the residents. I discussed the case with the residents and agree with the findings and plans of care as documented above. At bedside today, patient appears comfortable. Noted to have mild ENA with creatinine going up to 1.2 from 0.8. We will hold his Lasix and give him 500 cc of IV fluid bolus. We will also encourage oral hydration. His liver function have stabilized. Continues to be on doxycycline. Awaiting insurance authorization. Josselyn Marquez MD
--- NOTE | 2024-07-02 16:46 | ESDS_ITS ---
<Statement entered by Nyla Mederos MD - 07/03/24 07:48> I discussed with and supervised the internet site designer physician who took care of this patient. I personally saw and examined the patient and discussed the assessment and plan with the entire medicine team, including my attending Dr. Marquez , I agree with most of the assessment and plan as documented below Nyla Mederos M.D. PGY-2 Planned Discharge Date 07/02/24 DS: Providers Provider Date of admission: 06/24/24 17:25 Primary care physician: Physician Ange Primary/Family Admitting Provider: Faith Iqbal DO Attending Provider on Admission: Josselyn Marquez MD Consults: 06/24/24 18:11 Consult to Cardiology Stat Comment: Consulting Provider: Dejan Awan 06/24/24 23:58 Referral [facility] Routine Comment: Referral Physical Therapy Routine Comment: Physician Instructions: Referral Respiratory Therapy Routine Comment: [facility] Referral - Knowledge Deficit Routine Comment: Positive screening for knowledge deficit needs. Attending Provider on DC: Josselyn Marquez MD Discharging Provider: Kei Slater MD DS: Diagnosis Problem List Completed Was Problem List Reviewed/Reconciled?: Yes Hospital Course Hospital Course Hospital course: 88 y/o M with PMHx significant for dementia, BPH, seizures, glaucoma presenting with chief complaint of intermittent chest pain x 2 hours, admitted for third- degree heart block 06/24/2024.. Patient received pacemaker implantation which was well-tolerated, patient paced rhythm regular rate afterwards. Echo showed dilated left ventricle, ejection fraction 40-45%, diastolic dysfunction grade 3. Patient was started on Lasix and metoprolol. Patient did develop mild ENA, improved with IV fluids, Lasix was held and patient encouraged to increase oral hydration. Patient found to have community-acquired pneumonia during hospital stay, treated appropriately with full course of antibiotics. Patient was evaluated by PT, determined patient would benefit from further physical therapy at rehab facility. Patient medically stable and cleared for discharge. Discharge plan: Please see your PCP and speeder worker within 1-2 weeks. Please take your new medications as prescribed: Lisinopril 2.5mg once daily, Metoprolol succinate 25mg once daily, and Valproic acid 125mg twice daily. Continue all other home medications as prescribed, and use O2 as needed. Return to the ED if you develop new or worsening symptoms. 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 Mederos PGY?[address] Marquez. Kei Slater MD PGY?1 Time Spent with Patient Time attestation: Total time spent providing and/or coordinating discharge services: Time spent: Greater than 30 minutes Exam Vital Signs Temp Pulse Resp BP Pulse Ox O2 Del Method O2 Flow Rate 97.0 F 73 19 130/68 98 Nasal Cannula 2 07/02/24 12:07/02/24 12:07/02/24 12:07/02/24 12:07/02/24 12:07/02/24 12:07/02/24 12:00 Narrative Exam PE: Gen: Well-developed and well-nourished. Thin. Elderly. HEENT: NCAT, PERRLA, EOMI, MMM, anicteric conjunctivae. CVS: normal S1 and S2. No M/R/G. RRR. Pacemaker. Resp: Lungs clear to auscultation bilaterally. Abd: soft, non-tender, non-distended. MSK: Good ROM in BUE & BLE. No rash. Trace pitting edema BLE. Neuro: CN II-XII grossly intact. Strength 5/5 in BUE & BLE. Alert and oriented x 1, disoriented. Calm and cooperative. Discharge Plan Plan Patient Disposition: [facility] Disposition Comment: [facility] Patient condition on transfer: Stable Care Plan Goals: Please see your PCP and speeder worker within 1-2 weeks. Please take your new medications as prescribed: Lisinopril 2.5mg once daily, Metoprolol succinate 25mg once daily, and Valproic acid 125mg twice daily. Continue all other home medications as prescribed, and use O2 as needed. Return to the ED if you develop new or worsening symptoms. Prescriptions/Referrals Prescriptions/Med Rec: New metoprolol succinate 25 mg Tablet Extended Release 24 Hr 25 mg PO QDAY 30 Days Qty: 30 0RF lisinopril 2.5 mg Tablet 2.5 mg PO QDAY 30 Days Qty: 30 0RF doxycycline hyclate 100 mg Tablet 100 mg PO BID 3 Days Qty: 6 0RF valproic acid (as sodium salt) 250 mg/5 mL (5 mL) Solution 125 mg PO BID 30 Days Qty: 150 0RF Continued tamsulosin 0.4 mg capsule 0.4 mg PO QDAY latanoprost 0.005 % drops 1 drp Both eyes QPM memantine 5 mg tablet 5 mg PO BID Discontinued divalproex 250 mg tablet,delayed release (DR/EC) 250 mg PO BID Qty: 60 1RF divalproex 250 mg tablet,delayed release (DR/EC) 250 mg PO BID 30 Days Qty: 60 2RF Referrals: No Primary/Family,Physician [Primary Care Provider] - Dejan Awan MD [Physician] - Adis Mederos MD [Physician] - Patient/Caregiver Discharge Instructions Discharge Activity: resume usual activities Education Materials: Living with a Pacemaker, Discharge Instructions for ..., Preventing Surgical Site Infections, Procedural Sedation Print Language: Amharic Activity Restrictions/Additional Instructions: Please call to schedule a follow up appointment to be seen by Dr. Awan, (Incident Response Manager), in his office within one week upon discharge. . Address: [address] [place] [address]. DO NOT REMOVE THE DRESSING THAT COVERS YOUR SURGICAL SITE, KEEP IT CLEAN AND DRY. If you need to take a shower, not recommended the same day of the surgery, but; until the following day, cover your dressing to keep it dry. If is easier for you, you can choose to take sponge baths to avoid getting your surgical dressing wet. You need to call the speeder worker?s office to schedule a follow up appointment. During this visit, your speeder worker will remove the dressing place on the surgical incision, DO NOT REMOVE IT BEFORE THIS DATE, and will take a look to the surgical site to make sure there is not complications after the procedure such as but not limited to infection. In addition, your speeder worker may consider to remove the teresa placed during this procedure on the same day of your appointment. Call your primary care doctor right away if you develop signs and symptoms of infection such as elevated temperature, malaise, redness to the surgical site, pain to the surgical site, or drainage. Stand Alone Forms: [facility] Award Info., Patient Portal Info Letter Discharge Order Discharge Orders: Discharge (Routine); Ordered 07/02/24 Ordered By: Nyla Mederos Quality Discharge Quality Measures VTE prophylaxis MD Attestestation MD Attestation I attest that I was physically present for the evaluation, physical examination, lab and imaging review of the patient with the residents. I discussed the case with the residents and agree with the findings and plans of care as documented above. Josselyn Marquez MD
--- NOTE | 2024-07-02 17:13 | PC.SS ---
SS update: received a call that insurance authorization was obtained for the patient to go to [facility]. Notified patient's Sammie she was agreeable to d/c him there today. Updated medical team for d/c orders. [facility] sent via file exchange. Transportation arranged via [facility] for 6pm, GUSTAVO obtained by transfer nurse Rodney as the family requesting transportation arranged. Patient on 3L of oxygen. Notified bed side nurse, patient's and [facility].
--- NOTE | 2024-07-02 18:13 | PC.NURSE ---
DILMA Chamorro called and informed this nurse that patient is going to [facility] facility. FAHAD stated that family is aware. Report called in to accepting facility nurse Booker around 17:10 PM. [place] [facility] took patient around 17:45 PM.
== END 2024-07-02 17:45 | disposition skilled nursing facility (03) | DRG 242 ==
LOC: SERX 17:30 → SERHOLD 17:46 → S2NX 06-25 06:10 → S3NX 06-30 08:54
PROVIDERS: Internal Medicine; Admitting Provider Internal Medicine; Emergency Provider Emergency Medicine; Visit Provider Student in an Organized Health Care Education/Training Program
PROC: 0JH606Z Insertion of Pacemaker, Dual Chamber into Chest Subcutaneous Tissue and Fascia, Open Approach (ICD-10-PCS; principal; 2024-06-25 07:30)
DX: I44.2 Atrioventricular block, complete (principal); J18.9 Pneumonia, unspecified organism; J96.01 Acute respiratory failure with hypoxia; I50.20 Unspecified systolic (congestive) heart failure; F05 Delirium due to known physiological condition; N17.9 Acute kidney failure, unspecified; I42.0 Dilated cardiomyopathy; H40.9 Unspecified glaucoma; N40.0 Benign prostatic hyperplasia without lower urinary tract symptoms; F03.90 Unspecified dementia, unspecified severity, without behavioral disturbance, psychotic disturbance, mood disturbance, and anxiety; G40.909 Epilepsy, unspecified, not intractable, without status epilepticus; R00.1 Bradycardia, unspecified; I49.3 Ventricular premature depolarization; R74.01 Elevation of levels of liver transaminase levels; E86.0 Dehydration; Z88.5 Allergy status to narcotic agent; Z87.891 Personal history of nicotine dependence; Z79.899 Other long term (current) drug therapy; Z91.81 History of falling
CPT/HCPCS: 36415; 71045; 76705; 80053; 80061; 80069; 81001; 83735; 83880; 84100; 84443; 84484; 85025; 85610; 85730; 87400; 87811; 93005; 93225; 93306; 97162; 99285; A4565; A4649; C1785; C1894; C1898; J0461; J0689; J0690; J0696; J1940; J2250; J2270; J2310; J3010; J3490; J7050; J7120; A9270